=== PATIENT | female | born 1970 | race Caucasian/White ===

== ENCOUNTER 2021-12-09 10:50 | Outpatient (CLI) | payer OTHER, SELFPAY ==
--- NOTE | ~2021-12-09 | XR_ITS ---
XR hip RT min 2V DATE: 12/09/2021 11:10 INDICATION: Right hip pain TECHNIQUE: AP and lateral views of right hip COMPARISON: None FINDINGS: Battery pack overlying right lower back, with right sacral neural foraminal lead. Normal alignment and mild to moderate degenerative change at the pubic symphysis and sacroiliac joint s. No fracture or dislocation, avascular necrosis or bone destruction of the right hip. There is mild ri ght hip osteoarthritis. IMPRESSION: Mild right hip osteoarthritis Reviewed, dictated and finalized at location B.
--- NOTE | ~2021-12-09 | XR_ITS ---
XR shoulder LT min 2V DATE: 12/09/2021 11:10 INDICATION: Left shoulder pain TECHNIQUE: 4 views COMPARISON: None FINDINGS: There is mild degenerative change at the left acromioclavicular joint. There is minimal per iarticular spurring of the humeral head consistent with mild left glenohumeral osteoarthritis. Normal alignment at the acromioclavicular and glenohumeral joints. No fracture or dislocation, periosteal r eaction or bone destruction or abnormal soft tissue calcification. There is mild dextroscoliosis as well as degenerative spurring of the upper thoracic spine. IMPRESSION: Mild degenerative changes at left acromioclavicular and glenohumeral joints Reviewed, dictated and finalized at location B. IMPRESSION: Mild degenerative changes at left acromioclavicular and glenohumera l joints
== END 2021-12-09 10:51 | disposition home or self-care (01) ==
PROVIDERS: PCP Nurse Practitioner; Visit Provider Nurse Practitioner
DX: M19.012 Primary osteoarthritis, left shoulder (principal); M16.11 Unilateral primary osteoarthritis, right hip
CPT/HCPCS: 73030; 73502

== ENCOUNTER 2022-05-15 10:11 | Outpatient (CLI) | payer OTHER, SELFPAY ==
--- NOTE | ~2022-05-15 | MM_ITS ---
EXAMINATION: MM screening [facility] BI w cornelia HISTORY: Screening mammogram TECHNIQUE: Craniocaudal and mediolateral oblique 3-D tomosynthesis images were obtained and synthetic 2-D images were generated. CAD analysis was submitted and interpreted. COMPARISON: 09/08/2016, 01/08/2015, 08/08/2013 BREAST PARENCHYMAL COMPOSITION: There are scattered areas of fibroglandular density. FINDINGS: No suspicious mass, calcification, or architectural distortion are identified in either homar ast to suggest malignancy. There has been no suspicious interval change. IMPRESSION: 1. No mammographic evidence of malignancy. 2. Recommend routine screening mammography in one year. BI-RADS Category 1: Negative Reviewed, dictated and finalized at location A. PER OPENER
== END 2022-05-15 10:12 | disposition home or self-care (01) ==
LOC: ANHIMG 10:14
PROVIDERS: PCP Nurse Practitioner; Visit Provider Nurse Practitioner
DX: Z12.31 Encounter for screening mammogram for malignant neoplasm of breast (principal)
CPT/HCPCS: 77063; 77067

== ENCOUNTER 2022-05-27 01:49 | Day surgery (SDC) | payer OTHER, SELFPAY ==
[2022-05-14 15:12] VITALS: BMI 32.3
[2022-05-27 08:42] VITALS: BP 151/100; PULSE 93; RESP 18; TEMP 36.2; O2SAT 99; BMI 37.0
[2022-05-27] MEDS: LACTATED RINGERS 1,000 ML 150 ML IV CONT (08:57)
--- NOTE | 2022-05-27 09:23 | WPDANESEPPF ---
Anes - Initial Pre Proc Eval Procedure: Operation Date: 05/27/22 09:45 Proposed Procedures p Esophagogastroduodenoscopy EGD - Drake Moreau MD Date/Time: 05/27/22 09:23 Surgeon: Drake Moreau MD Pre Op Diagnosis: gastric ulcer Patient Data Age: 51 Gender: F Height: 1.68 m Weight: 104.1 kg Last Vital Signs Temp 97.1 F L 05/27/22 08:42 Pulse 93 05/27/22 08:42 Resp 18 05/27/22 08:42 BP 151/100 H 05/27/22 08:42 Pulse Ox 99 05/27/22 08:42 O2 Del Method Room Air 05/27/22 08:42 Allergies Allergy/AdvReac Type Severity Reaction Status Date / Time No Known Allergies Allergy Verified 05/14/22 15:13 Home Medications Medication Instructions Recorded Confirmed Type acetaminophen 500 mg tablet 500 mg PO Q6H PRN Pain 04/14/22 05/14/22 History (Tylenol Extra Strength) amlodipine 10 mg tablet 10 mg PO DAILY 04/14/22 05/14/22 History bupropion HCl 300 mg 24 hr tablet, 450 mg PO QAM 04/14/22 05/14/22 History extended release clonidine HCl 0.1 mg tablet 0.1 mg PO DAILY 04/14/22 05/14/22 History duloxetine 60 mg capsule,delayed 60 mg PO BID 04/14/22 05/14/22 History release folic acid 800 mcg tablet 1 mg PO DAILY 04/14/22 05/14/22 History multivitamin (Daily Multi-Vitamin 1 tablet PO DAILY 04/14/22 05/14/22 History tablet) omeprazole 40 mg capsule,delayed 40 mg PO BID 04/14/22 05/14/22 History release tizanidine 4 mg capsule 4 mg PO TID PRN Muscle Spasm 04/14/22 05/14/22 History trazodone 150 mg tablet 150 mg PO QHS 04/14/22 05/14/22 History hydroxyzine pamoate 50 mg capsule 50 mg PO Q6H PRN Anxiety 05/14/22 05/14/22 History losartan 100 mg tablet 100 mg PO DAILY 05/14/22 05/14/22 History Patient hx anesthesia problems: none Family hx anesthesia problems: none Results Review: All pre-operative results and documents have been reviewed as part of the pre-operative evaluation. [facility] Past Medical History Medical History (Updated 04/14/22 @ 10:44 by PATIENCE Orellana) Anxiety Arthritis Cancer Gastric ulcer Hypertension IBS (irritable bowel syndrome) Migraine Pheochromocytoma Tobacco abuse Ulcer Social History Social History (Updated 04/14/22 @ 10:39 by David Fernandez) Smoking status: Current some day smoker Tobacco type: e-cigarettes/vaping Alcohol intake: current Drinks per week: 2 Alcohol use details: wine Substance use: never Substance use type: marijuana Last use: occasional Living arrangements: alone Spiritual care concerns: No Anes - Eval Final PreProcedure Day of Procedure 05/27/22 09:23 Patient weight: obese Heart: regular rate and rhythm Lungs: clear to auscultation Airway: Mallampati scale class II Neurological: alert and oriented Last oral intake: >/= 8 hours ASA classification: III Emergent: no Anesthetic plan: proceed Anesthesia type and monitoring: general GIVS and standard monitoring Results Review: All pre-operative results and documents have been reviewed as part of the pre-operative evaluation. Informed Consent: The patient's anesthetic plan and its attendant risks and benefits were discussed with the patient/family/POA. Questions were solicited and answers provided to the satisfaction of the patient/family/POA.
--- NOTE | 2022-05-27 09:46 | PM.HPGS ---
History of Present Illness History of Present Illness Consent: Risks, benefits, and alternatives have been discussed and questions answered. Patient agrees to proceed with procedure. Chief complaint: gastric ulcer Narrative: Lyudmila Isidro is a 51 year old female with gastric bypass 2013 and earlier this year had gastric ulcer, repeat egd at another hospital showed healing, she is using ppi daiy. Review of Systems Constitutional: Constitutional: Denies headache(s) and Denies weakness Eyes: Eyes: Denies blurry vision ENT: Reports Normal hearing present, Denies headache(s) and Denies neck pain Cardiovascular: Cardiovascular: Denies chest pain and Denies dyspnea Respiratory: Respiratory: Denies dyspnea Gastrointestinal: Gastrointestinal: Reports no additional gastrointestinal complaints Genitourinary: Genitourinary: Denies dysuria Musculoskeletal: Musculoskeletal: Denies neck pain Integumentary/Breasts: Skin/Breast: Denies dry skin Neurologic: Reports Normal hearing present, Denies headache(s) and Denies weakness Psychiatric: Psychiatric: Denies anxiety Endocrine: Endocrine: Denies change in body appearance Hematologic/Lymphatic: Hematologic/Lymphatic: Denies easy bleeding Allergic/Immunologic: Allergic/Immunologic: Denies urticaria PMFSH Past Medical History Medical History (Updated 04/14/22 @ 10:44 by PATIENCE Orellana) Anxiety Arthritis Cancer Gastric ulcer Hypertension IBS (irritable bowel syndrome) Migraine Pheochromocytoma Tobacco abuse Ulcer Surgical History Surgical History (Updated 05/27/22 @ 09:47 by Drake Moreau MD) Gastric bypass status for obesity Social History Social History (Updated 04/14/22 @ 10:39 by David Fernandez) Smoking status: Current some day smoker Tobacco type: e-cigarettes/vaping Alcohol intake: current Drinks per week: 2 Alcohol use details: wine Substance use: never Substance use type: marijuana Last use: occasional Living arrangements: alone Spiritual care concerns: No Meds Home Medications and Allergies Home Medications Medication Instructions Recorded Confirmed Type acetaminophen 500 mg tablet 500 mg PO Q6H PRN Pain 04/14/22 05/14/22 History (Tylenol Extra Strength) amlodipine 10 mg tablet 10 mg PO DAILY 04/14/22 05/14/22 History bupropion HCl 300 mg 24 hr tablet, 450 mg PO QAM 04/14/22 05/14/22 History extended release clonidine HCl 0.1 mg tablet 0.1 mg PO DAILY 04/14/22 05/14/22 History duloxetine 60 mg capsule,delayed 60 mg PO BID 04/14/22 05/14/22 History release folic acid 800 mcg tablet 1 mg PO DAILY 04/14/22 05/14/22 History multivitamin (Daily Multi-Vitamin 1 tablet PO DAILY 04/14/22 05/14/22 History tablet) omeprazole 40 mg capsule,delayed 40 mg PO BID 04/14/22 05/14/22 History release tizanidine 4 mg capsule 4 mg PO TID PRN Muscle Spasm 04/14/22 05/14/22 History trazodone 150 mg tablet 150 mg PO QHS 04/14/22 05/14/22 History hydroxyzine pamoate 50 mg capsule 50 mg PO Q6H PRN Anxiety 05/14/22 05/14/22 History losartan 100 mg tablet 100 mg PO DAILY 05/14/22 05/14/22 History Allergies Allergy/AdvReac Type Severity Reaction Status Date / Time No Known Allergies Allergy Verified 05/14/22 15:13 Vital Signs Vital Signs - 24 hr 05/27/22 08:42 Temperature 97.1 F L Pulse Rate 93 Respiratory Rate 18 Blood Pressure 151/100 H Pulse Oximetry 99 Oxygen Delivery Room Air Exam Const: General: comfortable and no acute distress HENMT: Face/Nose/Sinus: Normal nares present Eyes: General: appearance normal, both eyes and all related structures Neck: Neck: no JVD Resp: Auscultation: clear to auscultation bilaterally Cardio: Rate: regular rate Rhythm: regular rhythm GI: Inspection: non-distended GI Palp: Yes Soft to palpation Skin: General skin exam: normal color Neuro: General: gait normal Speech: normal speech Extrem: General: normal to insp
[2022-05-27 10:03] VITALS: BP 141/92; PULSE 88; RESP 22; O2SAT 95
[2022-05-27 10:13] VITALS: BP 155/100; PULSE 104; RESP 22; O2SAT 95
[2022-05-27 10:23] VITALS: BP 163/93; PULSE 92; RESP 21; O2SAT 97
== END 2022-05-27 10:38 | disposition home or self-care (01) ==
PROVIDERS: PCP Nurse Practitioner; Visit Provider Internal Medicine Gastroenterology
PROC: 0DJ08ZZ Inspection of Upper Intestinal Tract, Via Natural or Artificial Opening Endoscopic (ICD-10-PCS; CPT 43235; principal; 2022-05-27 09:45)
DX: Z09 Encounter for follow-up examination after completed treatment for conditions other than malignant neoplasm (principal); Z98.84 Bariatric surgery status; Z87.11 Personal history of peptic ulcer disease; I10 Essential (primary) hypertension; K58.9 Irritable bowel syndrome, unspecified; F17.290 Nicotine dependence, other tobacco product, uncomplicated
CPT/HCPCS: 43235; J2704; J7120

== ENCOUNTER 2022-07-21 13:39 | Outpatient (CLI) | payer OTHER, SELFPAY ==
--- NOTE | ~2022-07-21 | XR_ITS ---
Right Hand Technique: PA, oblique, and lateral views were obtained. Clinical History: Thumb pain Findings: No acute fracture or dislocation is seen. Osseous alignment is anatomic. Mild to moderate d egenerative change present at the first CMC joint. Soft tissues are unremarkable. Impression: No fracture or dislocation. Mild to moderate degenerative change at the first CMC joint. Reviewed, dictated and finalized at [facility]. 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 Mild to moderate degenerative change at the first CMC joint.
== END 2022-07-21 13:40 | disposition home or self-care (01) ==
PROVIDERS: PCP Nurse Practitioner; Visit Provider Nurse Practitioner
DX: M19.041 Primary osteoarthritis, right hand (principal)
CPT/HCPCS: 73130

== ENCOUNTER 2023-04-15 14:34 | Emergency (ER) | payer OTHER, SELFPAY ==
--- NOTE | ~2023-04-15 | XR_ITS ---
XR lumbar spine 2-3V 04/15/2023 15:03 Indication: Low back pain Procedure: 3 views lumbar spine Comparison: No prior studies for comparison. Findings: Vertebral body heights are maintained. There is degenerative grade 1 spondylolisthesis at L 3-4. There is disc narrowing at all lumbar levels. There is facet hypertrophy at L4-5 and L5-S1. Pedi cles intact. Sacral foramen are symmetric. There is a right transsacral lead, tip in the pelvis. Impression: 1: Moderate lumbar spondylosis. Reviewed, dictated and finalized at location A. Impression: 1: Moderate lumbar spondylosis.
--- NOTE | 2023-04-15 14:41 | ED.GENADULT ---
HPI - General Adult General Chief complaint: Fall Stated complaint: Fall Time Seen by Provider: 04/15/23 14:43 Source: patient, RN notes reviewed and old records reviewed Mode of arrival: ambulatory Limitations: no limitations History of Present Illness HPI narrative: 52-year-old female with a history of hypertension, anxiety and GERD presents to the [facility] with complaints of low back pain due to a slip and fall. Patient is unsure of how she fell but states that she was states that she was drinking alcohol last night when she fell down a couple of stairs. Reports generalized lower back pain. No bruising or swelling noted. No midline tenderness. No saddle anesthesia. No loss retention of bowel or bladder. Denies abdominal pain. Patient also states that she has bruising to the right lateral lower thigh, no pain or tenderness on palpation. Bruising appears older than 24 hours. Patient states last time she took her blood pressure medication was yesterday. No treatment prior to arrival Denies any headaches, blurry vision, change in vision. Denies any neck pain. While discussing negative x-ray or her lumbar spine patient reports that it feels like her heart is now racing. Has a history of anxiety, shortness of breath. Patient then reports that she has been drinking since Wednesday and has amnesia. Performed EKG. EKG she was showing sinus tach. Patient is pacing in room. Normal gait. Due to possible withdrawal symptoms, x-ray wanted to sent patient to ER for further evaluation, patient declined. Patient is alert and oriented x4. Answers questions appropriately. While patient was here had multiple changes of story including how long she had been drinking for ranging from 1-4 days. Patient not a very good historian Onset (ago): day(s) (1) Related Data Home Medications Medication Instructions Recorded Confirmed acetaminophen 500 mg tablet 500 mg PO Q6H PRN Pain 04/14/22 04/15/23 (Tylenol Extra Strength) amlodipine 10 mg tablet 10 mg PO DAILY 04/14/22 04/15/23 bupropion HCl 300 mg 24 hr tablet, 450 mg PO QAM 04/14/22 04/15/23 extended release clonidine HCl 0.1 mg tablet 0.1 mg PO DAILY 04/14/22 04/15/23 duloxetine 60 mg capsule,delayed 60 mg PO BID 04/14/22 04/15/23 release folic acid 800 mcg tablet 1 mg PO DAILY 04/14/22 04/15/23 multivitamin (Daily Multi-Vitamin 1 tablet PO DAILY 04/14/22 04/15/23 tablet) omeprazole 40 mg capsule,delayed 40 mg PO BID 04/14/22 04/15/23 release tizanidine 4 mg capsule 4 mg PO TID PRN Muscle Spasm 04/14/22 04/15/23 trazodone 150 mg tablet 150 mg PO QHS 04/14/22 04/15/23 hydroxyzine pamoate 50 mg capsule 50 mg PO Q6H PRN Anxiety 05/14/22 04/15/23 losartan 100 mg tablet 100 mg PO DAILY 05/14/22 04/15/23 Allergies Allergy/AdvReac Type Severity Reaction Status Date / Time No Known Allergies Allergy Verified 04/15/23 14:39 Review of Systems Review of Systems: All systems reviewed & are unremarkable except as noted in HPI and below Constitutional: Constitutional: Reports no additional constitutional complaints Eyes: Eyes: Reports no additional eye complaints ENT: Reports system reviewed and no additional complaints, except as documented Cardiovascular: Cardiovascular: Reports no additional cardiovascular complaints, Denies chest pain and Denies dyspnea Respiratory: Respiratory: Reports no additional respiratory complaints, Denies chest congestion, Denies cough and Denies dyspnea Gastrointestinal: Gastrointestinal: Reports no additional gastrointestinal complaints, Denies abdominal pain, Denies nausea and Denies vomiting Musculoskeletal: Musculoskeletal: Reports as per HPI Integumentary/Breasts: Skin/Breast: Reports system reviewed and no additional complaints, except as docu Neurologic: Reports as per HPI, Denies headache(s) and Reports other (Amnesia times 3-4 days) Psychiatric: Psychiatric: Reports as per HPI and Reports anxiety Allergic/Immunologic: Allergic/Immunol
[2023-04-15 14:45] VITALS: BP 189/103; PULSE 113; RESP 16; TEMP 37.1; O2SAT 100
[2023-04-15 15:15] VITALS: BP 194/93; PULSE 103
--- NOTE | 2023-04-15 15:18 | ECG_ITS ---
Measurements Intervals [place] Rate: 103 P: -4 NV: 158 QRS: 29 QRSD: 99 T: 13 QT: 342 QTc: 449 Interpretive Statements SINUS TACHYCARDIA BASELINE ARTIFACT- I, III, AVR, AVL, AVF BORDERLINE ECG NO PREVIOUS ECG AVAILABLE FOR COMPARISON Electronically Signed On 04-15-2023 15:24:07 CDT by Marcio Schumacher D.O.
[2023-04-15 15:32] VITALS: BP 180/98
== END 2023-04-15 15:50 | disposition left against medical advice (07) ==
PROVIDERS: Emergency Provider Nurse Practitioner; PCP Nurse Practitioner
DX: S39.012A Strain of muscle, fascia and tendon of lower back, initial encounter (principal); F41.9 Anxiety disorder, unspecified; I10 Essential (primary) hypertension; F17.290 Nicotine dependence, other tobacco product, uncomplicated; Z79.899 Other long term (current) drug therapy; W10.9XXA Fall (on) (from) unspecified stairs and steps, initial encounter
CPT/HCPCS: 72100; 93005; 99213; G0463

== ENCOUNTER 2023-06-01 02:31 | Day surgery (SDC) | payer OTHER, SELFPAY ==
[2023-05-17 13:31] VITALS: BMI 28.3
--- NOTE | 2023-05-24 11:58 | SUR.PREOP ---
Patient called regarding upcoming procedure. Message left on patient's voicemail regarding preop instructions, appointment times, and procedure prep.
[2023-06-01] VITALS (8 sets, daily range): BP systolic 163–202; BP diastolic 90–117; PULSE 69–83; RESP 18–23; TEMP 36.3; O2SAT 99–100; BMI 27.2
--- NOTE | 2023-06-01 08:50 | SUR.PREOP ---
MD Quesada attempted to be notified of pt BP and oral intake. was in procedure. awaiting callback. pt denies symptoms.
--- NOTE | 2023-06-01 09:11 | WPDANESEPPF ---
Anes - Initial Pre Proc Eval Procedure: Operation Date: 06/01/23 10:00 Proposed Procedures p Esophagogastroduodenoscopy - Drake Moreau MD Date/Time: 06/01/23 09:11 Surgeon: Drake Moreau MD Pre Op Diagnosis: GERD,Neoplasm screening Patient Data Age: 52 Gender: F Height: 1.68 m Weight: 76.6 kg Last Vital Signs Temp 36.3 C L 06/01/23 08:42 Pulse 80 06/01/23 08:42 Resp 20 06/01/23 08:42 BP 202/109 H 06/01/23 08:42 Pulse Ox 99 06/01/23 08:42 O2 Del Method Room Air 06/01/23 08:42 Allergies Allergy/AdvReac Type Severity Reaction Status Date / Time No Known Allergies Allergy Verified 06/01/23 08:40 Home Medications Medication Instructions Recorded Confirmed Type acetaminophen 500 mg tablet 500 mg PO Q6H PRN Pain 04/14/22 05/17/23 History (Tylenol Extra Strength) bupropion HCl 300 mg 24 hr tablet, 300 mg PO QAM 04/14/22 05/17/23 History extended release clonidine HCl 0.1 mg tablet 0.1 mg PO BID 04/14/22 05/17/23 History duloxetine 60 mg capsule,delayed 60 mg PO BID 04/14/22 05/17/23 History release multivitamin (Daily Multi-Vitamin 1 tablet PO DAILY 04/14/22 05/17/23 History tablet) tizanidine 4 mg capsule 4 mg PO BID PRN Muscle Spasm 04/14/22 05/17/23 History trazodone 150 mg tablet 150 mg PO QHS 04/14/22 05/17/23 History bupropion HCl 150 mg 24 hr tablet, 150 mg PO DAILY 05/17/23 05/17/23 History extended release cetirizine 10 mg tablet 10 mg PO DAILY 05/17/23 05/17/23 History ergocalciferol (vitamin D2) 1,250 50,000 unit PO WEEKLY 05/17/23 05/17/23 History mcg (50,000 unit) capsule (Vitamin D2) fluticasone propionate 50 50 mcg intranasal DAILY 05/17/23 05/17/23 History mcg/actuation nasal spray,suspension folic acid 1 mg tablet 1 mg PO DAILY 05/17/23 05/17/23 History hydroxyzine pamoate 25 mg capsule 25 mg PO Q6H PRN Anxiety 05/17/23 05/17/23 History lamotrigine 200 mg tablet 200 mg PO DAILY 05/17/23 05/17/23 History losartan 50 mg tablet 50 mg PO DAILY 05/17/23 05/17/23 History mecobalamin (vitamin B12) 500 mcg 500 mcg PO DAILY 05/17/23 05/17/23 History chewable tablet melatonin 5 mg tablet 5 mg PO HS PRN Insomnia 05/17/23 05/17/23 History pantoprazole 40 mg tablet,delayed 40 mg PO DAILY 05/17/23 05/17/23 History release phentermine 37.5 mg tablet 37.5 mg PO DAILY 05/17/23 05/17/23 History Patient hx anesthesia problems: none Family hx anesthesia problems: none Results Review: All pre-operative results and documents have been reviewed as part of the pre-operative evaluation. [facility] Past Medical History Medical History Anxiety Arthritis Cancer Gastric ulcer Hypertension IBS (irritable bowel syndrome) Migraine Pheochromocytoma Tobacco abuse Ulcer Surgical History Surgical History Gastric bypass status for obesity Social History Social History Smoking status: Current some day smoker Tobacco type: cigars Alcohol intake: never Drinks per week: 2 Alcohol use details: wine Substance use: former Substance use type: former substance user, methamphetamine and other Last use: occasional Living arrangements: with family Spiritual care concerns: No Anes - Eval Final PreProcedure Day of Procedure 06/01/23 09:11 Patient weight: overweight Heart: regular rate and rhythm Lungs: clear to auscultation Airway: Mallampati scale class II Neurological: alert and oriented Last oral intake: >/= 8 hours ASA classification: III Emergent: no Anesthetic plan: proceed Anesthesia type and monitoring: general GIVS and standard monitoring Results Review: All pre-operative results and documents have been reviewed as part of the pre-operative evaluation. Informed Consent: The patient's anesthetic plan and its attendant risks and b
[2023-06-01] MEDS: LACTATED RINGERS 1,000 ML 150 ML IV CONT (09:15)
--- NOTE | 2023-06-01 09:46 | PM.HPGS ---
History of Present Illness History of Present Illness Consent: Risks, benefits, and alternatives have been discussed and questions answered. Patient agrees to proceed with procedure. Chief complaint: GERD,Neoplasm screening Narrative: Lyudmila Isidro is a 52 year old female here for egd, had?gastric bypass 2013?with previous ulcer but EGD last year was ok, she is taking ppi. She is c/o dry mouth and sore tongue Review of Systems Constitutional: Constitutional: Denies headache(s) and Denies weakness Eyes: Eyes: Denies blurry vision ENT: Reports Normal hearing present, Denies headache(s) and Denies neck pain Cardiovascular: Cardiovascular: Denies chest pain and Denies dyspnea Respiratory: Respiratory: Denies dyspnea Gastrointestinal: Gastrointestinal: Reports no additional gastrointestinal complaints Genitourinary: Genitourinary: Denies dysuria Musculoskeletal: Musculoskeletal: Denies neck pain Integumentary/Breasts: Skin/Breast: Denies dry skin Neurologic: Reports Normal hearing present, Denies headache(s) and Denies weakness Psychiatric: Psychiatric: Denies anxiety Endocrine: Endocrine: Denies change in body appearance Hematologic/Lymphatic: Hematologic/Lymphatic: Denies easy bleeding Allergic/Immunologic: Allergic/Immunologic: Denies urticaria PMF Past Medical History Medical History (Updated 06/01/23 @ 09:48 by Drake Moreau MD) Anxiety Arthritis Cancer Gastric ulcer GERD (gastroesophageal reflux disease) Hypertension IBS (irritable bowel syndrome) Migraine Pheochromocytoma Tobacco abuse Ulcer Surgical History Surgical History Gastric bypass status for obesity Social History Social History Smoking status: Current some day smoker Tobacco type: cigars Alcohol intake: never Drinks per week: 2 Alcohol use details: wine Substance use: former Substance use type: former substance user, methamphetamine and other Last use: occasional Living arrangements: with family Spiritual care concerns: No Meds Home Medications and Allergies Home Medications Medication Instructions Recorded Confirmed Type acetaminophen 500 mg tablet 500 mg PO Q6H PRN Pain 04/14/22 05/17/23 History (Tylenol Extra Strength) bupropion HCl 300 mg 24 hr tablet, 300 mg PO QAM 04/14/22 05/17/23 History extended release clonidine HCl 0.1 mg tablet 0.1 mg PO BID 04/14/22 05/17/23 History duloxetine 60 mg capsule,delayed 60 mg PO BID 04/14/22 05/17/23 History release multivitamin (Daily Multi-Vitamin 1 tablet PO DAILY 04/14/22 05/17/23 History tablet) tizanidine 4 mg capsule 4 mg PO BID PRN Muscle Spasm 04/14/22 05/17/23 History trazodone 150 mg tablet 150 mg PO QHS 04/14/22 05/17/23 History bupropion HCl 150 mg 24 hr tablet, 150 mg PO DAILY 05/17/23 05/17/23 History extended release cetirizine 10 mg tablet 10 mg PO DAILY 05/17/23 05/17/23 History ergocalciferol (vitamin D2) 1,250 50,000 unit PO WEEKLY 05/17/23 05/17/23 History mcg (50,000 unit) capsule (Vitamin D2) fluticasone propionate 50 50 mcg intranasal DAILY 05/17/23 05/17/23 History mcg/actuation nasal spray,suspension folic acid 1 mg tablet 1 mg PO DAILY 05/17/23 05/17/23 History hydroxyzine pamoate 25 mg capsule 25 mg PO Q6H PRN Anxiety 05/17/23 05/17/23 History lamotrigine 200 mg tablet 200 mg PO DAILY 05/17/23 05/17/23 History losartan 50 mg tablet 50 mg PO DAILY 05/17/23 05/17/23 History mecobalamin (vitamin B12) 500 mcg 500 mcg PO DAILY 05/17/23 05/17/23 History chewable tablet melatonin 5 mg tablet 5 mg PO HS PRN Insomnia 05/17/23 05/17/23 History pantoprazole 40 mg tablet,delayed 40 mg PO DAILY 05/17/23 05/17/23 History release phentermine 37.5 mg tablet 37.5 mg PO DAILY 05/17/23 05/17/23 History Allergies Allergy/AdvReac Type Severity Reaction Status Date / Time No
--- NOTE | 2023-06-01 10:43 | SUR.PHASEII ---
pt had high blood pressure doing pre op, procedure, and postop. hydralazine 10mg given iv per yayo marcial crna. see bp flowsheet for vs. at 15 minutes after hydralazine, dr guadalupe informed of pts bp of 163/98. he rec pt be discharged and instructed to take bp meds as soon as she gets home. pt states she has not been very compliant with her meds recently. strongly encouraged pt to take meds as instructed and to get in touch with her pcp to discuss her bp readings. voiced understanding.
== END 2023-06-01 10:42 | disposition home or self-care (01) ==
PROVIDERS: PCP Nurse Practitioner; Visit Provider Internal Medicine Gastroenterology
PROC: 0DJ08ZZ Inspection of Upper Intestinal Tract, Via Natural or Artificial Opening Endoscopic (ICD-10-PCS; CPT 43235; principal; 2023-06-01 10:00)
DX: K29.50 Unspecified chronic gastritis without bleeding (principal); K21.9 Gastro-esophageal reflux disease without esophagitis; Z98.84 Bariatric surgery status; K58.9 Irritable bowel syndrome, unspecified; F41.9 Anxiety disorder, unspecified; I10 Essential (primary) hypertension; F17.290 Nicotine dependence, other tobacco product, uncomplicated; Z79.82 Long term (current) use of aspirin
CPT/HCPCS: 43239; 88305; J0360; J7120

== ENCOUNTER 2023-12-31 17:58 | Emergency (ER) | payer OTHER, SELFPAY ==
[2023-12-31 18:09] VITALS: BP 116/64; PULSE 87; RESP 14; TEMP 37.3; O2SAT 100
--- NOTE | 2023-12-31 18:54 | ED.GENADULT ---
HPI - General Adult General Chief complaint: Syncope Stated complaint: Fainted/Dizziness/Right Ankle Pain Source: patient Mode of arrival: ambulatory Limitations: no limitations History of Present Illness HPI narrative: Patient presents for evaluation after having a syncopal event just prior to arrival. She indicates she has had fairly constant lightheadedness for the last 4 days. Today she was walking to the refrigerator when she felt dizzy. She attempted to hold onto the refrigerator and found herself waking up on the floor. She thinks she hit her head. She is not sure the duration of time in which she had loss consciousness. No vomiting since the episode. She now reports pain in her occipital region of the head and in the right ankle. She denies any precipitating chest pain or shortness of breath. She believes she has a urinary tract infection. She states she has had urinary frequency and dysuria for 4 days. She also makes mention of the fact that she has had urinary and fecal incontinence as of late. She has a neurostimulator but is not currently turned on. She has a history of methamphetamine use but last use 3 weeks ago. Related Data Home Medications Medication Instructions Recorded Confirmed acetaminophen 500 mg tablet 500 mg PO Q6H PRN Pain 04/14/22 12/31/23 (Tylenol Extra Strength) bupropion HCl 300 mg 24 hr tablet, 300 mg PO QAM 04/14/22 12/31/23 extended release clonidine HCl 0.1 mg tablet 0.1 mg PO BID 04/14/22 12/31/23 duloxetine 60 mg capsule,delayed 60 mg PO BID 04/14/22 12/31/23 release multivitamin (Daily Multi-Vitamin 1 tablet PO DAILY 04/14/22 12/31/23 tablet) tizanidine 4 mg capsule 4 mg PO BID PRN Muscle Spasm 04/14/22 12/31/23 trazodone 150 mg tablet 150 mg PO QHS 04/14/22 12/31/23 bupropion HCl 150 mg 24 hr tablet, 150 mg PO DAILY 05/17/23 12/31/23 extended release cetirizine 10 mg tablet 10 mg PO DAILY 05/17/23 12/31/23 ergocalciferol (vitamin D2) 1,250 50,000 unit PO WEEKLY 05/17/23 12/31/23 mcg (50,000 unit) capsule (Vitamin D2) fluticasone propionate 50 50 mcg intranasal DAILY 05/17/23 12/31/23 mcg/actuation nasal spray,suspension folic acid 1 mg tablet 1 mg PO DAILY 05/17/23 12/31/23 hydroxyzine pamoate 25 mg capsule 25 mg PO Q6H PRN Anxiety 05/17/23 12/31/23 lamotrigine 200 mg tablet 200 mg PO DAILY 05/17/23 12/31/23 losartan 50 mg tablet 50 mg PO DAILY 05/17/23 12/31/23 mecobalamin (vitamin B12) 500 mcg 500 mcg PO DAILY 05/17/23 12/31/23 chewable tablet melatonin 5 mg tablet 5 mg PO HS PRN Insomnia 05/17/23 12/31/23 pantoprazole 40 mg tablet,delayed 40 mg PO DAILY 05/17/23 12/31/23 release phentermine 37.5 mg tablet 37.5 mg PO DAILY 05/17/23 12/31/23 amlodipine 5 mg tablet 5 mg PO DAILY 12/31/23 12/31/23 aripiprazole 2 mg tablet 2 mg PO DAILY 12/31/23 12/31/23 Allergies Allergy/AdvReac Type Severity Reaction Status Date / Time No Known Allergies Allergy Verified 12/31/23 17:59 Review of Systems Review of Systems: CONSTITUTIONAL: Denies fever, chills, or sweats. EYES: Denies visual changes, redness, or discharge. ENT: Denies rhinorrhea, congestion, sore throat, or otalgia. CARDIOVASCULAR: Denies chest pain, palpitations, or edema. RESPIRATORY: Denies cough or dyspnea. GASTROINTESTINAL: Denies abdominal pain, nausea, or vomiting. Reports recent fecal incontinence which is diarrhea GENITOURINARY: Reports urinary frequency and dysuria. Reports recent urinary incontinence. SKIN: Denies rash or itching. MUSCULOSKELETAL: Reports right ankle pain NEUROLOGIC: Reports headache. Reports syncopal episode earlier today. Reports lightheadedness for the past four days. PSYCHIATRIC: Denies anxiety or depression. [facility] Past Medical History Medical History Anxiety Arthritis Cancer Gastric ulcer GERD (gastroesophageal reflux disease) Hypertension IBS (irritable bowel syndrome) Migraine [place]
== END 2023-12-31 18:52 | disposition short-term general hospital (02) ==
PROVIDERS: Emergency Provider Nurse Practitioner; PCP Nurse Practitioner
DX: R55 Syncope and collapse (principal); F17.290 Nicotine dependence, other tobacco product, uncomplicated; M19.90 Unspecified osteoarthritis, unspecified site; K21.9 Gastro-esophageal reflux disease without esophagitis; I10 Essential (primary) hypertension; E66.9 Obesity, unspecified; Z68.25 Body mass index [BMI] 25.0-25.9, adult; Z98.84 Bariatric surgery status
CPT/HCPCS: 93005; 99213; G0463

== ENCOUNTER 2023-12-31 19:08 | Emergency (ER) | payer OTHER, SELFPAY ==
[2023-12-31 19:12] VITALS: BP 116/76; PULSE 77; RESP 18; TEMP 36.7; O2SAT 100
--- NOTE | 2023-12-31 19:17 | ECG_ITS ---
Test Date: 2023-12-31 19:23:01 Measurements Intervals Winn Rate: 75 P: 40 MS: 139 QRS: 39 QRSD: 87 T: 51 QT: 376 QTc: 422 Interpretive Statements SINUS RHYTHM NORMAL ECG No previous ECG available for comparison Electronically Signed On 12-31-2023 20:10:48 CDT by Marcio Schumacher D.O.
--- NOTE | 2023-12-31 20:32 | PC.NURSE ---
Pt came up to front desk person stating she is going to leave. Educated on risks/benefits and to come back for any worsening condition. Pt left at 2020.
== END 2023-12-31 20:20 | disposition left against medical advice (07) ==
PROVIDERS: Emergency Provider Emergency Medicine; PCP Nurse Practitioner
DX: R42 Dizziness and giddiness (principal)
CPT/HCPCS: 93005; 99199

== ENCOUNTER 2024-12-04 12:16 | Emergency (ER) | payer OTHER, SELFPAY ==
[2024-12-04 12:26] VITALS: BP 145/110; PULSE 100; RESP 20; TEMP 36.6; O2SAT 100
--- NOTE | 2024-12-04 14:36 | ED_ITS ---
HPI - General Adult General Chief complaint: Unspecified Stated complaint: joint pain Time Seen by Provider: 12/04/24 14:22 History of Present Illness HPI narrative: Pt presents with joint pain in hands and shoulders for several days. Pt denies fever. Pt is trying to make appointment with PCP. Pt denies injury. Pt has no FH of RA or other causes of arthiritis. Related Data Home Medications ?Medication ?Instructions ?Recorded ?Confirmed ?Last Taken ?Type acetaminophen 500 mg tablet 500 mg PO Q6H PRN Pain 04/14/22 12/31/23 05/31/23 History (Tylenol Extra Strength) bupropion HCl 300 mg 24 hr tablet, 300 mg PO QAM 04/14/22 12/31/23 05/31/23 History extended release clonidine HCl 0.1 mg tablet 0.1 mg PO BID 04/14/22 12/31/23 05/31/23 History duloxetine 60 mg capsule,delayed 60 mg PO BID 04/14/22 12/31/23 05/31/23 History release multivitamin (Daily Multi-Vitamin 1 tablet PO DAILY 04/14/22 12/31/23 05/31/23 History tablet) tizanidine 4 mg capsule 4 mg PO BID PRN Muscle Spasm 04/14/22 12/31/23 05/31/23 History trazodone 150 mg tablet 150 mg PO QHS 04/14/22 12/31/23 05/31/23 History bupropion HCl 150 mg 24 hr tablet, 150 mg PO DAILY 05/17/23 12/31/23 05/31/23 History extended release cetirizine 10 mg tablet 10 mg PO DAILY 05/17/23 12/31/23 05/31/23 History ergocalciferol (vitamin D2) 1,250 50,000 unit PO WEEKLY 05/17/23 12/31/23 05/31/23 History mcg (50,000 unit) capsule (Vitamin D2) fluticasone propionate 50 50 mcg intranasal DAILY 05/17/23 12/31/23 05/31/23 History mcg/actuation nasal spray,suspension folic acid 1 mg tablet 1 mg PO DAILY 05/17/23 12/31/23 05/31/23 History hydroxyzine pamoate 25 mg capsule 25 mg PO Q6H PRN Anxiety 05/17/23 12/31/23 05/31/23 History lamotrigine 200 mg tablet 200 mg PO DAILY 05/17/23 12/31/23 05/31/23 History losartan 50 mg tablet 50 mg PO DAILY 05/17/23 12/31/23 05/31/23 History mecobalamin (vitamin B12) 500 mcg 500 mcg PO DAILY 05/17/23 12/31/23 05/31/23 History chewable tablet melatonin 5 mg tablet 5 mg PO HS PRN Insomnia 05/17/23 12/31/23 05/31/23 History pantoprazole 40 mg tablet,delayed 40 mg PO DAILY 05/17/23 12/31/23 05/31/23 History release phentermine 37.5 mg tablet 37.5 mg PO DAILY 05/17/23 12/31/23 05/31/23 History amlodipine 5 mg tablet 5 mg PO DAILY 12/31/23 12/31/23 Unknown History aripiprazole 2 mg tablet 2 mg PO DAILY 12/31/23 12/31/23 Unknown History Allergies Allergy/AdvReac Type Severity Reaction Status Date / Time No Known Allergies Allergy Verified 12/04/24 12:29 Review of Systems Review of Systems: All systems reviewed & are unremarkable except as noted in HPI and below PMFSH Past Medical History Medical History Anxiety Arthritis Cancer Gastric ulcer GERD (gastroesophageal reflux disease) Hypertension IBS (irritable bowel syndrome) Migraine Pheochromocytoma Tobacco abuse Ulcer Surgical History Surgical History Gastric bypass status for obesity Family History Family History Mother Family history non-contributory Social History Social History Smoking status: Current some day smoker Tobacco type: cigars Alcohol intake: never Drinks per week: 2 Alcohol use details: wine Substance use type: former substance user, methamphetamine and other Last use: occasional Living arrangements: with family Gender identity (if verbalized by the patient): Female Spiritual care concerns: No Exam Const: General: cooperative, healthy appearing, comfortable and no acute distress HENMT: Head: normal to inspection Throat: posterior oropharynx normal Neck: Neck: normal visual inspection and full ROM Chest: Chest palpation & inspection: normal inspection of the chest Resp: Effort & Inspection: normal respiratory effort and able to speak in complete sentences Auscultation: clear to auscultation bilaterally Cardio: Rate: regular rate Rhythm: regular rhythm GI: Inspection: normal to inspection GI Palp: Yes abdominal tenderness Skin: General skin exam: normal color and no rashes or lesions noted Neuro: General: patient oriented x3 Speech: normal speech Motor exam (neuro): 5/5 motor strength present throughout Extrem: Other: swelling and tenderness to mcp joints o fnumerous fingers and tenderness ot shoulder joints. Pt needs arthritis work up outpatient and pt verbalized understanding of this and will call pcp. Will send home on course of prednisone for pain Psych: Appearance: grossly normal Mental Status: mental status grossly normal Course Vital Signs Vital signs: Vital Signs Temperature 98 F 12/04/24 12:26 Pulse Rate 100 12/04/24 12:26 Respiratory Rate 20 12/04/24 12:26 Blood Pressure 145/110 H 12/04/24 12:26 Pulse Oximetry 100 12/04/24 12:26 Oxygen Delivery Room Air 12/04/24 12:26 Temperature 98 F 12/04/24 12:26 Pulse Rate 100 12/04/24 12:26 Respiratory Rate 20 12/04/24 12:26 Blood Pressure 145/110 H 12/04/24 12:26 Pulse Oximetry 100 12/04/24 12:26 Oxygen Delivery Room Air 12/04/24 12:26 Medical Decision Making MDM Narrative Medical decision making narrative: Pt has polyarticluar arthiritis and needs outpatient work up. will send home on prednisone wean in meantime Vital Signs Vital Signs: Vital Signs Temperature 98 F 12/04/24 12:26 Pulse Rate 100 12/04/24 12:26 Respiratory Rate 20 12/04/24 12:26 Blood Pressure 145/110 H 12/04/24 12:26 Pulse Oximetry 100 12/04/24 12:26 Oxygen Delivery Room Air 12/04/24 12:26 Temperature 98 F 12/04/24 12:26 Pulse Rate 100 12/04/24 12:26 Respiratory Rate 20 12/04/24 12:26 Blood Pressure 145/110 H 12/04/24 12:26 Pulse Oximetry 100 12/04/24 12:26 Oxygen Delivery Room Air 12/04/24 12:26 Discharge Plan Discharge Clinical Impression: Polyarthritis Patient Disposition: Home Condition: Stable Instructions: Antibiotic Form, Autoimmune Disease (ED), Arthritis (ED) Patient Language: Marshallese Prescriptions: New prednisone 10 mg tablet See Taper PO DAILY 15 Days Qty: 45 0RF Taper: Prednisone Taper from 50 mg;15 days 50 mg DAILY for 3 Days and 0 Hour 40 mg DAILY for 3 Days and 0 Hour 30 mg DAILY for 3 Days and 0 Hour 20 mg DAILY for 3 Days and 0 Hour 10 mg DAILY for 3 Days and 0 Hour No Action amlodipine 5 mg tablet 5 mg PO DAILY aripiprazole 2 mg tablet 2 mg PO DAILY multivitamin [Daily Multi-Vitamin] Tablet 1 tablet PO DAILY acetaminophen [Tylenol Extra Strength] 500 mg tablet 500 mg PO Q6H PRN (Reason: Pain) clonidine HCl 0.1 mg tablet 0.1 mg PO BID tizanidine 4 mg capsule 4 mg PO BID PRN (Reason: Muscle Spasm) trazodone 150 mg tablet 150 mg PO QHS bupropion HCl 300 mg tablet extended release 24 hr 300 mg PO QAM duloxetine 60 mg capsule,delayed release(DR/EC) 60 mg PO BID losartan 50 mg tablet 50 mg PO DAILY lamotrigine 200 mg tablet 200 mg PO DAILY cetirizine 10 mg Tablet 10 mg PO DAILY pantoprazole 40 mg tablet,delayed release (DR/EC) 40 mg PO DAILY folic acid 1 mg tablet 1 mg PO DAILY ergocalciferol (vitamin D2) [Vitamin D2] 1,250 mcg (50,000 unit) capsule 50,000 unit PO WEEKLY fluticasone propionate 50 mcg/actuation spray,suspension 50 mcg INTRANASAL DAILY hydroxyzine pamoate 25 mg capsule 25 mg PO Q6H PRN (Reason: Anxiety) bupropion HCl 150 mg tablet extended release 24 hr 150 mg PO DAILY Rx Instructions: TAKE WITH 300MG FOR TOTAL 450MG DAILY melatonin 5 mg Tablet 5 mg PO HS PRN (Reason: Insomnia) mecobalamin (vitamin B12) 500 mcg Tablet,Chewable 500 mcg PO DAILY phentermine 37.5 mg Tablet 37.5 mg PO DAILY Rx Instructions: must administer 30 minutes before or 1-2 hours after breakfast Follow-up/Referrals: PHYSICIAN NOT ON STAFF,NONSTAFF [Non-Staff] -
== END 2024-12-04 15:14 | disposition home or self-care (01) ==
PROVIDERS: Emergency Provider Emergency Medicine
DX: M13.0 Polyarthritis, unspecified (principal); M25.542 Pain in joints of left hand; M25.541 Pain in joints of right hand; M25.512 Pain in left shoulder; M25.511 Pain in right shoulder; Z72.0 Tobacco use; Z98.84 Bariatric surgery status
CPT/HCPCS: 99281

== ENCOUNTER 2024-12-06 12:33 | Outpatient (CLI) | payer OTHER, SELFPAY ==
--- NOTE | ~2024-12-06 | XR_ITS ---
HISTORY: arthritis CHRONIC WORSENED PAIN COMPARISON: 07/21/2022 TECHNIQUE: 3 views of the bilateral hands were performed. FINDINGS: No acute fracture is identified. Gullwing deformity is identified within the proximal interphalangeal joint spaces of the second, thir d, fourth and fifth digits of both hands. Narrowing of the distal interphalangeal joints is also noted bilaterally. Degenerative disease within the first carpometacarpal joint space is identified bilaterally, right fa r more advanced than the left with bony remodeling and subchondral cyst formation. The remaining joint spaces are preserved. The carpal arcs of the left hand are intact. Crowding and joint space narrowing is identified within the carpal arcs of the right.. Moderate radiocarpal joint space narrowing with sclerosis of the distal radius is present, right wors e than left. Bone mineralization is age-appropriate. No significant soft tissue swelling. No radiopaque foreign body is identified. IMPRESSION: Severe degenerative disease, consistent with osteoarthritis based on distribution with the right hand far worse than the left, as detailed above. Reviewed, dictated and finalized at location A. IMPRESSION: Severe degenerative disease, consistent with osteoarthritis based on distributi on with the right hand far worse than the left, as detailed above.
== END 2024-12-06 12:34 | disposition home or self-care (01) ==
PROVIDERS: PCP Nurse Practitioner Family; Visit Provider Nurse Practitioner Family
DX: M19.041 Primary osteoarthritis, right hand (principal); M19.042 Primary osteoarthritis, left hand
CPT/HCPCS: 73130

== ENCOUNTER 2025-04-10 09:59 | Outpatient (CLI) | payer OTHER, SELFPAY ==
--- OUTSIDE RECORDS SUMMARY | 2025-01-25 06:40 | XMS_ITS ---
Author Organization [facility] Address [address] [place] [address] Care Team Providers Care Yard Coordinator Name Role Phone AndrewanandalidiaAlfredoAlea Primary Care Provider Keira Hamilton Unavailable [phone] REASON FOR VISIT 4 week F/U Medications Medication SIG (Take, Route, Frequency, Duration) Notes Start Date End Date Status Naltrexone HCl 50 MG 0.5 tablet Orally Once 02/08/2024 Not-Taking Vivitrol 380 MG as directed Intramuscular every 28 days 02/08/2024 Not-Taking Losartan Potassium 100 mg TAKE 1 TABLET BY MOUTH DAILY; Duration: 28 Active Pantoprazole Sodium 40 mg TAKE 1 TABLET BY MOUTH DAILY; Duration: 28 Not-Taking Fluticasone Propionate 50 MCG/ACT 1 spray in each nostril Nasally Once a day Not-Taking Vitamin D (Ergocalciferol) 1.25 MG (55979 UT) TAKE 1 CAPSULE BY MOUTH EVERY WEEK; Duration: 28 days Not-Taking Melatonin 5 mg TAKE 1 TABLET BY MOUTH EVERY EVENING; Duration: 28 Not-Taking risperiDONE 1 MG 1 tablet once daily Orally; Duration: 30 days Not-Taking hydrOXYzine HCl 50 MG 1-2 tablet Orally once daily at bedtime as needed for sleep; Duration: 30 days Not-Taking lamoTRIgine 100 mg TAKE 1 TABLET BY MOUTH EVERY NIGHT AT BEDTIME; Duration: 28 Not-Taking Acetaminophen Extra Strength 500 mg TAKE 1 TABLET BY MOUTH EVERY SIX HOURS; Duration: 28 days Active predniSONE 10 MG 1 tablet Orally Once a day; Duration: 5 days 12/06/2024 Active Diclofenac Potassium 50 MG 1 tablet with food or milk as needed Orally 3 times a day 12/06/2024 Active Loratadine 10 mg TAKE 1 TABLET BY MOUTH DAILY; Duration: 28 days Not-Taking amLODIPine Besylate 10 mg TAKE 1 TABLET BY MOUTH DAILY; Duration: 28 days Active buPROPion HCl ER (XL) 300 MG 1 tablet in the morning Orally Once a day; Duration: 30 days Please provide pill packs for patient. Patient may require prescriptions to be mailed to her. Active tiZANidine HCl 4 mg TAKE 1 TABLET BY MOUTH UP TO THREE TIMES A DAY; Duration: 28 days Active Folic Acid 1 mg TAKE 1 TABLET BY MOUTH DAILY; Duration: 28 Active Tab-A-Jeremias - TAKE 1 TABLET BY MOUTH DAILY; Duration: 28 Active Vitamin B-12 500 MCG TAKE 1 TABLET BY MOUTH DAILY; Duration: 28 Active hydrOXYzine HCl 50 MG 1-2 tablet Orally once daily at bedtime as needed for sleep; Duration: 30 days Please provide pill packs for patient. Patient may require prescriptions to be mailed to her. Active lamoTRIgine 100 MG 1 tablet Orally Once a day; Duration: 30 days Please provide pill packs for patient. Patient may require prescriptions to be mailed to her. Active risperiDONE 0.5 MG 1 tablet once nightly Orally; Duration: 30 days Please provide pill packs for patient. Patient may require prescriptions to be mailed to her. Active Naltrexone HCl 50 MG 1 tablet Orally Once a day; Duration: 30 days Please provide pill packs for patient. Patient may require prescriptions to be mailed to her. Active Gabapentin 100 MG 1 capsule Orally at bedtime; Duration: 30 days Please provide pill packs for patient. Patient may require prescriptions to be mailed to her. Active Strattera 40 MG 1 capsule in the morning Orally Once a day; Duration: 30 days Please provide pill packs for patient. Patient may require prescriptions to be mailed to her. Active Cymbalta 30 MG 1 capsule once daily Orally; Duration: 30 days Please provide pill packs for patient. Patient may require prescriptions to be mailed to her. Active traZODone HCl 150 MG 1 tablet at bedtime Orally Once a day; Duration: 30 days Please provide pill packs for patient. Patient may require prescriptions to be mailed to her. Active Wellbutrin XL 150 MG 1 tablet in the morning Orally Once a day; Duration: 30 days Please provide pill packs for patient. Patient may require prescriptions to be mailed to her. Active cloNIDine HCl 0.1 MG 1 tablet in the morning and 1 tablet in the evening Orally; Duration: 30 days Please provide pill packs for patient. Patient may require prescriptions to be mailed to her. Active Social History Sex Assigned At : Social History Observation Description Sex Assigned At Female Encounters Encounter Location Date Provider Diagnosis [address] [place] [address] 01/25/2025 Keira Hamilton Plan Of Treatment No Information Progress Notes * Roge CORRALESineDOB:1970 (54 yo F)Acc No.[id number]:01/25/2025 UNLOCKED PROGRESS NOTE Patient: Syd RUIZ Provider: NATALIYA Loja :1970 A ge:54 Y S ex:Female Date:01/25/2025 Address:[address] [place], [place] [id number] Pcp:Alea Choe Subjective: * Chief Complaints: * 1 . 4 week F/U. * HPI: D epression Screening: PHQ-9 L ittle interest or pleasure in doing things N early every day, F eeling down, depressed, or hopeless M ore than half the days, T rouble falling or staying asleep, or sleeping too much N early every day, F eeling tired or having little energy N early every day, P oor appetite or overeating N early every day, F eeling bad about yourself or that you are a failure, or have let yourself or your family down N ot at all, T rouble concentrating on things, such as reading the newspaper or watching television?Nearly every day, M oving or speaking so slowly that other people could have noticed; or the opposite, being so fidgety or restless that you have been moving around a lot more than usual?Several days, T houghts that you would be better off or of hurting yourself in some way Not at all, T otal Score 1 8, I nterpretation M oderately Severe Depression.?Intervention D epression Screening Findings P ositive, F ollow-Up for Depression N o Referral necessary, patient involved in behavioral health treatment .. S creening: [place] Suicide Severity Rating Scale (LF) D o you want to initiate with S creener form, 1 . Wish to be : Have you wished you were or wished you could go to sleep and not wake up? N o, 2 . Suicidal Thoughts: Have you actually had any thoughts of killing yourself? N o, 6 . Suicide Behavior Question: Have you ever done anything,started to do anything, or prepared to end your life? N o, I nterpretation: L ow Risk. * Medical History: * Medications: T aking Strattera 40 MG Capsule 1 capsule in the morning Orally Once a day , Notes to Pharmacist: Please provide pill packs for patient. Patient may require prescriptions to be mailed to her., Taking Cymbalta 30 MG Capsule Delayed Release Particles 1 capsule once daily Orally , Notes to Pharmacist: Please provide pill packs for patient. Patient may require prescriptions to be mailed to her., Taking traZODone HCl 150 MG Tablet 1 tablet at bedtime Orally Once a day , Notes to Pharmacist: Please provide pill packs for patient. Patient may require prescriptions to be mailed to her., Taking Wellbutrin XL 150 MG Tablet Extended Release 24 Hour 1 tablet in the morning Orally Once a day , Notes to Pharmacist: Please provide pill packs for patient. Patient may require prescriptions to be mailed to her., Taking cloNIDine HCl 0.1 MG Tablet 1 tablet in the morning and 1 tablet in the evening Orally , Notes to Pharmacist: Please provide pill packs for patient. Patient may require prescriptions to be mailed to her., Taking hydrOXYzine HCl 50 MG Tablet 1-2 tablet Orally once daily at bedtime as needed for sleep , Notes to Pharmacist: Please provide pill packs for patient. Patient may require prescriptions to be mailed to her., Taking lamoTRIgine 100 MG Tablet 1 tablet Orally Once a day , Notes to Pharmacist: Please provide pill packs for patient. Patient may require prescriptions to be mailed to her., Taking risperiDONE 0.5 MG Tablet 1 tablet once nightly Orally , Notes to Pharmacist: Please provide pill packs for patient. Patient may require prescriptions to be mailed to her., Taking Naltrexone HCl 50 MG Tablet 1 tablet Orally Once a day , Notes to Pharmacist: Please provide pill packs for patient. Patient may require prescriptions to be mailed to her., Taking Gabapentin 100 MG Capsule 1 capsule Orally at bedtime , Notes to Pharmacist: Please provide pill packs for patient. Patient may require prescriptions to be mailed to her., Taking buPROPion HCl ER (XL) 300 MG Tablet Extended Release 24 Hour 1 tablet in the morning Orally Once a day , Notes to Pharmacist: Please provide pill packs for patient. Patient may require prescriptions to be mailed to her., Taking tiZANidine HCl 4 mg Tablet TAKE 1 TABLET BY MOUTH UP TO THREE TIMES A DAY , Taking Folic Acid 1 mg Tablet TAKE 1 TABLET BY MOUTH DAILY , Taking Tab-A-Jeremias - Tablet TAKE 1 TABLET BY MOUTH DAILY , Taking Vitamin B-12 500 MCG Tablet TAKE 1 TABLET BY MOUTH DAILY , Taking amLODIPine Besylate 10 mg Tablet TAKE 1 TABLET BY MOUTH DAILY , Taking Acetaminophen Extra Strength 500 mg Tablet TAKE 1 TABLET BY MOUTH EVERY SIX HOURS , Taking predniSONE 10 MG Tablet 1 tablet Orally Once a day , Taking Diclofenac Potassium 50 MG Tablet 1 tablet with food or milk as needed Orally 3 times a day , Taking Losartan Potassium 100 mg Tablet TAKE 1 TABLET BY MOUTH DAILY , Not-Taking Loratadine 10 mg Tablet TAKE 1 TABLET BY MOUTH DAILY , Not- Taking Vitamin D (Ergocalciferol) 1.25 MG (85169 UT) Capsule TAKE 1 CAPSULE BY MOUTH EVERY WEEK , Not-Taking Melatonin 5 mg Tablet TAKE 1 TABLET BY MOUTH EVERY EVENING , Not-Taking risperiDONE 1 MG Tablet 1 tablet once daily Orally , Not-Taking hydrOXYzine HCl 50 MG Tablet 1-2 tablet Orally once daily at bedtime as needed for sleep , Not-Taking lamoTRIgine 100 mg Tablet TAKE 1 TABLET BY MOUTH EVERY NIGHT AT BEDTIME , Not-Taking Pantoprazole Sodium 40 mg Tablet Delayed Release TAKE 1 TABLET BY MOUTH DAILY , Not-Taking Fluticasone Propionate 50 MCG/ACT Suspension 1 spray in each nostril Nasally Once a day , Not-Taking Naltrexone HCl 50 MG Tablet 0.5 tablet Orally Once , Not-Taking Vivitrol 380 MG Suspension Reconstituted as directed Intramuscular every 28 days Objective: * Vitals: Assessment: Plan: * Treatment: * * Electronic signature of Iris Hamilton on 04/10/2025 at 05:05 AM CDT Sign off status: Pending * Provider: NATALIYA Loja Date: 0 01/25/2025 Generated for Avril malave/Rex/eTransmitting on: 1 05:05 AM CDT History and Physical Notes * HPI (History of Present Illness) Category Sub-Category Detail Notes Category Not es Depression Screening PHQ-9 Little inte rest or pleasure in doing things: Nearly every day Feeling down, depressed, or hopeless: Mo re than half the days Trouble falling or staying asleep, or sl eeping too much: Nearly every day Feeling tired or having little energy: N early every day Poor appetite or overeating: Nearly ever y day Feeling bad about yourself o r that you are a failure, or have let yourself or your family down: Not at all Trouble concentrating on thi ngs, such as reading the newspaper or watching television: Nearly every day Moving or speaking so slowly that other people could have noticed; or the opposite, being so fidgety or restless that you have been moving around a lot more than usual: Several days Thoughts that you would be b kayla off or of hurting yourself in some way: Not at all Total Score: 18 Interpretation: Moderately Severe Depres jerrod Intervention Depression Screening Findings: P ositive Follow-Up for Depression: No Referral necessary, patient involved in behavioral health treatment . Screening [place] Suicide Sev erity Rating Scale (LF) Do you want to initiate with: Screener form 1. Wish to be : Have you wished you were or wished you could go to sleep and not wake up?: No 2. Suicidal Thoughts: Have you actually had any thoughts of killing yourself?: No 6. Suicide Behavior Question: Have you ever done anything,started to do anything, or prepared to end your life?: No Interpretation:: Low Risk
--- OUTSIDE RECORDS SUMMARY | 2025-04-02 04:00 | XMS_ITS ---
Author Organization [facility] Address [address] [place] [address] Care Team Providers Care [employer] T[employer] Repairer Name Role Phone Alea Choe Primary Care Provider [phone] Keira Hamilton [phone] REASON FOR VISIT 4 week F/U Social History Sex Assigned At : Social History Observation Description Sex Assigned At Female Encounters Encounter Location Date Provider Diagnosis [address] [address] 04/02/2025 Keira Hamilton Plan Of Treatment No Information Progress Notes * Roge CORRALESPratibhaOB:1970 (54 yo F)Acc No.[id number]:04/02/2025 UNLOCKED PROGRESS NOTE Patient: Lyudmila RUIZ Provider: NATALIYA Loja :1970 A ge:54 Y S ex:Female Date:04/02/2025 Address:[address], [address], [place], [place] Pcp:Alea Choe Subjective: * Chief Complaints: * 1 . 4 week F/U. * Medical History: Objective: * Vitals: Assessment: Plan: * Treatment: * * Electronic signature of Iris Hamilton on 04/10/2025 at 05:05 AM CDT Sign off status: Pending * Provider: NATALIYA Loja Date: 1 Generated for Avril malave/Rex/Stevan on: 1 05:05 AM CDT
--- OUTSIDE RECORDS SUMMARY | 2025-04-09 09:00 | XMS_ITS ---
Author Organization [facility] Address [address] [place] [address] Care Team Providers Care Market Research Intern Name Role Phone ДмитрийAlfredoAlea Primary Care Provider Keira Hamilton Unavailable [phone] Allergies Allergen (clinical drug ingredient) Drug/Non Drug Allergy documented on EMR Reaction Allergy Type Onset Date Status Biaxin Unknown Drug Allergy Active REASON FOR VISIT missed last appt-last seen 12/27/24- 4 week f u Medications Medication SIG (Take, Route, Frequency, Duration) Notes Start Date End Date Status Vivitrol 380 MG as directed Intramuscular every 28 days; Duration: 28 days 02/27/2025 Active Cymbalta 30 MG 1 capsule Orally daily; Duration: 30 days Please provide pill packs [...] prescriptions to be mailed to her. Active Diclofenac Potassium 50 mg TAKE 1 TABLET BY MOUTH THREE TIMES A DAY WITH FOOD OR MILK NEEDED; Duration: 10 Active amLODIPine Besylate 10 mg TAKE 1 TABLET BY MOUTH DAILY; Duration: 28 days Active ARIPiprazole 5 MG 1 tablet Orally Once a day; Duration: 30 day(s) 02/21/2025 Active Losartan Potassium 100 mg TAKE 1 TABLET BY MOUTH DAILY; Duration: 28 Active Gabapentin 100 MG 2 capsule Orally twice a day; Duration: 30 days Please provide pill packs for patient. Patient may require prescriptions to be mailed to her. Active Folic Acid 1 mg TAKE 1 TABLET BY MOUTH DAILY; Duration: 28 Active Acetaminophen Extra Strength 500 mg TAKE 1 TABLET BY MOUTH EVERY SIX HOURS; Duration: 28 days Active Vitamin B-12 500 MCG TAKE 1 TABLET BY MOUTH DAILY; Duration: 28 Active Tab-A-Jeremias - TAKE 1 TABLET BY MOUTH DAILY; Duration: 28 Active tiZANidine HCl 4 mg TAKE 1 TABLET BY MOUTH UP TO THREE TIMES A DAY; Duration: 28 days Active risperiDONE 0.5 MG 1 tablet once nightly Orally; Duration: 30 days Please provide pill packs for patient. Patient may require prescriptions to be mailed to her. Active lamoTRIgine 100 MG 1 tablet Orally Once a day; Duration: 30 days Please provide pill packs for patient. Patient may require prescriptions to be mailed to her. Active Ondansetron HCl 4 MG 1 tablet Orally 3 times a day; Duration: 7 days As needed 02/27/2025 Active Naltrexone HCl 50 MG 1 tablet Orally Once a day; Duration: 30 days Please provide pill packs for patient. Patient may require prescriptions to be mailed to her. Active buPROPion HCl ER (XL) 300 MG 1 tablet in the morning Orally Once a day; Duration: 30 days Please provide pill packs for patient. Patient may require prescriptions to be mailed to her. Active hydrOXYzine HCl 50 MG 1-2 tablet [...] be mailed to her. Active Social History Tobacco Use: Social History Observation Description Date Details (start date - stop date) Light tobacco s moker NA - NA Sex Assigned At : Social History Observation Description Sex Assigned At Female Alcohol Screen (Audit-C) Question Answer Notes Did you have a drink containing alcohol in the p ast year? Yes Points 0 Interpretation Negative PRAPARE Question Answer Notes Date Completed/Updated: 08/16/2024 What is your current housing situation? I have housing [place] Are you worried about losing your housing? No What is the highest level of school that you have finished? More than high school What is your current work situation? Unemployed and seeking work In the past year, have you o r any family members you live with been unable to get any of the following when it was really needed? Check all that apply Phone Has lack of transportation k ept you from medical appointments, meetings, work or from getting things needed for daily living? No How often do you see or talk to people that you care about and feel close to? (For example: talking to friends on the phone, visiting friends or family, going to quaker or club meetings) More than 5 times a week How stressed are you? Stress is when someone feels tense, nervous, anxious, or can\t sleep at night because their mind is troubled Somewhat In the past year have you sp ent more than 2 nights in a row in a long term, halfway, half-way center, or juvenile correctional facility? No Do you feel physically and emotionally safe where you currently live? Unsure In the past year, have you b een afraid of your partner or ex-partner? I have not had a partner in the past year PRAPARE Score: 5 Tobacco Control (Standard) Question Answer Notes Additional Findings: Tobacco user Pipe smoker Tobacco use: Light tobacco smoker How often do you smoke cigarettes? Every day How many cigarettes a day do you smoke? 6-10 How soon after you wake up d o you smoke your first cigarette? 6-30 minutes Are you interested in quitting? 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 Vital Signs Weight 136lb 6oz lbs 04/09/2025 Height 66in in 04/09/2025 BMI 22.01 kg/m2 04/09/2025 Blood pressure systolic 110 mm Hg 04/09/20 25 Blood pressure diastolic 78 mm Hg 025 Heart Rate 96 /min 04/09/2025 Oximetry 98 % 04/09/2025 Temperature 98.1 degrees Fahrenheit 04/09/20 25 Respiratory Rate 16 /min 04/09/2025 Encounters Encounter Location Date Provider Diagnosis [facility] [address] [place] [address] 04/09/2025 Keira Hamilton PTSD (post-traumatic stress disorder) F43.10 ; Bipolar 1 disorder F31.9 ; Impaired concentration R41.840 ; Methamphetamine use F15.10 ; Alcohol abuse F10.10 ; Nicotine dependence, unspecified, uncomplicated F17.200 and Restless leg syndrome G25.81 Assessments Encounter Date Diagnosis (ICD Code) Assessment Notes Treatment Notes Treatment Clinical Notes Section Notes 04/09/2025 PTSD (post-traumatic stress disorder) (ICD-10 - F43.10) See assessment and plan for bipolar I disorder 04/09/2025 Bipolar 1 disorder (ICD-10 - F31.9) Duration (acute/chronic), stability (controlled/uncont rolled): Chronic, uncontrolled, patient not reportedly taking medications consistently or as prescribed, see HPI Current medications/effica cy: Somewhat, room for improvement Previous medication trials: Winfall, Prozac, Effexor, Trazodone Seroquel, Xanax, Wellbutrin, Zoloft, clonidine, Abilify (dizziness) Current/previous therapies: Follows up with therapy multiple times weekly Examination as documented - see pertinent aspects of office visit documentation. Pertinent diagnostics: UNABLE to assess during appointment today due to patient's emotional state and very pressured speech with notable circumstantiality, tangentiality and some loose associations (see above) Differential diagnoses: RECOMMENDATIONS: Consume well balanced diet, preferably low in saturated fats (solid at room temperature, such as butter, margarine, Crisco, etc) and low in sodium (<2,000mg per day). Consume plenty of fruits/vegetables, healthy grains/whole grains, unsaturated/health y fats (liquid at room temperature, such as olive oil, sunflower seed oil, canola, vegetable, etc.). Exercise regularly - Develop an exercise routine. 30 minutes of moderate exercise (walking at a brisk pace) 5 times per week is recommended. You should work hard enough to cause a sweat but still be able to talk with others while exercising. Exercise improves overall health - improves blood pressure and blood sugar, helps control weight, reduces stress, and improves mood. Practice stress reduction techniques, such as guided imagery, journaling, aromatherapy, acupuncture/acupre ssure, deep breathing, etc. Practice healthy sleep hygiene - maintain regular routine, no caffeine after 1PM, no exercise 1-2 hours prior to bedtime, keep bedroom dark and cool, no TV or electronics while in bed. Consider melatonin as needed. Consider cognitive behavioral therapy for insomnia (CBT-I). Consider/Continue therapy. Consider/Continue substance cessation therapy as needed - contact office if desiring medication assisted therapy. Manage co-morbid conditions. Continue monitoring symptoms - report persistent or worsening/concerni ng symptoms to the office or go to the ER. For mental health CRISIS, please reach out to [phone] ([employer] Suicide and Crisis Lifeline), 911, go to the emergency department, or contact the [facility] Crisis Unit/Team. Follow up as scheduled in 4 weeks or sooner if necessary. Follow up with PCP and/or other specialists as advised. NEXT STEP: Consider medication adjustments as needed. 04/09/2025 Impaired concentration (ICD-10 - R41.840) Duration (acute/chronic), stability (controlled/uncont rolled): Chronic, uncontrolled, patient not taking medications consistently or as prescribed, see HPI Current medications/effica cy: No Previous medication trials: Effexor, Wellbutrin, clonidine, Strattera Current/previous therapies: Follows up with therapy multiple times weekly Examination as documented - see pertinent aspects of office visit documentation. Pertinent diagnostics: UNABLE to assess during appointment today due to patient's emotional state and very pressured speech with notable circumstantiality, tangentiality and some loose associations (see above) Differential diagnoses: suspect likely related to uncontrolled bipolar I disorder, as well as continued methamphetamine use Provider and patient had long conversation about the need to take medications as prescribed consistently to help with mood - a period of weeks is required before being able to note how a medication regimen will affect a person's mood Provider also explained that doses are divided throughout the day often to minize side effects, such as sedation - yet another reason to take medications consistently as prescribed/discuss ed RECOMMENDATIONS: RESTART/modify other medications as prescribed - educated patient/guardian on adverse effects, risks and benefits, as well as alternative treatments Consume well balanced diet, preferably low in saturated fats (solid at room temperature, such as butter, margarine, Crisco, etc) and low in sodium (<2,000mg per day). Consume plenty of fruits/vegetables, healthy grains/whole grains, unsaturated/health y fats (liquid at room temperature, such as olive oil, sunflower seed oil, canola, vegetable, etc.). Exercise regularly - Develop an exercise routine. 30 minutes of moderate exercise (walking at a brisk pace) 5 times per week is recommended. You should work hard enough to cause a sweat but still be able to talk with others while exercising. Exercise improves overall health - improves blood pressure and blood sugar, helps control weight, reduces stress, and improves mood. Practice stress reduction techniques, such as guided imagery, journaling, aromatherapy, acupuncture/acupre ssure, deep breathing, etc. Practice healthy sleep hygiene - maintain regular routine, no caffeine after 1PM, no exercise 1-2 hours prior to bedtime, keep bedroom dark and cool, no TV or electronics while in bed. Consider melatonin as needed. Consider cognitive behavioral therapy for insomnia (CBT-I). Consider/Continue therapy. Consider/Continue substance cessation therapy as needed - contact office if desiring medication assisted therapy. Manage co-morbid conditions. Continue monitoring symptoms - report persistent or worsening/concerni ng symptoms to the office or go to the ER. For mental health CRISIS, please reach out to [phone] (National Suicide and Crisis Lifeline), 911, go to the emergency department, or contact the [facility] Crisis Unit/Team. Follow up as scheduled in 4 weeks or sooner if necessary. Follow up with PCP and/or other specialists as advised. NEXT STEP: Consider increasing nighttime dose of clonidine pending response/tolerabil ity. Consider further improvement of bipolar disorder management. 04/09/2025 Methamphetamine use (ICD-10 - F15.10) Duration (acute/chronic), stability (controlled/uncont rolled): Chronic, methamphetamine, has been using regularly for last few years, stopped in 07/2023 after loss of boyfriend, recent relapse reported during appointment, see HPI Current medications/effica cy: N/A Previous medication trials: N/A Current/previous therapies: Reportedly follows up with therapy multiple times weekly Examination as documented - see pertinent aspects of office visit documentation. Pertinent diagnostics: UNABLE to assess during appointment today due to patient's emotional state and very pressured speech with notable circumstantiality, tangentiality and some loose associations (see above) Differential diagnoses: Provider and patient had long conversation about the need to take medications as prescribed consistently to help with mood - a period of weeks is required before being able to note how a medication regimen will affect a person's mood Provider also explained that doses are divided throughout the day often to minize side effects, such as sedation - yet another reason to take medications consistently as prescribed/discuss ed RECOMMENDATIONS: RESTART/modify medications as prescribed - educated patient/guardian on adverse effects, risks and benefits, as well as alternative treatments Consume well balanced diet, preferably low in saturated fats (solid at room temperature, such as butter, margarine, Crisco, etc) and low in sodium (<2,000mg per day). Consume plenty of fruits/vegetables, healthy grains/whole grains, unsaturated/health y fats (liquid at room temperature, such as olive oil, sunflower seed oil, canola, vegetable, etc.). Exercise regularly - Develop an exercise routine. 30 minutes of moderate exercise (walking at a brisk pace) 5 times per week is recommended. You should work hard enough to cause a sweat but still be able to talk with others while exercising. Exercise improves overall health - improves blood pressure and blood sugar, helps control weight, reduces stress, and improves mood. Practice stress reduction techniques, such as guided imagery, journaling, aromatherapy, acupuncture/acupre ssure, deep breathing, etc. Practice healthy sleep hygiene - maintain regular routine, no caffeine after 1PM, no exercise 1-2 hours prior to bedtime, keep bedroom dark and cool, no TV or electronics while in bed. Consider melatonin as needed. Consider cognitive behavioral therapy for insomnia (CBT-I). Consider/Continue therapy. Continue substance cessation therapy as prescribed by MAT provider - call and schedule follow up with MAT clinic as discussed Manage co-morbid conditions. Continue monitoring symptoms - report persistent or worsening/concerni ng symptoms to the office or go to the ER. For mental health CRISIS, please reach out to [phone] (National Suicide and Crisis Lifeline), 911, go to the emergency department, or contact the [facility] Crisis Unit/Team. Follow up as scheduled or sooner if necessary. Follow up with PCP and/or other specialists as advised. NEXT STEP: Consider medication adjustments as needed. 04/09/2025 Alcohol abuse (ICD-10 - F10.10) Duration (acute/chronic), stability (controlled/uncont rolled): Chronic, Previously consumed heavily, daily, stopped usually heavily regularly about 3 years ago - reports continued intermittent heavy use Current medications/effica cy: N/A Previous medication trials: Naltrexone Current/previous therapies: Follows up with therapy multiple times weekly Examination as documented - see pertinent aspects of office visit documentation. Pertinent diagnostics: UNABLE to assess during appointment today due to patient's emotional state and very pressured speech with notable circumstantiality, tangentiality and some loose associations (see above) Differential diagnoses: Provider and patient had long conversation about the need to take medications as prescribed consistently to help with mood - a period of weeks is required before being able to note how a medication regimen will affect a person's mood Provider also explained that doses are divided throughout the day often to minize side effects, such as sedation - yet another reason to take medications consistently as prescribed/discuss ed RECOMMENDATIONS: RESTART/modify medications as prescribed - educated patient/guardian on adverse effects, risks and benefits, as well as alternative treatments Consume well balanced diet, preferably low in saturated fats (solid at room temperature, such as butter, margarine, Crisco, etc) and low in sodium (<2,000mg per day). Consume plenty of fruits/vegetables, healthy grains/whole grains, unsaturated/health y fats (liquid at room temperature, such as olive oil, sunflower seed oil, canola, vegetable, etc.). Exercise regularly - Develop an exercise routine. 30 minutes of moderate exercise (walking at a brisk pace) 5 times per week is recommended. You should work hard enough to cause a sweat but still be able to talk with others while exercising. Exercise improves overall health - improves blood pressure and blood sugar, helps control weight, reduces stress, and improves mood. Practice stress reduction techniques, such as guided imagery, journaling, aromatherapy, acupuncture/acupre ssure, deep breathing, etc. Practice healthy sleep hygiene - maintain regular routine, no caffeine after 1PM, no exercise 1-2 hours prior to bedtime, keep bedroom dark and cool, no TV or electronics while in bed. Consider melatonin as needed. Consider cognitive behavioral therapy for insomnia (CBT-I). Consider/Continue therapy. Continue substance cessation therapy as prescribed by MAT provider - call and schedule follow up with MAT clinic as discussed. Manage co-morbid conditions. Continue monitoring symptoms - report persistent or worsening/concerni ng symptoms to the office or go to the ER. For mental health CRISIS, please reach out to [phone] (National Suicide and Crisis Lifeline), 911, go to the emergency department, or contact the [facility] Crisis Unit/Team. Follow up as scheduled or sooner if necessary. Follow up with PCP and/or other specialists as advised. NEXT STEP: Consider medication adjustments as needed. 04/09/2025 Nicotine dependence, unspecified, uncomplicated (ICD-10 - F17.200) Duration (acute/chronic), stability (controlled/uncont rolled): Chronic, sometimes will smoke cigar Current medications/effica cy: N/A Previous medication trials: N/A Current/previous therapies: Follows up with therapy multiple times weekly Examination as documented - see pertinent aspects of office visit documentation. Pertinent diagnostics: UNABLE to assess during appointment today due to patient's emotional state and very pressured speech with notable circumstantiality, tangentiality and some loose associations (see above) Differential diagnoses: Provider and patient had long conversation about the need to take medications as prescribed consistently to help with mood - a period of weeks is required before being able to note how a medication regimen will affect a person's mood Provider also explained that doses are divided throughout the day often to minize side effects, such as sedation - yet another reason to take medications consistently as prescribed/discuss ed RECOMMENDATIONS: Consider substance cessation therapy as needed - contact office if desiring medication assisted therapy. Manage co-morbid conditions. Continue monitoring symptoms - report persistent or worsening/concerni ng symptoms to the office or go to the ER. For mental health CRISIS, please reach out to [phone] (National Suicide and Crisis Lifeline), 911, go to the emergency department, or contact the [facility] Crisis Unit/Team. Follow up as scheduled or sooner if necessary. Follow up with PCP and/or other specialists as advised. NEXT STEP: Consider MAT as needed. 04/09/2025 Restless leg syndrome (ICD-10 - G25.81) Plan Of Treatment Medication Medication Name Sig Start Date Stop Date Notes Cymbalta 30 MG 1 capsule Orally daily; Duration: 30 days Please provide pill packs for patient. Patient may require prescriptions to be mailed to her. Strattera 40 MG 1 capsule in the morning Orally Once a day; Duration: 30 days Please provide pill packs for patient. Patient may require prescriptions to be mailed to her. Wellbutrin XL 150 MG 1 tablet in the morning Orally Once a day; Duration: 30 days Please provide pill packs for patient. Patient may require prescriptions to be mailed to her. traZODone HCl 150 MG 1 tablet at bedtime Orally Once a day; Duration: 30 days Please provide pill packs for patient. Patient may require prescriptions to be mailed to her. risperiDONE 0.5 MG 1 tablet once nightly Orally; Duration: 30 days Please provide pill packs for patient. Patient may require prescriptions to be mailed to her. lamoTRIgine 100 MG 1 tablet Orally Once a day; Duration: 30 days Please provide pill packs for patient. Patient may require prescriptions to be mailed to her. Naltrexone HCl 50 MG 1 tablet Orally Once a day; Duration: 30 days Please provide pill packs for patient. Patient may require prescriptions to be mailed to her. buPROPion HCl ER (XL) 300 MG 1 tablet in the morning Orally Once a day; Duration: 30 days Please provide pill packs for patient. Patient may require prescriptions to be mailed to her. hydrOXYzine HCl 50 MG 1-2 tablet Orally once daily at bedtime as needed for sleep; Duration: 30 days Please provide pill packs for patient. Patient may require prescriptions to be mailed to her. cloNIDine HCl 0.1 MG 1 tablet in the morning and 1 tablet in the evening Orally; Duration: 30 days Please provide pill packs for patient. Patient may require prescriptions to be mailed to her. Treatment Notes Assessment Notes PTSD (post-traumatic stress disorder) Se e assessment and plan for bipolar I disorder Bipolar 1 disorder Duration (acute/chronic), stability (controlled/uncontrolled): Chronic, uncontrolled, patient not reportedly taking medications consistently or as prescribed, see HPI Current medications/efficacy: Somewhat, room for improvement Previous medication trials: Winfall, Prozac, Effexor, Trazodone Seroquel, Xanax, Wellbutrin, Zoloft, clonidine, Abilify (dizziness) Current/previous therapies: Follows up with therapy multiple times weekly Examination as documented - see pertinent aspects of office visit documentation. Pertinent diagnostics: UNABLE to assess during appointment today due to patient's emotional state and very pressured speech with notable circumstantiality, tangentiality and some loose associations (see above) Differential diagnoses: RECOMMENDATIONS: Consume well balanced diet, preferably low in saturated fats (solid at room temperature, such as butter, margarine, Crisco, etc) and low in sodium (<2,000mg per day). Consume plenty of fruits/vegetables, healthy grains/whole grains, unsaturated/healthy fats (liquid at room temperature, such as olive oil, sunflower seed oil, canola, vegetable, etc.). Exercise regularly - Develop an exercise routine. 30 minutes of moderate exercise (walking at a brisk pace) 5 times per week is recommended. You should work hard enough to cause a sweat but still be able to talk with others while exercising. Exercise improves overall health - improves blood pressure and blood sugar, helps control weight, reduces stress, and improves mood. Practice stress reduction techniques, such as guided imagery, journaling, aromatherapy, acupuncture/acupressure, deep breathing, etc. Practice healthy sleep hygiene - maintain regular routine, no caffeine after 1PM, no exercise 1-2 hours prior to bedtime, keep bedroom dark and cool, no TV or electronics while in bed. Consider melatonin as needed. Consider cognitive behavioral therapy for insomnia (CBT-I). Consider/Continue therapy. Consider/Continue substance cessation therapy as needed - contact office if desiring medication assisted therapy. Manage co-morbid conditions. Continue monitoring symptoms - report persistent or worsening/concerning symptoms to the office or go to the ER. For mental health CRISIS, please reach out to [phone] (National Suicide and Crisis Lifeline), 911, go to the emergency department, or contact the [facility] Crisis Unit/Team. Follow up as scheduled in 4 weeks or sooner if necessary. Follow up with PCP and/or other specialists as advised. NEXT STEP: Consider medication adjustments as needed. Impaired concentration Duration (acute/chronic), stability (controlled/uncontrolled): Chronic, uncontrolled, patient not taking medications consistently or as prescribed, see HPI Current medications/efficacy: No Previous medication trials: Effexor, Wellbutrin, clonidine, Strattera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 assisted therapy. Manage co-morbid conditions. Continue monitoring symptoms - report persistent or worsening/concerning symptoms to the office or go to the ER. For mental health CRISIS, please reach out to [phone] (National Suicide and Crisis Lifeline), 911, go to the emergency department, or contact the [facility] Crisis Unit/Team. Follow up as scheduled in 4 weeks or sooner if necessary. Follow up with PCP and/or other specialists as advised. NEXT STEP: Consider increasing nighttime dose of clonidine pending response/tolerability. Consider further improvement of bipolar disorder management. 4. M ethamphetamine use Continue Naltrexone HCl Tablet, 50 MG, 1 tablet, Orally, Once a day, 30 days, 30, Refills 0, Notes to Pharmacist: Please provide pill packs for patient. Patient may require prescriptions to be mailed to her.. Notes: Duration (acute/chronic), stability (controlled/uncontrolled): Chronic, methamphetamine, has been using regularly for last few years, stopped in 07/2023 after loss of boyfriend, recent relapse reported during appointment, see HPI Current medications/efficacy: N/A Previous medication trials: N/A Current/previous therapies: Reportedly follows up with therapy multiple times weekly Examination as documented - see pertinent aspects of office visit documentation. Pertinent diagnostics: UNABLE to assess during appointment today due to patient's emotional state and very pressured speech with notable circumstantiality, tangentiality and some loose associations (see above) Differential diagnoses: Provider and patient had long conversation about the need to take medications as prescribed consistently to help with mood - a period of weeks is required before being able to note how a medication regimen will affect a person's mood Provider also explained that doses are divided throughout the day often to minize side effects, such as sedation - yet another reason to take medications consistently as prescribed/discussed RECOMMENDATIONS: RESTART/modify medications as prescribed - educated patient/guardian on adverse effects, risks and benefits, as well as alternative treatments Consume well balanced diet, preferably low in saturated fats (solid at room temperature, such as butter, margarine, Crisco, etc) and low in sodium (<2,000mg per day). Consume plenty of fruits/vegetables, healthy grains/whole grains, unsaturated/healthy fats (liquid at room temperature, such as olive oil, sunflower seed oil, canola, vegetable, etc.). Exercise regularly - Develop an exercise routine. 30 minutes of moderate exercise (walking at a brisk pace) 5 times per week is recommended. You should work hard enough to cause a sweat but still be able to talk with others while exercising. Exercise improves overall health - improves blood pressure and blood sugar, helps control weight, reduces stress, and improves mood. Practice stress reduction techniques, such as guided imagery, journaling, aromatherapy, acupuncture/acupressure, deep breathing, etc. Practice healthy sleep hygiene - maintain regular routine, no caffeine after 1PM, no exercise 1-2 hours prior to bedtime, keep bedroom dark and cool, no TV or electronics while in bed. Consider melatonin as needed. Consider cognitive behavioral therapy for insomnia (CBT-I). Consider/Continue therapy. Continue substance cessation therapy as prescribed by MAT provider - call and schedule follow up with MAT clinic as discussed Manage co-morbid conditions. Continue monitoring symptoms - report persistent or worsening/concerning symptoms to the office or go to the ER. For mental health CRISIS, please reach out to [phone] ([employer] Suicide and Crisis Lifeline), 911, go to the emergency department, or contact the [facility] Crisis Unit/Team. Follow up as scheduled or sooner if necessary. Follow up with PCP and/or other specialists as advised. NEXT STEP: Consider medication adjustments as needed. 5. A lcohol abuse Notes: Duration (acute/chronic), stability (controlled/uncontrolled): Chronic, Previously consumed heavily, daily, stopped usually heavily regularly about 3 years ago - reports continued intermittent heavy use Current medications/efficacy: N/A Previous medication trials: Naltrexone Current/previous therapies: Follows up with therapy multiple times weekly Examination as documented - see pertinent aspects of office visit documentation. Pertinent diagnostics: UNABLE to assess during appointment today due to patient's emotional state and very pressured speech with notable circumstantiality, tangentiality and some loose associations (see above) Differential diagnoses: Provider and patient had long conversation about the need to take medications as prescribed consistently to help with mood - a period of weeks is required before being able to note how a medication regimen will affect a person's mood Provider also explained that doses are divided throughout the day often to minize side effects, such as sedation - yet another reason to take medications consistently as prescribed/discussed RECOMMENDATIONS: RESTART/modify medications as prescribed - educated patient/guardian on adverse effects, risks and benefits, as well as alternative treatments Consume well balanced diet, preferably low in saturated fats (solid at room temperature, such as butter, margarine, Crisco, etc) and low in sodium (<2,000mg per day). Consume plenty of fruits/vegetables, healthy grains/whole grains, unsaturated/healthy fats (liquid at room temperature, such as olive oil, sunflower seed oil, canola, vegetable, etc.). Exercise regularly - Develop an exercise routine. 30 minutes of moderate exercise (walking at a brisk pace) 5 times per week is recommended. You should work hard enough to cause a sweat but still be able to talk with others while exercising. Exercise improves overall health - improves blood pressure and blood sugar, helps control weight, reduces stress, and improves mood. Practice stress reduction techniques, such as guided imagery, journaling, aromatherapy, acupuncture/acupressure, deep breathing, etc. Practice healthy sleep hygiene - maintain regular routine, no caffeine after 1PM, no exercise 1-2 hours prior to bedtime, keep bedroom dark and cool, no TV or electronics while in bed. Consider melatonin as needed. Consider cognitive behavioral therapy for insomnia (CBT-I). Consider/Continue therapy. Continue substance cessation therapy as prescribed by MAT provider - call and schedule follow up with MAT clinic as discussed. Manage co-morbid conditions. Continue monitoring symptoms - report persistent or worsening/concerning symptoms to the office or go to the ER. For mental health CRISIS, please reach out to [phone] (National Suicide and Crisis Lifeline), 911, go to the emergency department, or contact the [facility] Crisis Unit/Team. Follow up as scheduled or sooner if necessary. Follow up with PCP and/or other specialists as advised. NEXT STEP: Consider medication adjustments as needed. 6. N icotine dependence, unspecified, uncomplicated Notes: Duration (acute/chronic), stability (controlled/uncontrolled): Chronic, sometimes will smoke cigar Current medications/efficacy: N/A Previous medication trials: N/A Current/previous therapies: Follows up with therapy multiple times weekly Examination as documented - see pertinent aspects of office visit documentation. Pertinent diagnostics: UNABLE to assess during appointment today due to patient's emotional state and very pressured speech with notable circumstantiality, tangentiality and some loose associations (see above) Differential diagnoses: Provider and patient had long conversation about the need to take medications as prescribed consistently to help with mood - a period of weeks is required before being able to note how a medication regimen will affect a person's mood Provider also explained that doses are divided throughout the day often to minize side effects, such as sedation - yet another reason to take medications consistently as prescribed/discussed RECOMMENDATIONS: Consider substance cessation therapy as needed - contact office if desiring medication assisted therapy. Manage co-morbid conditions. Continue monitoring symptoms - report persistent or worsening/concerning symptoms to the office or go to the ER. For mental health CRISIS, please reach out to [phone] (National Suicide and Crisis Lifeline), 911, go to the emergency department, or contact the [facility] Crisis Unit/Team. Follow up as scheduled or sooner if necessary. Follow up with PCP and/or other specialists as advised. NEXT STEP: Consider MAT as needed. * Recommended Wellness and Pre vention Guidelines: * S tatus A lert L ast Done N ext Due A ction Taken N ONCOMPLIANT B reast cancer screening 0 09/27/2024 1 - - N ONCOMPLIANT C ervical Cancer Screening - 1 - - N ONCOMPLIANT I nfluenza vaccine (over 50) 1 07/20/2023 1 - - * Procedure Codes: C HS07 Flu Vaccine Offered * Preventive Medicine: Counseling: S MOKING: P atient counselled on the dangers of tobacco use and urged to quit. 1 .. * Follow Up: 4 Weeks (Reason: f/u stop gabapentin and abilify) * * Sign off status: Completed true * Provider: Ashli Hamilton, REAL ESTATE CLERK-C Date: 1 Generated for Avril malave/Rex/eTgerrysmitting on: 05:05 AM CDT History and Physical Notes * HPI (History of Present Illness) Category Sub-Category Detail Notes Category Not es Interim History Was hospitalized No Emergency room visit Yes Depression Screening PHQ-9 Little inte rest or pleasure in doing things: Several days Feeling down, depressed, or hopeless: Se veral days Trouble falling or staying asleep, or sl eeping too much: Nearly every day Feeling tired or having little energy: M ore than half the days Poor appetite or overeating: Several day s Feeling bad about yourself o r that you are a failure, or have let yourself or your family down: Not at all Trouble concentrating on thi ngs, such as reading the newspaper or watching television: More than half the days Moving or speaking so slowly that other people could have noticed; or the opposite, being so fidgety or restless that you have been moving around a lot more than usual: Nearly every day Thoughts that you would be b kayla off or of hurting yourself in some way: Not at all Total Score: 13 Interpretation: Moderate Depression Intervention Depression Screening Findings: P ositive Follow-Up for Depression: No Referral necessary, patient involved in behavioral health treatment . Summary Syd marcial, a 54-year-old female, presented for follow up and has been better. Pain has been better controlled. She is having some mental fogginess. She has a lot of appointments coming up. Complaining of being tired but does over exert self. Sleep is fair, gets up at least 3x/week. Appetite good. Depression 4-5/10, anxiety 4/10. Taking time out to slow self down. She lives in [facility]. States she does smoke marijuana to help with pain. Speech is pressured. Screening [place] Suicide Severity Rating Scale (LF) Do you want to [...] end your life?: No Interpretation:: Low Risk Flu vaccine Flu vaccine offered Flu Vaccine Declined: . Preventative Health and Wellness follow-up Action Plans for Clinical Quality Measures: Breast Cancer Screening:: Discussed need for breast cancer screening. Patient declined. . Cervical Cancer Screening:: Discussed need for cervical cancer screening. Patient declined. CSSRS Interpretation and Follow Up Plan CSSRS Interpretation and Follow Up Plan CSSRS Screen documented using SF: Yes Risk Disposition from SF: Low - No Follo w Up Plan Required Follow Up Plan: No Follow Up Plan requir ed at this time. Timeframe of Screening: Today Examination Category Sub-Category Detail Notes Category Not es Mental Status Exam SENSORIUM AND COGNITION Alert , Oriented to Person, Oriented to Place, Oriented to Time, Oriented to Situation ATTENTION AND CONCENTRATION Impaired att ention/concentration APPEARANCE Unable to assess due to telephone visit ATTITUDE AND BEHAVIOR Cooperative MEMORY Grossly intact EYE CONTACT Unable to assess due to telephone visit AFFECT Unable to assess due to telephone visit - inferred to be anxious/dysthymic based on conversation MOOD inferred to be anxio us/dysthymic based on conversation SPEECH QUANTITY Verbose SPEECH QUALITY Pressured THOUGHT PROCESS Tangential, Circumst antial, Flight of ideas THOUGHT CONTENT Congruent with affec t MOTOR ACTIVITY Unable to assess due to telephone visit - patient denies abnormal movements/gait SUICIDAL IDEATION Denies suicidal idea tion HOMICIDAL IDEATION Denies homicidal lisbet ation HALLUCINATIONS Denies hallucination s INSIGHT Fair JUDGMENT Fair LANGUAGE Appropriate- WNL
--- NOTE | ~2025-04-10 | XR_ITS ---
EXAMINATION: XR shoulder RT min 2V, 04/10/2025 10:12 CDT HISTORY: Pain in rt shoulder/rt hip pain COMPARISON: No comparisons available. Findings: No acute fracture or malalignment. No significant degenerative changes. Soft tissues unremarkable. Impression: No acute fracture or malalignment. Reviewed, dictated and finalized at location P. Impression: No acute fracture or malalignment.
--- NOTE | ~2025-04-10 | XR_ITS ---
EXAMINATION: XR hip RT min 2V, 04/10/2025 10:12 CDT HISTORY: Pain in rt shoulder/rt hip pain COMPARISON: No comparisons available. Findings: No acute fracture or malalignment. No significant degenerative changes. Soft tissues unremarkable. Impression: No acute fracture or malalignment. Reviewed, dictated and finalized at location P. Impression: No acute fracture or malalignment.
--- OUTSIDE RECORDS SUMMARY | 2025-04-10 11:23 | XMS_ITS | Patient Health Record ---
Author Organization [facility] Address [address] [place] [address] Care Team Providers Care Parole Hearing Officer Name Role Phone Alfredo Choehanie Primary Care Provider [phone] Keira Hamilton Unavailable [phone] Eve De Unavailable [phone] Brown Rivera Unavailable [phone] Patrice Hanna Unavailable [phone] Ino Jensen Unavailable [phone] Allergies Allergen (clinical drug ingredient) Drug/Non Drug Allergy documented on EMR Reaction Allergy Type Onset Date Status Biaxin Unknown Drug Allergy Active Results Component Value Reference Range Notes 14 Panel Urine Drug Screen Reviewed date:02/27/2025 10:37:50 AM Interpretation: Performing Lab: Notes/Report: THC POS LYNDSEY neg MOP (OPI) neg AMP POS MET POS BAR neg BZO neg MDMA POS MTD neg OXY neg PCP neg BUP neg TCA neg FTY neg 14 Panel Urine Drug Screen Reviewed date:03/28/2025 08:56:31 AM Interpretation: Performing Lab: Notes/Report: THC POS LYNDSEY neg MOP (OPI) neg AMP POS MET POS BAR neg BZO neg MDMA neg MTD neg OXY neg PCP neg BUP neg TCA neg FTY neg Rheumatoid Arthritis Factor Reviewed date:12/13/2024 01:36:25 PM Interpretation: Performing Lab:[facility] [place], [address], [place], Phone - [phone], Director - Roopa Notes/Report: Rheumatoid Factor (RF) 10.1 <14.0 IU/mL Anti-CCP (Cyclic Citrullinat ed Peptide Antibodies, IgG and IgA, TALISHA Reviewed date:12/13/2024 01:36:25 PM Interpretation: Performing Lab:[facility] [place], [address], [place], Phone - [phone], Director - Roopa Notes/Report: Anti-CCP Ab, IgG/IgA 6 0-19 units Negative <20 Weak positive 20 - 39 Moderate positive 40 - 59 Strong positive >59 12 Panel Urine Drug Screen Reviewed date:04/21/2024 03:02:59 PM Interpretation: Performing Lab: Notes/Report: THC P LYNDSEY N MOP (OPI) N AMP P MET P BAR N BZO N MDMA N MTD N OXY N PCP N BUP N Reason For Referral Reason Bladder/urinary issu es, saw urology in past, unsure who. Diagnosis 1 Urinary incontinence , unspecified type (R32) Referral Organization [facility] Referring Provider First Name Patrice Referring Provider Last Name Jacques Referring Provider [facility] Referred Provider [facility] [place] Referred Provider Specialty Urology General Notes Alea Dahl RN 05/16/2024 02:18:02 PM >[facility]'s website indicates Dr. Steven Boothe accepts [place]; [place]'s [id number] tool also lists him as an in-network provider., Alea Dahl RN 05/16/2024 02:30:54 PM >referral faxed. confirmation pending., Alea Dahl RN 05/17/2024 08:29:12 AM >Fax failed. Attempting to resend., Alea Dahl RN 05/31/2024 10:26:05 AM >resend was successful. Letter also mailed to pt with referral details. Clinical Notes [facility] [place], [address] [place] [address], Building , [place] [address], , Referral Priority Routine Reason GULL WING DEFORMITY NOTED , PROXIMAL INTERPHALANGEAL JOINT SPACES OF SECOND, THIRD, FOURTH AND FIFTH DIGITS OF BILATERAL HANDS. Diagnosis 1 Osteoarthritis of small nd, unspecified laterality, unspecified osteoarthritis type (M19.049) Referral Organization [facility] Referring Provider First Name Alea Referring Provider Last Name Дмитрий Referring Provider [facility] chrissie Referred Provider [facility] Referred Provider Specialty Orthopedic S urgery General Notes Monica Reveles 12/13/2024 04:38:42 PM >verified with staff that patients insurance is accepted., Monica Reveles 12/13/2024 05:01:43 PM >letter mailed; patient notified via phone call(left VM); eMessage sent Clinical Notes [facility] Medical Group Or thopedic & Sports Medicine[address], [place]. [address], , Referral Priority Routine Reason hand xray: severe OA Diagnosis 1 Osteoarthritis of small nd, unspecified laterality, unspecified osteoarthritis type (M19.049) Referral Organization [facility] Referring Provider First Name Alea Referring Provider Last Name Дмитрий Referring Provider [facility] chrissie Referred Provider Leela Chahal Referred Provider Specialty Pain Medicin e General Notes Monica Reveles 12/26/2024 02:24:23 PM >pending verification of insurance acceptance, Monica Reveles 12/27/2024 09:31:10 AM >letter mailed; eMessage sent Clinical Notes [facility], [address]. [address], , Referral Priority Routine Reason Sharp, burning pain, numbness, tingling between toes or in the ball of the foot Diagnosis 1 Neuropathy involving both lower extremities (G57.93) Referral Organization [facility] Referring Provider First Name Alea Referring Provider Last Name Дмитрий Referring Provider [facility] chrissie Referred Provider [facility], Podiatry Referred Provider Specialty Podiatry General Notes Monica Reveles 02/08/2025 10:14:48 AM >Verified with staff, patient's insurance is accepted., Monica Reveles 02/08/2025 10:20:24 AM >letter mailed; eMesssage sent Clinical Notes [facility] Medical Group- P odiatry, [address], [place] [address], , Referral Priority Routine Reason Sees Dr. Bustillos, receives steroids shots chronic pain in multiple sites including hands and feet, with shooting pains and sensation of bones protruding. Unable to do ADL's successfully Diagnosis 1 Osteoarthritis of small nd, unspecified laterality, unspecified osteoarthritis type (M19.049) Diagnosis 2 Bilateral carpal leander grover syndrome (G56.03) Referral Organization [facility] Referring Provider First Name Alea Referring Provider Last Name Дмитрий Referring Provider [facility] Referred Provider [facility]erred Provider Specialty Physical The rapist General Notes Monica Reveles 02/08/2025 12:33:58 PM >letter mailed; eMessage sent, Monica Reveles 03/06/2025 10:49:41 AM >refaxed referral to [place], fax number verified [phone], Monica Reveles 04/05/2025 02:51:20 PM >Spoke with patient who states she is needing the PT referral sent elsewhere due to missed appt with [facility]. Informed patient will send to [facility]. Address and number given Clinical Notes [facility], [address], [address], [place]. [address], , Referral Priority Routine Reason sees Dr. Tressa Mercado and speciast for Carpal Tunnel Syndrome (bilateral) and referred to Physical Therapy Unable to perform ADL's due to chronic pain in multiple sites including hands and feet with shooting pain and sensation of bones protruding Needs assistance with ADL's including groceries, dressing,etc Diagnosis 1 Osteoarthritis of small nd, unspecified laterality, unspecified osteoarthritis type (M19.049) Diagnosis 2 Bilateral carpal leander grover syndrome (G56.03) Diagnosis 3 Neuropathy involving both lower extremities (G57.93) Diagnosis 4 Generalized arthriti s (M19.90) Referral Organization Replaced by [facility] Referring Provider First Name Alea Referring Provider Last Name Gonzalotye Referring Provider [facility] chrissie Referred Provider Specialty Home Health Care General Notes Monica Reveles 02/15/2025 02:42:57 PM >ARNULFONA has age stipulations and recommended Abdirizak FIELDS Benita J 02/15/2025 04:25:22 PM >letter mailed; Abdirizak Torres Benita J 02/19/2025 11:27:03 AM >Spoke with patient who reports she lives in [facility]. Number to [facility] given. Clinical Notes [facility], ([facility] Care), [address] [place] [address]. [phone], , Referral Priority Routine Medications Medication SIG (Take, Route, Frequency, Duration) Notes Start Date End Date Status hydrOXYzine HCl 50 MG 1-2 tablet Orally once daily at bedtime as needed for sleep; Duration: 30 days Please provide pill packs for patient. Patient may require prescriptions to be mailed to her. Active Diclofenac Potassium 50 mg TAKE 1 TABLET BY MOUTH THREE TIMES A DAY WITH FOOD OR MILK NEEDED; Duration: 10 Active cloNIDine HCl 0.1 MG 1 tablet in the morning and 1 tablet in the evening Orally; Duration: 30 days Please provide pill packs for patient. Patient may require prescriptions to be mailed to her. Active amLODIPine Besylate 10 mg TAKE 1 TABLET BY MOUTH DAILY; Duration: 28 days Active ARIPiprazole 5 MG 1 tablet Orally Once a day; Duration: 30 day(s) 02/21/2025 Active risperiDONE 0.5 MG 1 tablet once nightly Orally; Duration: 30 days Please provide pill packs for patient. Patient may require prescriptions to be mailed to her. Active Vivitrol 380 MG as directed Intramuscular every 28 days; Duration: 28 days 02/27/2025 Active lamoTRIgine 100 MG 1 tablet Orally Once a day; Duration: 30 days Please provide pill packs for patient. Patient may require prescriptions to be mailed to her. Active Losartan Potassium 100 mg TAKE 1 TABLET BY MOUTH DAILY; Duration: 28 Active Cymbalta 30 MG 1 capsule Orally daily; Duration: 30 days Please provide pill packs for patient. Patient may require prescriptions to be mailed to her. Active Folic Acid 1 mg TAKE 1 TABLET BY MOUTH DAILY; Duration: 28 Active Strattera 40 MG 1 capsule in the morning Orally Once a day; Duration: 30 days Please provide pill packs for patient. Patient may require prescriptions to be mailed to her. Active Acetaminophen Extra Strength 500 mg TAKE 1 TABLET BY MOUTH EVERY SIX HOURS; Duration: 28 days Active Wellbutrin XL 150 MG 1 tablet in the morning Orally Once a day; Duration: 30 days Please provide pill packs for patient. Patient may require prescriptions to be mailed to her. Active Vitamin B-12 500 MCG TAKE 1 TABLET BY MOUTH DAILY; Duration: 28 Active traZODone HCl 150 MG 1 tablet at bedtime Orally Once a day; Duration: 30 days Please provide pill packs for patient. Patient may require prescriptions to be mailed to her. Active Tab-A-Jeremias - TAKE 1 TABLET BY [...] TIMES A DAY; Duration: 28 days Active Immunizations Vaccine Route Administration Date Status Comme nts COVID-19 Moderna 1ST IM Intramuscular 09/19/2020 Administered COVID-19 Moderna 2nd IM Intramuscular 10/17/2020 Administered FLU VAC NO PRSV 4VAL 6 mo+ IM Intramuscular 04/03/2022 Administered Pt. tolerated well. No questions/concer ns at this time. Influenza, virus vaccine, trivalent, preservative free IM Intramuscular 05/19/2024 Administered Patient tolerated well Social History Tobacco Use: Social History Observation Description Date Details (start date - stop date) Light tobacco s kaur NA - NA Sex Assigned At : Social History Observation Description Sex Assigned At Female Alcohol Screen (Audit-C) Question Answer Notes Did you have a drink containing alcohol in the p ast year? Yes Points 0 Interpretation Negative PRAPARE Question Answer Notes Date Completed/Updated: 08/16/2024 What is your current housing situation? I have housing [place] [facility] Are you worried about losing your [...] phone, visiting friends or family, going to alevism or club meetings) More than 5 times a week How stressed are you? Stress is when someone feels tense, nervous, anxious, or can\t sleep at night because their mind is troubled Somewhat In the past year have you sp ent more than 2 nights in a row in a senior living, intermediate, fdc center, or juvenile correctional facility? No Do [...] to renzo t Section Notes: [place]ed [place]CHNICAL [place]CHNICAL WR[place] No recent per PDMP. No recent per [place]MP. [place]ICAL [place] TECHNICAL WR[place] No recent per PDMP PRESCRIPTION # FILLED WRITTEN DRUG LABEL QTY DAYS STRENGTH MME PRESCRIBER PHARMACY REFILL NO. REFILLS STATE 12/04/2022 12/04/2022 Phentermine Hcl 30.0 30 37.5 MG ANNE Rodriguez [id number] [employer], [place], [place] NA 0 [place] 1 [id number] 11/20/2020 11/20/2020 HYDROcodone BIT/ACETAMINOPHEN 21.0 7 325 MG-5 MG 15 Isael Cristina PRESCRIPTION # FILLED WRITTEN DRUG LABEL QTY DAYS STRENGTH MME PRESCRIBER PHARMACY REFILL NO. REFILLS STATE 12/04/2022 12/04/2022 Phentermine Hcl 30.0 30 37.5 MG NA Jacques Ibrahim Surinder - [id number] [employer] [place], [place] NA 0 [place] 1 [id number] 11/20/2020 11/20/2020 HYDROcodone BIT/ACETAMINOPHEN 21.0 7 325 MG-5 MG 15 Isael Cristina No recent per PDMP. No recent per PDMP. No recent per PDMP. No recent per PDMP. Reviewed [place] LEAD TECHNICAL WRITER [place] LEAD TECHNICAL WR[place] LE[place] TECHNICAL WR[place] LEAD TECHNICAL WRITER [place] LEAD TECHNICAL WRITER [place] LEAD TECHNICAL WRITER No recent per [place]. [place] LEAD TECHNICAL WRITER [place] LEAD TECHNICAL WRITER [place] LEAD TECHNICAL WRITER [place] LEAD TECHNICAL WR[place] LEAD TECHNICAL WR[place] LEAD TECHNICAL WRITER PRESCRIPTION # FILLED WRITTEN DRUG LABEL QTY DAYS STRENGTH MEDD PRESCRIBER PHARMACY REFILL NO. REFILLS STATE 11/20/2020 11/20/2020 HYDROcodone BIT/ACETAMINOPHEN 21.0 7 325 MG-5 MG 15 Isael Cristina (Dpm) - [id number] [place] 1 [id number] 05/07/2020 05/07/2020 chlordiazePOXIDE HCL 36.0 9 25 MG NA Aly Diallo Md - [id number] [employer] [place], [place] NA 0 [place] 2 [id number] 11/14/2019 11/10/2019 traMADol HCL 15.0 4 50 MG 18.75 Mg Chavez PRESCRIPTION # FILLED WRITTEN DRUG LABEL QTY DAYS STRENGTH MEDD PRESCRIBER PHARMACY REFILL NO. REFILLS STATE 11/20/2020 11/20/2020 HYDROcodone BIT/ACETAMINOPHEN 21.0 7 325 MG-5 MG 15 Isael Cristina (Dpm) - [id number] [place] 1 [id number] 05/07/2020 05/07/2020 chlordiazePOXIDE HCL 36.0 9 25 MG NA Aly Diallo Md - [id number] [place] 2 [id number] 11/14/2019 11/10/2019 traMADol HCL 15.0 4 50 MG 18.75 Mg Chavez No recent per PDMP PRESCRIPTION # FILLED WRITTEN DRUG LABEL QTY DAYS STRENGTH MME PRESCRIBER PHARMACY REFILL NO. REFILLS STATE 12/04/2022 12/04/2022 Phentermine Hcl 30.0 30 37.5 MG NA Jacques Cadena - [id number] [place] 1 [id number] 11/20/2020 11/20/2020 HYDROcodone BIT/ACETAMINOPHEN 21.0 7 325 MG-5 MG 15 Isael Cristina ([facility]) - [id number] [place] 1 320224 05/07/2020 05/07/2020 chlordiazePOXIDE HCL 36.0 9 25 MG Aly Haynes PRESCRIPTION # FILLED WRITTEN DRUG LABEL QTY DAYS STRENGTH MME PRESCRIBER PHARMACY REFILL NO. REFILLS STATE 02/02/2023 02/02/2023 Phentermine Hcl 30.0 30 37.5 MG NA Hannasam Cabralesnadia Cadena - [id number] [place] 1 [id number] 01/05/2023 01/05/2023 Phentermine Hcl 30.0 30 37.5 MG NA Hanna Patrice J - [id number] [place] 1 [id number] 12/04/2022 12/04/2022 Phentermine Hcl 30.0 30 37.5 MG NA Jacques Cadena PRESCRIPTION # FILLED WRITTEN DRUG LABEL QTY DAYS STRENGTH MME PRESCRIBER PHARMACY REFILL NO. REFILLS STATE 03/01/2023 02/05/2023 Phentermine Hcl 30.0 30 37.5 MG NA Jacques Cadena - [id number] [place] 1 [id number] 02/02/2023 02/02/2023 Phentermine Hcl 30.0 30 37.5 MG NA Hanna Patrice J - [id number] [place] 1 [id number] 01/05/2023 01/05/2023 Phentermine Hcl 30.0 30 37.5 MG NA Hanna Patrice J PRESCRIPTION # FILLED WRITTEN DRUG LABEL QTY DAYS STRENGTH MME PRESCRIBER PHARMACY REFILL NO. REFILLS STATE 04/06/2023 04/06/2023 Phentermine Hcl 30.0 30 37.5 MG NA Hanna Patrice J - [id number] [place] 1 111385 03/01/2023 02/05/2023 Phentermine Hcl 30.0 30 37.5 MG NA Hanna Patrice J - [id number] [place] 1 [id number] 02/02/2023 02/02/2023 Phentermine Hcl 30.0 30 37.5 No recent per PDMP. No recent per PDMP. Reviewed [place] LEAD TECHNICAL WRITER Reviewed [place] LEAD TECHNICAL WR[place] Reviewed [place] LEAD TECHNICAL WR[place]ed [place] LEAD TECHNICAL WRITER [place]ed [place] LEAD TECHNICAL WRITER [place]ed [place] LEAD TECHNICAL WR[place] Reviewed [place] LEAD TECHNICAL WRITER PRESCRIPTION # FILLED WRITTEN DRUG LABEL QTY DAYS STRENGTH MME PRESCRIBER PHARMACY REFILL NO. REFILLS STATE 12/04/2022 12/04/2022 Phentermine Hcl 30.0 30 37.5 MG NA Hanna Patrice J - [id number] [place] 0 [place] 1 997361 11/20/2020 11/20/2020 HYDROcodone BIT/ACETAMINOPHEN 21.0 7 325 MG-5 MG 15 Rammacher, Isael No recent per PDMP. No recent per PDMP. No recent per PDMP. No recent per PDMP. No recent per PDMP. Problems Problem Type SNOMED Code ICD Code Onset Dates Problem Status W/U Status Risk Notes Problem Tobacco user (282585236) Nicotine dependence, unspecified, uncomplicated (F17.200) Active confirmed Problem Chronic pain (85794531) Other chronic pain (G89.29) Active confirmed Problem Ulcer of esophagus (09676330) Ulcer of esophagus without bleeding (K22.10) Active confirmed Problem Screening for malignant neoplasm of colon (415509890) Encounter for screening for malignant neoplasm of colon (Z12.11) Active confirmed Problem Tobacco dependence (26123853) Tobacco dependence (F17.200) Active confirmed Problem Alcohol abuse (53080772) Alcohol abuse (F10.10) 024 Active confirmed Problem Posttraumatic stress disorder (96696067) PTSD (post-traumatic stress disorder) (F43.10) Active confirmed Problem Anxiety (67921465) Anxiety (F41.9) Active confi rmed Problem Bipolar 1 disorder (252940015) Bipolar 1 disorder (F31.9) 022 Active confirmed Problem Vitamin D deficiency (79232595) Vitamin D deficiency (E55.9) Active confirmed Problem Restless legs syndrome (01797499) Restless leg syndrome (G25.81) Active confirmed Problem Alcohol use disorder (6369547259) Alcohol use disorder (F10.99) Active confirmed Problem Seasonal allergy (181533669) Seasonal allergies (J30.2) Active confirmed Problem Arthritis (2310331) Arthritis (M19.90) Active c onfirmed Problem History of methamphetamine use (06817882857337213) Methamphetamine use (F15.10) Active confirmed Problem Obesity (751758025) Obesity (BMI 30-39.9) (E66.9) Active confirmed Problem Gynecological examination normal (922809969369989) Well woman exam with routine gynecological exam (Z01.419) Active confirmed Problem Abdominal discomfort (04565403) Abdominal discomfort (R10.9) Active confirmed Problem Urinary incontinence (821088126) Urinary incontinence, unspecified type (R32) Active confirmed Problem Malabsorption syndrome (06864081) Malabsorption due to intolerance, not elsewhere classified (K90.49) Active confirmed Problem Bilateral carpal tunnel syndrome (31336764953600597) Bilateral carpal tunnel syndrome (G56.03) Active confirmed Problem Peripheral neuropathy of bilateral lower limbs (disorder) (78424676565421147) Neuropathy involving both lower extremities (G57.93) Active confirmed Problem Tobacco use (602361331) Tobacco use disorder (F17.200) Active confirmed Problem Impaired glucose tolerance (7228283) Impaired glucose tolerance (R73.02) Active confirmed Problem Essential hypertension (66836084) Hypertension, unspecified type (I10) Active confirmed Problem Allergic rhinitis (42788118) Allergic rhinitis, unspecified seasonality, unspecified trigger (J30.9) Active confirmed Problem Localized, primary osteoarthritis of the hand (693979264) Osteoarthritis of hand, unspecified laterality, unspecified osteoarthritis type (M19.049) Active confirmed Problem Gastroesophageal reflux disease with esophagitis (disorder) (799829393) Gastroesophageal reflux disease with esophagitis without hemorrhage (K21.00) Active confirmed Problem Impaired concentration (0602608018) Impaired concentration (R41.840) 024 Active confirmed Problem Generalized arthritis (247940223) Generalized arthritis (M19.90) Active confirmed Vital Signs Heart Rate 96 /min 04/09/2025 Temperature 98.1 degrees Fahrenheit 04/09/2025 Respiratory Rate 16 /min 04/09/2025 Oximetry 98 % 04/09/2025 Blood pressure diastolic 78 mm Hg 04/09/2025 Height 66in in 04/09/2025 Blood pressure systolic 110 mm Hg 04/09/2025 Weight 136lb 6oz lbs 04/09/2025 BMI 22.01 kg/m2 04/09/2025 Encounters Encounter Location Date Provider Diagnosis [address] [address] 04/21/2024 Ino Jensen Bipolar 1 disorder F31.9 ; PTSD (post-traumatic stress disorder) F43.10 ; Impaired concentration R41.840 ; Methamphetamine use F15.10 ; Alcohol abuse F10.10 and Nicotine dependence, unspecified, uncomplicated F17.[address] [address] 05/19/2024 Ino Jensen Bipolar 1 disorder F31.9 ; PTSD (post-traumatic stress disorder) F43.10 ; Impaired concentration R41.840 ; Methamphetamine use F15.10 ; Alcohol abuse F10.10 ; Nicotine dependence, unspecified, uncomplicated F17.200 and Encounter for immunization Z23 [address] [address] 07/12/2024 Ino Jensen PTSD (post-traumatic stress disorder) F43.10 ; Bipolar 1 disorder F31.9 ; Impaired concentration R41.840 ; Methamphetamine use F15.10 ; Alcohol abuse F10.10 and Nicotine dependence, unspecified, uncomplicated F17.[address] [address] 08/15/2024 Ino Jensen PTSD (post-traumatic stress disorder) F43.10 ; Bipolar 1 disorder F31.9 ; Impaired concentration R41.840 ; Methamphetamine use F15.10 ; Alcohol abuse F10.10 and Nicotine dependence, unspecified, uncomplicated F17.[address] [address] 08/17/2024 Patrice Hammondton Pain in right hand M79.641 ; Pain in left hand M79.642 ; Methamphetamine use F15.10 ; Hx of renal cell carcinoma Z85.528 ; Spinal cord stimulator status Z96.89 ; Right foot pain M79.671 and Nicotine dependence, unspecified, uncomplicated F17.[address] [address] 09/27/2024 Alea Choe Breast cancer screening Z12.39 ; Bunion of right foot M21.611 and Bunion of left foot M21.[address] [address] 09/28/2024 Ino Jensen PTSD (post-traumatic stress disorder) F43.10 ; Bipolar 1 disorder F31.9 ; Impaired concentration R41.840 ; Methamphetamine use F15.10 ; Alcohol abuse F10.10 and Nicotine dependence, unspecified, uncomplicated F17.[address] [address] 11/22/2024 Keira Hamilton PTSD (post-traumatic stress disorder) F43.10 ; Bipolar 1 disorder F31.9 ; Impaired concentration R41.840 ; Methamphetamine use F15.10 ; Alcohol abuse F10.10 ; Nicotine dependence, unspecified, uncomplicated F17.200 and Restless leg syndrome G25.81 [facility] [address] [place] [address] 12/06/2024 Alea Tanwangco Arthritis M19.90 and Nicotine dependence, unspecified, uncomplicated F17.[address] [place] [address] 12/27/2024 Keira Hamilton PTSD (post-traumatic stress disorder) F43.10 ; Bipolar 1 disorder F31.9 ; Impaired concentration R41.840 ; Methamphetamine use F15.10 ; Alcohol abuse F10.10 ; Nicotine dependence, unspecified, uncomplicated F17.200 and Restless leg syndrome G25.81 [facility] [address] [place] [address] 02/07/2025 Alea Tanwangco Osteoarthritis of hand, unspecified laterality, unspecified osteoarthritis type M19.049 ; Bilateral carpal tunnel syndrome G56.03 and Neuropathy involving both lower extremities G57.[address] [address] 02/21/2025 Keira Hamilton PTSD (post-traumatic stress disorder) F43.10 ; Bipolar 1 disorder F31.9 ; Impaired concentration R41.840 ; Methamphetamine use F15.10 ; Alcohol abuse F10.10 ; Nicotine dependence, unspecified, uncomplicated F17.200 and Restless leg syndrome G25.81 [place] [address] [place] [address] 02/27/2025 Eve De Alcohol use disorder F10.99 and Methamphetamine use F15.10 [facility] [address] [address] 03/27/2025 Aleaterry Moralesngco Alcohol use disorder F10.99 and Nicotine dependence, unspecified, uncomplicated F17.200 [facility] [address] [place] [address] 03/29/2025 Aleaterry Martinezco Right shoulder pain, unspecified chronicity M25.511 ; Right hip pain M25.551 ; Nicotine dependence, unspecified, uncomplicated F17.200 and Hypertension, unspecified type I10 [address] [place] [address] 04/09/2025 Keira Hamilton PTSD (post-traumatic stress disorder) F43.10 ; Bipolar 1 disorder F31.9 ; Impaired concentration R41.840 ; Methamphetamine use F15.10 ; Alcohol abuse F10.10 ; Nicotine dependence, unspecified, uncomplicated F17.200 and Restless leg syndrome G25.[address] [address] 04/11/2024 Ino Jensen Impaired concentrati on R41.[address] [address] 04/28/2024 Ino Jensen [address] [address] 05/19/2024 Brown Weinstein for screening for malignant neoplasm of colon Z12.[address] [address] 06/02/2024 Brown Rivera [address] [address] 06/20/2024 Brown Rivera [address] [address] 07/11/2024 Ino Jensen [address] [address] 07/12/[address] [address] 08/30/[address] [address] 08/30/[address] [address] 09/28/2024 Ino Jensen [facility] [address] [place] [address] 12/04/2024 Alea Cohe [address] [address] 12/07/2024 Alea Choe Osteoarthritis of hand, unspecified laterality, unspecified osteoarthritis type M19.049 [facility] [address] [place] [address] 12/19/2024 Alea Choe Arthritis M19.90 [facility] [address] [place] [address] 12/26/2024 Alea Choe [address] [place] [address] 01/19/2025 Keira Hamilton [address] [place] [address] 01/25/2025 Alea Choe [facility] [address] [address] 02/19/2025 Alea Choe Nutritional counseling Z71.3 ; Hypertension, unspecified type I10 ; Arthritis M19.90 and Bipolar 1 disorder F31.9 [facility] [place] [address] [place] [address] 02/23/2025 Alea Choe [address] [place] [address] 03/06/2025 Alea Choe [facility] [address] [address] 03/06/2025 Alea Choe [address] [place] [address] 03/26/2025 Keira Hamilton [facility] [address] [address] 04/05/2025 Alea Choe [address] [place]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 grains, unsaturated/healt hy fats (liquid at room temperature, such as [...] techniques, such as guided imagery, journaling, aromatherapy, acupuncture/acupr essure, deep breathing, etc. Practice healthy sleep hygiene [...] Continue monitoring symptoms - report persistent or worsening/concern ing symptoms to the office or go to the ER. For mental health CRISIS, please reach out to [phone] ([employer] Suicide and Crisis Lifeline), 911, go to the emergency department, or contact the [facility] Crisis Unit/Team. Follow up as scheduled in 4 weeks or sooner if necessary. Follow up with PCP and/or other specialists as advised. NEXT STEP: Consider medication adjustments as needed. 08/17/2024 Methamphetamine use (ICD-10 - F15.10) 09/27/2024 Bunion of left foot (ICD-10 - M21.612) 08/15/2024 Bipolar 1 disorder (ICD-10 - F31.9) Duration (acute/chronic), stability (controlled/uncon trolled): Chronic, uncontrolled, patient not reportedly taking medications consistently or as prescribed, see HPI Current medications/effic acy: Somewhat, room for improvement Previous medication trials: Balfour, Prozac, Effexor, Trazodone Seroquel, Xanax, Wellbutrin, Zoloft, clonidine, Abilify (dizziness) Current/previous therapies: Follows up with therapy multiple times weekly Examination as documented - see pertinent aspects of office visit documentation. Pertinent diagnostics: UNABLE TO ASSESS TODAY, WILL DISCUSS AT FUTURE VISIT Differential diagnoses: Provider and patient had long [...] another reason to take medications consistently as prescribed/discus sed RECOMMENDATIONS: DECREASE risperidone as prescribed (anxiety/depressi on/mood/stability ) - educated patient/guardian on adverse effects, risks and benefits, as well as alternative treatments ADJUST lamotrigine as prescribed (anxiety/depressi on/mood/stability ), 100mg in the AM, 200mg in the PM - educated patient/guardian on adverse effects, risks and benefits, as well as alternative treatments DECREASE clonidine as prescribed/discus sed, 0.1mg twice daily rather than 0.2mg in the AM and 0.1mg in the PM - educated patient/guardian on adverse effects, risks and benefits, as well as alternative treatments Continue/modify other medications as prescribed - educated patient/guardian on adverse effects, risks and benefits, as well as alternative treatments Consume well balanced diet, preferably low in saturated fats (solid at room temperature, such as butter, margarine, Crisco, etc) and low in sodium (<2,000mg per day). Consume plenty of fruits/vegetables , healthy grains/whole grains, unsaturated/healt hy fats (liquid at room temperature, such as [...] techniques, such as guided imagery, journaling, aromatherapy, acupuncture/acupr essure, deep breathing, etc. Practice healthy sleep hygiene [...] Continue monitoring symptoms - report persistent or worsening/concern ing symptoms to the office or go to the ER. For mental health CRISIS, please reach out to [phone] (National Suicide and Crisis Lifeline), 911, go to the emergency department, or contact the [facility] Crisis Unit/Team. Follow up as scheduled in 3 weeks or sooner if necessary. Follow up with PCP and/or other specialists as advised. NEXT STEP: Consider increasing risperidone pending response/tolerabi lity. Consider increasing lamotrigine as needed. Consider other SGA as needed. Consider increasing hydroxyzine as needed to assist with sleep. Consider adding propranolol to assist with anxiety. 07/12/2024 Impaired concentration (ICD-10 - R41.840) Duration (acute/chronic), stability (controlled/uncon trolled): Chronic, uncontrolled, taking Strattera as prescribed Current medications/effic acy: No Previous medication trials: Effexor, Wellbutrin, clonidine, Strattera Current/previous therapies: Follows up with therapy multiple times weekly Examination as documented - see pertinent aspects of office visit documentation. Pertinent diagnostics: UNABLE to assess due to patient not wanting to finish interview today, reqesting to finish interview at follow up Differential diagnoses: suspect likely related to uncontrolled bipolar I disorder, as well as continued methamphetamine use RECOMMENDATIONS: Continue/modify other medications as prescribed - educated patient/guardian on adverse effects, risks and benefits, as well as alternative treatments Consume well balanced diet, preferably low in saturated fats (solid at room temperature, such as butter, margarine, Crisco, etc) and low in sodium (<2,000mg per day). Consume plenty of fruits/vegetables , healthy grains/whole grains, unsaturated/healt hy fats (liquid at room temperature, such as [...] techniques, such as guided imagery, journaling, aromatherapy, acupuncture/acupr essure, deep breathing, etc. Practice healthy sleep hygiene [...] Continue monitoring symptoms - report persistent or worsening/concern ing symptoms to the office or go to the ER. For mental health CRISIS, please reach out to [phone] (National Suicide and Crisis Lifeline), 911, go to the emergency department, or contact the [facility] Crisis Unit/Team. Follow up as scheduled in 3 weeks or sooner if necessary. Follow up with PCP and/or other specialists as advised. NEXT STEP: Consider increasing nighttime dose of clonidine pending response/tolerabi lity. Consider further improvement of bipolar disorder management. 05/19/2024 Impaired concentration (ICD-10 - R41.840) Duration (acute/chronic), stability (controlled/uncon trolled): Chronic, uncontrolled, taking Strattera as prescribed Current medications/effic acy: No Previous medication trials: Effexor, Wellbutrin, clonidine, Strattera Current/previous therapies: Follows up with therapy multiple times weekly Examination as documented - see pertinent aspects of office visit documentation. Pertinent diagnostics: UNABLE to assess due to patient not wanting to finish interview today, reqesting to finish interview at follow up Differential diagnoses: suspect likely related to uncontrolled bipolar I disorder, as well as continued methamphetamine use RECOMMENDATIONS: Continue/modify other medications as prescribed - educated patient/guardian on adverse effects, risks and benefits, as well as alternative treatments Consume well balanced diet, preferably low in saturated fats (solid at room temperature, such as butter, margarine, Crisco, etc) and low in sodium (<2,000mg per day). Consume plenty of fruits/vegetables , healthy grains/whole grains, unsaturated/healt hy fats (liquid at room temperature, such as [...] techniques, such as guided imagery, journaling, aromatherapy, acupuncture/acupr essure, deep breathing, etc. Practice healthy sleep hygiene [...] Continue monitoring symptoms - report persistent or worsening/concern ing symptoms to the office or go to the ER. For mental health CRISIS, please reach out to [phone] ([employer] Suicide and Crisis Lifeline), 911, go to the emergency department, or contact the [facility] Crisis Unit/Team. Follow up as scheduled in 2 week or sooner if necessary. Follow up with PCP and/or other specialists as advised. NEXT STEP: Consider increasing nighttime dose of clonidine pending response/tolerabi lity. Consider further improvement of bipolar disorder management. 04/21/2024 PTSD (post-traumatic stress disorder) (ICD-10 - F43.10) See assessment and plan for bipolar I disorder 04/21/2024 Impaired concentration (ICD-10 - R41.840) Duration (acute/chronic), stability (controlled/uncon trolled): Chronic, uncontrolled, taking Strattera as prescribed Current medications/effic acy: No Previous medication trials: Effexor, Wellbutrin, clonidine, Strattera Current/previous therapies: Follows up with therapy multiple times weekly Examination as documented - see pertinent aspects of office visit documentation. Pertinent diagnostics: UDS ordered today - UNABLE to assess due to patient not wanting to finish interview today, reqesting to finish interview at follow up Differential diagnoses: suspect likely related to uncontrolled bipolar I disorder, as well as continued methamphetamine use RECOMMENDATIONS: INCREASE clonidine as prescribed (anxiety/attentio n) - educated patient/guardian on adverse effects, risks and benefits, as well as alternative treatments Continue/modify other medications as prescribed - educated patient/guardian on adverse effects, risks and benefits, as well as alternative treatments Consume well balanced diet, preferably low in saturated fats (solid at room temperature, such as butter, margarine, Crisco, etc) and low in sodium (<2,000mg per day). Consume plenty of fruits/vegetables , healthy grains/whole grains, unsaturated/healt hy fats (liquid at room temperature, such as [...] techniques, such as guided imagery, journaling, aromatherapy, acupuncture/acupr essure, deep breathing, etc. Practice healthy sleep hygiene [...] Continue monitoring symptoms - report persistent or worsening/concern ing symptoms to the office or go to the ER. For mental health CRISIS, please reach out to [phone] ([employer] Suicide and Crisis Lifeline), 911, go to the emergency department, or contact the [facility] Crisis Unit/Team. Follow up as scheduled in 1 week or sooner if necessary. Follow up with PCP and/or other specialists as advised. NEXT STEP: Consider increasing nighttime dose of clonidine pending response/tolerabi lity. Consider further improvement of bipolar disorder management. 05/19/2024 Methamphetamine use (ICD-10 - F15.10) Duration (acute/chronic), stability (controlled/uncon trolled): Chronic, methamphetamine, has been using regularly for last few years, stopped in 07/2023 after loss of boyfriend, recent relapse about 1 week ago, see HPI Current medications/effic acy: Somewhat Previous medication trials: see HPI Current/previous therapies: Follows up with therapy multiple times weekly Examination as documented - see pertinent aspects of office visit documentation. Pertinent diagnostics: UNABLE to assess due to patient not wanting to finish interview today, reqesting to finish interview at follow up Differential diagnoses: RECOMMENDATIONS: Continue medications as prescribed - educated patient/guardian on adverse effects, risks and benefits, as well as alternative treatments Consume well balanced diet, preferably low in saturated fats (solid at room temperature, such as butter, margarine, Crisco, etc) and low in sodium (<2,000mg per day). Consume plenty of fruits/vegetables , healthy grains/whole grains, unsaturated/healt hy fats (liquid at room temperature, such as [...] techniques, such as guided imagery, journaling, aromatherapy, acupuncture/acupr essure, deep breathing, etc. Practice healthy sleep hygiene - maintain regular routine, no caffeine after 1PM, no exercise 1-2 hours prior to bedtime, keep bedroom dark and cool, no TV or electronics while in bed. Consider melatonin as needed. Consider cognitive behavioral therapy for insomnia (CBT-I). Consider/Continue therapy. Continue substance cessation therapy as prescribed by MAT provider Manage co-morbid conditions. Continue monitoring symptoms - report persistent or worsening/concern ing symptoms to the office or go to the ER. For mental health CRISIS, please reach out to [phone] (National Suicide and Crisis Lifeline), 911, go to the emergency department, or contact the [facility]/Team. Follow up as scheduled or sooner if necessary. Follow up with PCP and/or other specialists as advised. NEXT STEP: Continue to make adjustments to medications to assist with mood management. 07/12/2024 Methamphetamine use (ICD-10 - F15.10) Duration (acute/chronic), stability (controlled/uncon trolled): Chronic, methamphetamine, has been using regularly for last few years, stopped in 07/2023 after loss of boyfriend, recent relapse reported during previous appointment, see HPI Current medications/effic acy: Somewhat Previous medication trials: see HPI Current/previous therapies: Follows up with therapy multiple times weekly Examination as documented - see pertinent aspects of office visit documentation. Pertinent diagnostics: UNABLE to assess due to patient not wanting to finish interview today, reqesting to finish interview at follow up Differential diagnoses: RECOMMENDATIONS: Continue medications as prescribed - educated patient/guardian on adverse effects, risks and benefits, as well as alternative treatments Consume well balanced diet, preferably low in saturated fats (solid at room temperature, such as butter, margarine, Crisco, etc) and low in sodium (<2,000mg per day). Consume plenty of fruits/vegetables , healthy grains/whole grains, unsaturated/healt hy fats (liquid at room temperature, such as [...] techniques, such as guided imagery, journaling, aromatherapy, acupuncture/acupr essure, deep breathing, etc. Practice healthy sleep hygiene - maintain regular routine, no caffeine after 1PM, no exercise 1-2 hours prior to bedtime, keep bedroom dark and cool, no TV or electronics while in bed. Consider melatonin as needed. Consider cognitive behavioral therapy for insomnia (CBT-I). Consider/Continue therapy. Continue substance cessation therapy as prescribed by MAT provider Manage co-morbid conditions. Continue monitoring symptoms - report persistent or worsening/concern ing symptoms to the office or go to the ER. For mental health CRISIS, please reach out to [phone] (National Suicide and Crisis Lifeline), 911, go to the emergency department, or contact the [facility]/Team. Follow up as scheduled or sooner if necessary. Follow up with PCP and/or other specialists as advised. NEXT STEP: Continue to make adjustments to medications to assist with mood management. 08/15/2024 Impaired concentration (ICD-10 - R41.840) Duration (acute/chronic), stability (controlled/uncon trolled): Chronic, uncontrolled, patient not taking medications consistently or as prescribed, see HPI Current medications/effic acy: No Previous medication trials: Effexor, Wellbutrin, clonidine, Strattera Current/previous therapies: Follows up with therapy multiple times weekly Examination as documented - see pertinent aspects of office visit documentation. Pertinent diagnostics: UNABLE TO ASSESS TODAY, WILL DISCUSS AT FUTURE VISIT Differential diagnoses: suspect likely related to uncontrolled [...] another reason to take medications consistently as prescribed/discus sed RECOMMENDATIONS: Continue/modify other medications as prescribed - educated patient/guardian on adverse effects, risks and benefits, as well as alternative treatments Consume well balanced diet, preferably low in saturated fats (solid at room temperature, such as butter, margarine, Crisco, etc) and low in sodium (<2,000mg per day). Consume plenty of fruits/vegetables , healthy grains/whole grains, unsaturated/healt hy fats (liquid at room temperature, such as [...] techniques, such as guided imagery, journaling, aromatherapy, acupuncture/acupr essure, deep breathing, etc. Practice healthy sleep hygiene [...] Continue monitoring symptoms - report persistent or worsening/concern ing symptoms to the office or go to the ER. For mental health CRISIS, please reach out to [phone] ([facility] Suicide and Crisis Lif[facility]), 911, go to the emergency department, or contact the [facility]/Team. Follow up as scheduled in 3 weeks or sooner if necessary. Follow up with PCP and/or other specialists as advised. NEXT STEP: Consider increasing nighttime dose of clonidine pending response/tolerabi lity. Consider further improvement of bipolar disorder management. 08/17/2024 Hx of renal cell carcinoma (ICD-10 - Z85.528) 09/28/2024 Impaired concentration (ICD-10 - R41.840) Duration (acute/chronic), stability (controlled/uncon trolled): Chronic, uncontrolled, patient not taking medications consistently or as prescribed, see HPI Current medications/effic acy: No Previous medication trials: Effexor, Wellbutrin, clonidine, Strattera Current/previous therapies: Follows up with therapy multiple times weekly Examination as documented - see pertinent aspects of office visit documentation. Pertinent diagnostics: UNABLE to assess during appointment today due to patient's emotional state and very pressured speech with notable circumstantiality , tangentiality and some loose associations (see above) [...] another reason to take medications consistently as prescribed/discus sed RECOMMENDATIONS: RESTART/modify other medications as prescribed - educated patient/guardian on adverse effects, risks and benefits, as well as alternative treatments Consume well balanced diet, preferably low in saturated fats (solid at room temperature, such as butter, margarine, Crisco, etc) and low in sodium (<2,000mg per day). Consume plenty of fruits/vegetables , healthy grains/whole grains, unsaturated/healt hy fats (liquid at room temperature, such as [...] techniques, such as guided imagery, journaling, aromatherapy, acupuncture/acupr essure, deep breathing, etc. Practice healthy sleep hygiene [...] Continue monitoring symptoms - report persistent or worsening/concern ing symptoms to the office or go to the ER. For mental health CRISIS, please reach out to [phone] ([facility] Suicide and Crisis Lif[facility]), 911, go to the emergency department, or contact the [facility]/Team. Follow up as scheduled in 4 weeks or sooner if necessary. Follow up with PCP and/or other specialists as advised. NEXT STEP: Consider increasing nighttime dose of clonidine pending response/tolerabi lity. Consider further improvement of bipolar disorder management. 11/22/2024 Impaired concentration (ICD-10 - R41.840) Duration (acute/chronic), stability (controlled/uncon trolled): Chronic, uncontrolled, patient not taking medications consistently or as prescribed, see HPI Current medications/effic acy: No Previous medication trials: Effexor, Wellbutrin, clonidine, Strattera Current/previous therapies: Follows up with therapy multiple times weekly Examination as documented - see pertinent aspects of office visit documentation. Pertinent diagnostics: UNABLE to assess during appointment today due to patient's emotional state and very pressured speech with notable circumstantiality , tangentiality and some loose associations (see above) [...] another reason to take medications consistently as prescribed/discus sed RECOMMENDATIONS: RESTART/modify other medications as prescribed - educated patient/guardian on adverse effects, risks and benefits, as well as alternative treatments Consume well balanced diet, preferably low in saturated fats (solid at room temperature, such as butter, margarine, Crisco, etc) and low in sodium (<2,000mg per day). Consume plenty of fruits/vegetables , healthy grains/whole grains, unsaturated/healt hy fats (liquid at room temperature, such as [...] techniques, such as guided imagery, journaling, aromatherapy, acupuncture/acupr essure, deep breathing, etc. Practice healthy sleep hygiene [...] Continue monitoring symptoms - report persistent or worsening/concern ing symptoms to the office or go to the ER. For mental health CRISIS, please reach out to [phone] ([employer] Suicide and Crisis Lifeline), 911, go to the emergency department, or contact the [facility]/Team. Follow up as scheduled in 4 weeks or sooner if necessary. Follow up with PCP and/or other specialists as advised. NEXT STEP: Consider increasing nighttime dose of clonidine pending response/tolerabi lity. Consider further improvement of bipolar disorder management. 12/27/2024 Impaired concentration (ICD-10 - R41.840) Duration (acute/chronic), stability (controlled/uncon trolled): Chronic, uncontrolled, patient not taking medications consistently or as prescribed, see HPI Current medications/effic acy: No Previous medication trials: Effexor, Wellbutrin, clonidine, Strattera Current/previous therapies: Follows up with therapy multiple times weekly Examination as documented - see pertinent aspects of office visit documentation. Pertinent diagnostics: UNABLE to assess during appointment today due to patient's emotional state and very pressured speech with notable circumstantiality , tangentiality and some loose associations (see above) [...] another reason to take medications consistently as prescribed/discus sed RECOMMENDATIONS: RESTART/modify other medications as prescribed - educated patient/guardian on adverse effects, risks and benefits, as well as alternative treatments Consume well balanced diet, preferably low in saturated fats (solid at room temperature, such as butter, margarine, Crisco, etc) and low in sodium (<2,000mg per day). Consume plenty of fruits/vegetables , healthy grains/whole grains, unsaturated/healt hy fats (liquid at room temperature, such as [...] techniques, such as guided imagery, journaling, aromatherapy, acupuncture/acupr essure, deep breathing, etc. Practice healthy sleep hygiene [...] Continue monitoring symptoms - report persistent or worsening/concern ing symptoms to the office or go to the ER. For mental health CRISIS, please reach out to [phone] ([facility] Suicide and Crisis Lif[facility]), 911, go to the emergency department, or contact the [facility]/Team. Follow up as scheduled in 4 weeks or sooner if necessary. Follow up with PCP and/or other specialists as advised. NEXT STEP: Consider increasing nighttime dose of clonidine pending response/tolerabi lity. Consider further improvement of bipolar disorder management. 02/19/2025 Arthritis (ICD-10 - M19.90) 02/21/2025 Impaired concentration (ICD-10 - R41.840) Duration (acute/chronic), stability (controlled/uncon trolled): Chronic, uncontrolled, patient not taking medications consistently or as prescribed, see HPI Current medications/effic acy: No Previous medication trials: Effexor, Wellbutrin, clonidine, Strattera Current/previous therapies: Follows up with therapy multiple times weekly Examination as documented - see pertinent aspects of office visit documentation. Pertinent diagnostics: UNABLE to assess during appointment today due to patient's emotional state and very pressured speech with notable circumstantiality , tangentiality and some loose associations (see above) [...] another reason to take medications consistently as prescribed/discus sed RECOMMENDATIONS: RESTART/modify other medications as prescribed - educated patient/guardian on adverse effects, risks and benefits, as well as alternative treatments Consume well balanced diet, preferably low in saturated fats (solid at room temperature, such as butter, margarine, Crisco, etc) and low in sodium (<2,000mg per day). Consume plenty of fruits/vegetables , healthy grains/whole grains, unsaturated/healt hy fats (liquid at room temperature, such as [...] techniques, such as guided imagery, journaling, aromatherapy, acupuncture/acupr essure, deep breathing, etc. Practice healthy sleep hygiene [...] Continue monitoring symptoms - report persistent or worsening/concern ing symptoms to the office or go to the ER. For mental health CRISIS, please reach out to [phone] (National Suicide and Crisis Lifeline), 911, go to the emergency department, or contact the [facility] Crisis Unit/Team. Follow up as scheduled in 4 weeks or sooner if necessary. Follow up with PCP and/or other specialists as advised. NEXT STEP: Consider increasing nighttime dose of clonidine pending response/tolerabi lity. Consider further improvement of bipolar disorder management. 03/29/2025 Hypertension, unspecified type (ICD-10 - I10) HTN: Patient was instructed to take meds as directed and warned of all consequences of high blood pressure including but not limited to STROKE, [place], Renal failure. Patient was warned if any headache, visual changes, neurological symptoms or any concerns immediately go to ER or call 911 . Patient verbalized understanding. Patient advised to check his b/p randomely , keep an eye of blood pressure. Provided script for BP machine if needed. May do b/p log and may bring log next visit . Advised to cut down sodium intake. Do not add salt to meals. Advised to exercise if not contra-indicated. 30m daily 5 x weekly. Patient advised to do labs as ordered. 04/09/2025 Impaired concentration (ICD-10 - R41.840) Duration (acute/chronic), stability (controlled/uncon trolled): Chronic, uncontrolled, patient not taking medications consistently or as prescribed, see HPI Current medications/effic acy: No Previous medication trials: Effexor, Wellbutrin, clonidine, Strattera Current/previous therapies: Follows up with therapy multiple times weekly Examination as documented - see pertinent aspects of office visit documentation. Pertinent diagnostics: UNABLE to assess during appointment today due to patient's emotional state and very pressured speech with notable circumstantiality , tangentiality and some loose associations (see above) [...] another reason to take medications consistently as prescribed/discus sed RECOMMENDATIONS: RESTART/modify other medications as prescribed - educated patient/guardian on adverse effects, risks and benefits, as well as alternative treatments Consume well balanced diet, preferably low in saturated fats (solid at room temperature, such as butter, margarine, Crisco, etc) and low in sodium (<2,000mg per day). Consume plenty of fruits/vegetables , healthy grains/whole grains, unsaturated/healt hy fats (liquid at room temperature, such as [...] techniques, such as guided imagery, journaling, aromatherapy, acupuncture/acupr essure, deep breathing, etc. Practice healthy sleep hygiene [...] Continue monitoring symptoms - report persistent or worsening/concern ing symptoms to the office or go to the ER. For mental health CRISIS, please reach out to [phone] (National Suicide and Crisis Lifeline), 911, go to the emergency department, or contact the [facility] Crisis Unit/Team. Follow up as scheduled in 4 weeks or sooner if necessary. Follow up with PCP and/or other specialists as advised. NEXT STEP: Consider increasing nighttime dose of clonidine pending response/tolerabi lity. Consider further improvement of bipolar disorder management. 04/09/2025 Methamphetamine use (ICD-10 - F15.10) Duration (acute/chronic), stability (controlled/uncon trolled): Chronic, methamphetamine, has been using regularly for last few years, stopped in 07/2023 after loss of boyfriend, recent relapse reported during appointment, see HPI Current medications/effic acy: N/A Previous medication trials: N/A Current/previous therapies: Reportedly follows up with therapy multiple times weekly Examination as documented - see pertinent aspects of office visit documentation. Pertinent diagnostics: UNABLE to assess during appointment today due to patient's emotional state and very pressured speech with notable circumstantiality , tangentiality and some loose associations (see above) [...] another reason to take medications consistently as prescribed/discus sed RECOMMENDATIONS: RESTART/modify medications as prescribed - educated patient/guardian on adverse effects, risks and benefits, as well as alternative treatments Consume well balanced diet, preferably low in saturated fats (solid at room temperature, such as butter, margarine, Crisco, etc) and low in sodium (<2,000mg per day). Consume plenty of fruits/vegetables , healthy grains/whole grains, unsaturated/healt hy fats (liquid at room temperature, such as [...] techniques, such as guided imagery, journaling, aromatherapy, acupuncture/acupr essure, deep breathing, etc. Practice healthy sleep hygiene [...] Continue monitoring symptoms - report persistent or worsening/concern ing symptoms to the office or go to the ER. For mental health CRISIS, please reach out to [phone] (National Suicide and Crisis Lifeline), 911, go to the emergency department, or contact the [facility] Crisis Unit/Team. Follow up as scheduled or sooner if necessary. Follow up with PCP and/or other specialists as advised. NEXT STEP: Consider medication adjustments as needed. 02/21/2025 Methamphetamine use (ICD-10 - F15.10) Duration (acute/chronic), stability (controlled/uncon trolled): Chronic, methamphetamine, has been using regularly for last few years, stopped in 07/2023 after loss of boyfriend, recent relapse reported during appointment, see HPI Current medications/effic acy: N/A Previous medication trials: N/A Current/previous therapies: Reportedly follows up with therapy multiple times weekly Examination as documented - see pertinent aspects of office visit documentation. Pertinent diagnostics: UNABLE to assess during appointment today due to patient's emotional state and very pressured speech with notable circumstantiality , tangentiality and some loose associations (see above) [...] another reason to take medications consistently as prescribed/discus sed RECOMMENDATIONS: RESTART/modify medications as prescribed - educated patient/guardian on adverse effects, risks and benefits, as well as alternative treatments Consume well balanced diet, preferably low in saturated fats (solid at room temperature, such as butter, margarine, Crisco, etc) and low in sodium (<2,000mg per day). Consume plenty of fruits/vegetables , healthy grains/whole grains, unsaturated/healt hy fats (liquid at room temperature, such as [...] techniques, such as guided imagery, journaling, aromatherapy, acupuncture/acupr essure, deep breathing, etc. Practice healthy sleep hygiene [...] Continue monitoring symptoms - report persistent or worsening/concern ing symptoms to the office or go to the ER. For mental health CRISIS, please reach out to [phone] ([employer] Suicide and Crisis Lifeline), 911, go to the emergency department, or contact the [facility] Crisis Unit/Team. Follow up as scheduled or sooner if necessary. Follow up with PCP and/or other specialists as advised. NEXT STEP: Consider medication adjustments as needed. 02/19/2025 Bipolar 1 disorder (ICD-10 - F31.9) 12/27/2024 Methamphetamine use (ICD-10 - F15.10) Duration (acute/chronic), stability (controlled/uncon trolled): Chronic, methamphetamine, has been using regularly for last few years, stopped in 07/2023 after loss of boyfriend, recent relapse reported during appointment, see HPI Current medications/effic acy: N/A Previous medication trials: N/A Current/previous therapies: Reportedly follows up with therapy multiple times weekly Examination as documented - see pertinent aspects of office visit documentation. Pertinent diagnostics: UNABLE to assess during appointment today due to patient's emotional state and very pressured speech with notable circumstantiality , tangentiality and some loose associations (see above) [...] another reason to take medications consistently as prescribed/discus sed RECOMMENDATIONS: RESTART/modify medications as prescribed - educated patient/guardian on adverse effects, risks and benefits, as well as alternative treatments Consume well balanced diet, preferably low in saturated fats (solid at room temperature, such as butter, margarine, Crisco, etc) and low in sodium (<2,000mg per day). Consume plenty of fruits/vegetables , healthy grains/whole grains, unsaturated/healt hy fats (liquid at room temperature, such as [...] techniques, such as guided imagery, journaling, aromatherapy, acupuncture/acupr essure, deep breathing, etc. Practice healthy sleep hygiene [...] Continue monitoring symptoms - report persistent or worsening/concern ing symptoms to the office or go to the ER. For mental health CRISIS, please reach out to [phone] (National Suicide and Crisis Lifeline), 911, go to the emergency department, or contact the [facility] Unit/Team. Follow up as scheduled or sooner if necessary. Follow up with PCP and/or other specialists as advised. NEXT STEP: Consider medication adjustments as needed. 11/22/2024 Methamphetamine use (ICD-10 - F15.10) Duration (acute/chronic), stability (controlled/uncon trolled): Chronic, methamphetamine, has been using regularly for last few years, stopped in 07/2023 after loss of boyfriend, recent relapse reported during appointment, see HPI Current medications/effic acy: N/A Previous medication trials: N/A Current/previous therapies: Reportedly follows up with therapy multiple times weekly Examination as documented - see pertinent aspects of office visit documentation. Pertinent diagnostics: UNABLE to assess during appointment today due to patient's emotional state and very pressured speech with notable circumstantiality , tangentiality and some loose associations (see above) [...] another reason to take medications consistently as prescribed/discus sed RECOMMENDATIONS: RESTART/modify medications as prescribed - educated patient/guardian on adverse effects, risks and benefits, as well as alternative treatments Consume well balanced diet, preferably low in saturated fats (solid at room temperature, such as butter, margarine, Crisco, etc) and low in sodium (<2,000mg per day). Consume plenty of fruits/vegetables , healthy grains/whole grains, unsaturated/healt hy fats (liquid at room temperature, such as [...] techniques, such as guided imagery, journaling, aromatherapy, acupuncture/acupr essure, deep breathing, etc. Practice healthy sleep hygiene [...] Continue monitoring symptoms - report persistent or worsening/concern ing symptoms to the office or go to the ER. For mental health CRISIS, please reach out to [phone] ([facility] Suicide and Crisis Lifeline), 911, go to the emergency department, or contact the [facility] Unit/Team. Follow up as scheduled or sooner if necessary. Follow up with PCP and/or other specialists as advised. NEXT STEP: Consider medication adjustments as needed. 09/28/2024 Methamphetamine use (ICD-10 - F15.10) Duration (acute/chronic), stability (controlled/uncon trolled): Chronic, methamphetamine, has been using regularly for last few years, stopped in 07/2023 after loss of boyfriend, recent relapse reported during appointment, see HPI Current medications/effic acy: N/A Previous medication trials: N/A Current/previous therapies: Reportedly follows up with therapy multiple times weekly Examination as documented - see pertinent aspects of office visit documentation. Pertinent diagnostics: UNABLE to assess during appointment today due to patient's emotional state and very pressured speech with notable circumstantiality , tangentiality and some loose associations (see above) [...] another reason to take medications consistently as prescribed/discus sed RECOMMENDATIONS: RESTART/modify medications as prescribed - educated patient/guardian on adverse effects, risks and benefits, as well as alternative treatments Consume well balanced diet, preferably low in saturated fats (solid at room temperature, such as butter, margarine, Crisco, etc) and low in sodium (<2,000mg per day). Consume plenty of fruits/vegetables , healthy grains/whole grains, unsaturated/healt hy fats (liquid at room temperature, such as [...] techniques, such as guided imagery, journaling, aromatherapy, acupuncture/acupr essure, deep breathing, etc. Practice healthy sleep hygiene [...] Continue monitoring symptoms - report persistent or worsening/concern ing symptoms to the office or go to the ER. For mental health CRISIS, please reach out to [phone] (National Suicide and Crisis Lifeline), 911, go to the emergency department, or contact the [facility]/Team. Follow up as scheduled or sooner if necessary. Follow up with PCP and/or other specialists as advised. NEXT STEP: Consider medication adjustments as needed. 08/17/2024 Spinal cord stimulator status (ICD-10 - Z96.89) 07/12/2024 Alcohol abuse (ICD-10 - F10.10) Duration (acute/chronic), stability (controlled/uncon trolled): Chronic, Previously consumed heavily, daily, stopped usually heavily regularly about 3 years ago - reports continued intermittent heavy use Current medications/effic acy: Somewhat Previous medication trials: Naltrexone Current/previous therapies: Follows up with therapy multiple times weekly Examination as documented - see pertinent aspects of office visit documentation. Pertinent diagnostics: UNABLE to assess due to patient not wanting to finish interview today, reqesting to finish interview at follow up Differential diagnoses: RECOMMENDATIONS: Continue medications as prescribed - educated patient/guardian on adverse effects, risks and benefits, as well as alternative treatments Consume well balanced diet, preferably low in saturated fats (solid at room temperature, such as butter, margarine, Crisco, etc) and low in sodium (<2,000mg per day). Consume plenty of fruits/vegetables , healthy grains/whole grains, unsaturated/healt hy fats (liquid at room temperature, such as [...] techniques, such as guided imagery, journaling, aromatherapy, acupuncture/acupr essure, deep breathing, etc. Practice healthy sleep hygiene - maintain regular routine, no caffeine after 1PM, no exercise 1-2 hours prior to bedtime, keep bedroom dark and cool, no TV or electronics while in bed. Consider melatonin as needed. Consider cognitive behavioral therapy for insomnia (CBT-I). Consider/Continue therapy. Continue substance cessation therapy as prescribed by MAT provider Manage co-morbid conditions. Continue monitoring symptoms - report persistent or worsening/concern ing symptoms to the office or go to the ER. For mental health CRISIS, please reach out to [phone] ([employer] Suicide and Crisis Lifeline), 911, go to the emergency department, or contact the [facility] Unit/Team. Follow up as scheduled or sooner if necessary. Follow up with PCP and/or other specialists as advised. NEXT STEP: Continue to make adjustments to medications to assist with mood management. 08/15/2024 Methamphetamine use (ICD-10 - F15.10) Duration (acute/chronic), stability (controlled/uncon trolled): Chronic, methamphetamine, has been using regularly for last few years, stopped in 07/2023 after loss of boyfriend, recent relapse reported during appointment (about 3 weeks ago), see HPI Current medications/effic acy: N/A Previous medication trials: N/A Current/previous therapies: Follows up with therapy multiple times weekly Examination as documented - see pertinent aspects of office visit documentation. Pertinent diagnostics: UNABLE TO ASSESS TODAY, WILL DISCUSS AT FUTURE VISIT Differential diagnoses: Provider and patient had long [...] another reason to take medications consistently as prescribed/discus sed RECOMMENDATIONS: START naltrexone as prescribed - educated patient/guardian on adverse effects, risks and benefits, as well as alternative treatments Continue/modify other medications as prescribed - educated patient/guardian on adverse effects, risks and benefits, as well as alternative treatments Consume well balanced diet, preferably low in saturated fats (solid at room temperature, such as butter, margarine, Crisco, etc) and low in sodium (<2,000mg per day). Consume plenty of fruits/vegetables , healthy grains/whole grains, unsaturated/healt hy fats (liquid at room temperature, such as [...] techniques, such as guided imagery, journaling, aromatherapy, acupuncture/acupr essure, deep breathing, etc. Practice healthy sleep hygiene [...] Continue monitoring symptoms - report persistent or worsening/concern ing symptoms to the office or go to the ER. For mental health CRISIS, please reach out to [phone] ([employer] Suicide and Crisis Lifeline), 911, go to the emergency department, or contact the [facility]/Team. Follow up as scheduled or sooner if necessary. Follow up with PCP and/or other specialists as advised. NEXT STEP: Consider medication adjustments as needed. 05/19/2024 Alcohol abuse (ICD-10 - F10.10) Duration (acute/chronic), stability (controlled/uncon trolled): Chronic, Previously consumed heavily, daily, stopped usually heavily regularly about 3 years ago - reports continued intermittent heavy use Current medications/effic acy: Somewhat Previous medication trials: Naltrexone Current/previous therapies: Follows up with therapy multiple times weekly Examination as documented - see pertinent aspects of office visit documentation. Pertinent diagnostics: UNABLE to assess due to patient not wanting to finish interview today, reqesting to finish interview at follow up Differential diagnoses: RECOMMENDATIONS: Continue medications as prescribed - educated patient/guardian on adverse effects, risks and benefits, as well as alternative treatments Consume well balanced diet, preferably low in saturated fats (solid at room temperature, such as butter, margarine, Crisco, etc) and low in sodium (<2,000mg per day). Consume plenty of fruits/vegetables , healthy grains/whole grains, unsaturated/healt hy fats (liquid at room temperature, such as [...] techniques, such as guided imagery, journaling, aromatherapy, acupuncture/acupr essure, deep breathing, etc. Practice healthy sleep hygiene - maintain regular routine, no caffeine after 1PM, no exercise 1-2 hours prior to bedtime, keep bedroom dark and cool, no TV or electronics while in bed. Consider melatonin as needed. Consider cognitive behavioral therapy for insomnia (CBT-I). Consider/Continue therapy. Continue substance cessation therapy as prescribed by MAT provider Manage co-morbid conditions. Continue monitoring symptoms - report persistent or worsening/concern ing symptoms to the office or go to the ER. For mental health CRISIS, please reach out to [phone] ([employer] Suicide and Crisis Lifeline), 911, go to the emergency department, or contact the [facility]/Team. Follow up as scheduled or sooner if necessary. Follow up with PCP and/or other specialists as advised. NEXT STEP: Continue to make adjustments to medications to assist with mood management. 04/21/2024 Methamphetamine use (ICD-10 - F15.10) Duration (acute/chronic), stability (controlled/uncon trolled): Chronic, methamphetamine, has been using regularly for last few years, stopped in 07/2023 after loss of boyfriend, recent relapse about 1 month ago and again a few days ago - NEVER injected Current medications/effic acy: Somewhat Previous medication trials: see HPI Current/previous therapies: Follows up with therapy multiple times weekly Examination as documented - see pertinent aspects of office visit documentation. Pertinent diagnostics: UDS ordered today - UNABLE to assess due to patient not wanting to finish interview today, reqesting to finish interview at follow up Differential diagnoses: RECOMMENDATIONS: Continue medications as prescribed - educated patient/guardian on adverse effects, risks and benefits, as well as alternative treatments Consume well balanced diet, preferably low in saturated fats (solid at room temperature, such as butter, margarine, Crisco, etc) and low in sodium (<2,000mg per day). Consume plenty of fruits/vegetables , healthy grains/whole grains, unsaturated/healt hy fats (liquid at room temperature, such as [...] techniques, such as guided imagery, journaling, aromatherapy, acupuncture/acupr essure, deep breathing, etc. Practice healthy sleep hygiene - maintain regular routine, no caffeine after 1PM, no exercise 1-2 hours prior to bedtime, keep bedroom dark and cool, no TV or electronics while in bed. Consider melatonin as needed. Consider cognitive behavioral therapy for insomnia (CBT-I). Consider/Continue therapy. Continue substance cessation therapy as prescribed by MAT provider Manage co-morbid conditions. Continue monitoring symptoms - report persistent or worsening/concern ing symptoms to the office or go to the ER. For mental health CRISIS, please reach out to [phone] ([facility] Suicide and Crisis Lif[facility]), 911, go to the emergency department, or contact the [facility]/Team. Follow up as scheduled or sooner if necessary. Follow up with PCP and/or other specialists as advised. NEXT STEP: Continue to make adjustments to medications to assist with mood management. 04/21/2024 Alcohol abuse (ICD-10 - F10.10) Duration (acute/chronic), stability (controlled/uncon trolled): Chronic, Previously consumed heavily, daily, stopped usually heavily regularly about 3 years ago - reports continued intermittent heavy use Current medications/effic acy: Somewhat Previous medication trials: Naltrexone Current/previous therapies: Follows up with therapy multiple times weekly Examination as documented - see pertinent aspects of office visit documentation. Pertinent diagnostics: UDS ordered today - UNABLE to assess due to patient not wanting to finish interview today, reqesting to finish interview at follow up Differential diagnoses: RECOMMENDATIONS: Continue medications as prescribed - educated patient/guardian on adverse effects, risks and benefits, as well as alternative treatments Consume well balanced diet, preferably low in saturated fats (solid at room temperature, such as butter, margarine, Crisco, etc) and low in sodium (<2,000mg per day). Consume plenty of fruits/vegetables , healthy grains/whole grains, unsaturated/healt hy fats (liquid at room temperature, such as [...] techniques, such as guided imagery, journaling, aromatherapy, acupuncture/acupr essure, deep breathing, etc. Practice healthy sleep hygiene - maintain regular routine, no caffeine after 1PM, no exercise 1-2 hours prior to bedtime, keep bedroom dark and cool, no TV or electronics while in bed. Consider melatonin as needed. Consider cognitive behavioral therapy for insomnia (CBT-I). Consider/Continue therapy. Continue substance cessation therapy as prescribed by MAT provider Manage co-morbid conditions. Continue monitoring symptoms - report persistent or worsening/concern ing symptoms to the office or go to the ER. For mental health CRISIS, please reach out to [phone] ([facility] Suicide and Crisis [facility]), 911, go to the emergency department, or contact the [facility]/Team. Follow up as scheduled or sooner if necessary. Follow up with PCP and/or other specialists as advised. NEXT STEP: Continue to make adjustments to medications to assist with mood management. 05/19/2024 Nicotine dependence, unspecified, uncomplicated (ICD-10 - F17.200) Duration (acute/chronic), stability (controlled/uncon trolled): Chronic, sometimes will smoke cigar Current medications/effic acy: N/A Previous medication trials: N/A Current/previous therapies: Follows up with therapy multiple times weekly Examination as documented - see pertinent aspects of office visit documentation. Pertinent diagnostics: UNABLE to assess due to patient not wanting to finish interview today, reqesting to finish interview at follow up Differential diagnoses: RECOMMENDATIONS: Consider substance cessation therapy as needed - contact office if desiring medication assisted therapy. Manage co-morbid conditions. Continue monitoring symptoms - report persistent or worsening/concern ing symptoms to the office or go to the ER. For mental health CRISIS, please reach out to [phone] ([place] [facility]), 911, go to the emergency department, or contact the [facility] Crisis Unit/Team. Follow up as scheduled or sooner if necessary. Follow up with PCP and/or other specialists as advised. NEXT STEP: Consider MAT as needed. 07/12/2024 Nicotine dependence, unspecified, uncomplicated (ICD-10 - F17.200) Duration (acute/chronic), stability (controlled/uncon trolled): Chronic, sometimes will smoke cigar Current medications/effic acy: N/A Previous medication trials: N/A Current/previous therapies: Follows up with therapy multiple times weekly Examination as documented - see pertinent aspects of office visit documentation. Pertinent diagnostics: UNABLE to assess due to patient not wanting to finish interview today, reqesting to finish interview at follow up Differential diagnoses: RECOMMENDATIONS: Consider substance cessation therapy as needed - contact office if desiring medication assisted therapy. Manage co-morbid conditions. Continue monitoring symptoms - report persistent or worsening/concern ing symptoms to the office or go to the ER. For mental health CRISIS, please reach out to [phone] ([place] [facility]), 911, go to the emergency department, or contact the [facility] Crisis Unit/Team. Follow up as scheduled or sooner if necessary. Follow up with PCP and/or other specialists as advised. NEXT STEP: Consider MAT as needed. 08/15/2024 Alcohol abuse (ICD-10 - F10.10) Duration (acute/chronic), stability (controlled/uncon trolled): Chronic, Previously consumed heavily, daily, stopped usually heavily regularly about 3 years ago - reports continued intermittent heavy use Current medications/effic acy: N/A Previous medication trials: Naltrexone Current/previous therapies: Follows up with therapy multiple times weekly Examination as documented - see pertinent aspects of office visit documentation. Pertinent diagnostics: UNABLE TO ASSESS TODAY, WILL DISCUSS AT FUTURE VISIT Differential diagnoses: Provider and patient had long [...] another reason to take medications consistently as prescribed/discus sed RECOMMENDATIONS: START naltrexone as prescribed - educated patient/guardian on adverse effects, risks and benefits, as well as alternative treatments Continue/modify other medications as prescribed - educated patient/guardian on adverse effects, risks and benefits, as well as alternative treatments Consume well balanced diet, preferably low in saturated fats (solid at room temperature, such as butter, margarine, Crisco, etc) and low in sodium (<2,000mg per day). Consume plenty of fruits/vegetables , healthy grains/whole grains, unsaturated/healt hy fats (liquid at room temperature, such as [...] techniques, such as guided imagery, journaling, aromatherapy, acupuncture/acupr essure, deep breathing, etc. Practice healthy sleep hygiene [...] Continue monitoring symptoms - report persistent or worsening/concern ing symptoms to the office or go to the ER. For mental health CRISIS, please reach out to [phone] ([facility]), 911, go to the emergency department, or contact the [facility] Crisis Unit/Team. Follow up as scheduled or sooner if necessary. Follow up with PCP and/or other specialists as advised. NEXT STEP: Consider medication adjustments as needed. 09/28/2024 Alcohol abuse (ICD-10 - F10.10) Duration (acute/chronic), stability (controlled/uncon trolled): Chronic, Previously consumed heavily, daily, stopped usually heavily regularly about 3 years ago - reports continued intermittent heavy use Current medications/effic acy: N/A Previous medication trials: Naltrexone Current/previous therapies: Follows up with therapy multiple times weekly Examination as documented - see pertinent aspects of office visit documentation. Pertinent diagnostics: UNABLE to assess during appointment today due to patient's emotional state and very pressured speech with notable circumstantiality , tangentiality and some loose associations (see above) [...] another reason to take medications consistently as prescribed/discus sed RECOMMENDATIONS: RESTART/modify medications as prescribed - educated patient/guardian on adverse effects, risks and benefits, as well as alternative treatments Consume well balanced diet, preferably low in saturated fats (solid at room temperature, such as butter, margarine, Crisco, etc) and low in sodium (<2,000mg per day). Consume plenty of fruits/vegetables , healthy grains/whole grains, unsaturated/healt hy fats (liquid at room temperature, such as [...] techniques, such as guided imagery, journaling, aromatherapy, acupuncture/acupr essure, deep breathing, etc. Practice healthy sleep hygiene [...] Continue monitoring symptoms - report persistent or worsening/concern ing symptoms to the office or go to the ER. For mental health CRISIS, please reach out to [phone] ([facility]), 911, go to the emergency department, or contact the [facility] Crisis Unit/Team. Follow up as scheduled or sooner if necessary. Follow up with PCP and/or other specialists as advised. NEXT STEP: Consider medication adjustments as needed. 08/17/2024 Right foot pain (ICD-10 - M79.671) 11/22/2024 Alcohol abuse (ICD-10 - F10.10) Duration (acute/chronic), stability (controlled/uncon trolled): Chronic, Previously consumed heavily, daily, stopped usually heavily regularly about 3 years ago - reports continued intermittent heavy use Current medications/effic acy: N/A Previous medication trials: Naltrexone Current/previous therapies: Follows up with therapy multiple times weekly Examination as documented - see pertinent aspects of office visit documentation. Pertinent diagnostics: UNABLE to assess during appointment today due to patient's emotional state and very pressured speech with notable circumstantiality , tangentiality and some loose associations (see above) [...] another reason to take medications consistently as prescribed/discus sed RECOMMENDATIONS: RESTART/modify medications as prescribed - educated patient/guardian on adverse effects, risks and benefits, as well as alternative treatments Consume well balanced diet, preferably low in saturated fats (solid at room temperature, such as butter, margarine, Crisco, etc) and low in sodium (<2,000mg per day). Consume plenty of fruits/vegetables , healthy grains/whole grains, unsaturated/healt hy fats (liquid at room temperature, such as [...] techniques, such as guided imagery, journaling, aromatherapy, acupuncture/acupr essure, deep breathing, etc. Practice healthy sleep hygiene [...] Continue monitoring symptoms - report persistent or worsening/concern ing symptoms to the office or go to the ER. For mental health CRISIS, please reach out to [phone] ([facility]), 911, go to the emergency department, or contact the [facility] Crisis Unit/Team. Follow up as scheduled or sooner if necessary. Follow up with PCP and/or other specialists as advised. NEXT STEP: Consider medication adjustments as needed. 12/27/2024 Alcohol abuse (ICD-10 - F10.10) Duration (acute/chronic), stability (controlled/uncon trolled): Chronic, Previously consumed heavily, daily, stopped usually heavily regularly about 3 years ago - reports continued intermittent heavy use Current medications/effic acy: N/A Previous medication trials: Naltrexone Current/previous therapies: Follows up with therapy multiple times weekly Examination as documented - see pertinent aspects of office visit documentation. Pertinent diagnostics: UNABLE to assess during appointment today due to patient's emotional state and very pressured speech with notable circumstantiality , tangentiality and some loose associations (see above) [...] another reason to take medications consistently as prescribed/discus sed RECOMMENDATIONS: RESTART/modify medications as prescribed - educated patient/guardian on adverse effects, risks and benefits, as well as alternative treatments Consume well balanced diet, preferably low in saturated fats (solid at room temperature, such as butter, margarine, Crisco, etc) and low in sodium (<2,000mg per day). Consume plenty of fruits/vegetables , healthy grains/whole grains, unsaturated/healt hy fats (liquid at room temperature, such as [...] techniques, such as guided imagery, journaling, aromatherapy, acupuncture/acupr essure, deep breathing, etc. Practice healthy sleep hygiene [...] Continue monitoring symptoms - report persistent or worsening/concern ing symptoms to the office or go to the ER. For mental health CRISIS, please reach out to [phone] ([facility] [facility]), 911, go to the emergency department, or contact the [facility] Crisis Unit/Team. Follow up as scheduled or sooner if necessary. Follow up with PCP and/or other specialists as advised. NEXT STEP: Consider medication adjustments as needed. 02/21/2025 Alcohol abuse (ICD-10 - F10.10) Duration (acute/chronic), stability (controlled/uncon trolled): Chronic, Previously consumed heavily, daily, stopped usually heavily regularly about 3 years ago - reports continued intermittent heavy use Current medications/effic acy: N/A Previous medication trials: Naltrexone Current/previous therapies: Follows up with therapy multiple times weekly Examination as documented - see pertinent aspects of office visit documentation. Pertinent diagnostics: UNABLE to assess during appointment today due to patient's emotional state and very pressured speech with notable circumstantiality , tangentiality and some loose associations (see above) [...] another reason to take medications consistently as prescribed/discus sed RECOMMENDATIONS: RESTART/modify medications as prescribed - educated patient/guardian on adverse effects, risks and benefits, as well as alternative treatments Consume well balanced diet, preferably low in saturated fats (solid at room temperature, such as butter, margarine, Crisco, etc) and low in sodium (<2,000mg per day). Consume plenty of fruits/vegetables , healthy grains/whole grains, unsaturated/healt hy fats (liquid at room temperature, such as [...] techniques, such as guided imagery, journaling, aromatherapy, acupuncture/acupr essure, deep breathing, etc. Practice healthy sleep hygiene [...] Continue monitoring symptoms - report persistent or worsening/concern ing symptoms to the office or go to the ER. For mental health CRISIS, please reach out to [phone] ([facility]), 911, go to the emergency department, or contact the [facility] Unit/Team. Follow up as scheduled or sooner if necessary. Follow up with PCP and/or other specialists as advised. NEXT STEP: Consider medication adjustments as needed. 04/09/2025 Alcohol abuse (ICD-10 - F10.10) Duration (acute/chronic), stability (controlled/uncon trolled): Chronic, Previously consumed heavily, daily, stopped usually heavily regularly about 3 years ago - reports continued intermittent heavy use Current medications/effic acy: N/A Previous medication trials: Naltrexone Current/previous therapies: Follows up with therapy multiple times weekly Examination as documented - see pertinent aspects of office visit documentation. Pertinent diagnostics: UNABLE to assess during appointment today due to patient's emotional state and very pressured speech with notable circumstantiality , tangentiality and some loose associations (see above) [...] another reason to take medications consistently as prescribed/discus sed RECOMMENDATIONS: RESTART/modify medications as prescribed - educated patient/guardian on adverse effects, risks and benefits, as well as alternative treatments Consume well balanced diet, preferably low in saturated fats (solid at room temperature, such as butter, margarine, Crisco, etc) and low in sodium (<2,000mg per day). Consume plenty of fruits/vegetables , healthy grains/whole grains, unsaturated/healt hy fats (liquid at room temperature, such as [...] techniques, such as guided imagery, journaling, aromatherapy, acupuncture/acupr essure, deep breathing, etc. Practice healthy sleep hygiene [...] Continue monitoring symptoms - report persistent or worsening/concern ing symptoms to the office or go to the ER. For mental health CRISIS, please reach out to [phone] ([facility]), 911, go to the emergency department, or contact the [facility]/Team. Follow up as scheduled or sooner if necessary. Follow up with PCP and/or other specialists as advised. NEXT STEP: Consider medication adjustments as needed. 04/09/2025 Nicotine dependence, unspecified, uncomplicated (ICD-10 - F17.200) Duration (acute/chronic), stability (controlled/uncon trolled): Chronic, sometimes will smoke cigar Current medications/effic acy: N/A Previous medication trials: N/A Current/previous therapies: Follows up with therapy multiple times weekly Examination as documented - see pertinent aspects of office visit documentation. Pertinent diagnostics: UNABLE to assess during appointment today due to patient's emotional state and very pressured speech with notable circumstantiality , tangentiality and some loose associations (see above) [...] another reason to take medications consistently as prescribed/discus sed RECOMMENDATIONS: Consider substance cessation therapy as needed - contact office if desiring medication assisted therapy. Manage co-morbid conditions. Continue monitoring symptoms - report persistent or worsening/concern ing symptoms to the office or go to the ER. For mental health CRISIS, please reach out to [phone] ([facility]), 911, go to the emergency department, or contact the [facility]/Team. Follow up as scheduled or sooner if necessary. Follow up with PCP and/or other specialists as advised. NEXT STEP: Consider MAT as needed. 02/21/2025 Nicotine dependence, unspecified, uncomplicated (ICD-10 - F17.200) Duration (acute/chronic), stability (controlled/uncon trolled): Chronic, sometimes will smoke cigar Current medications/effic acy: N/A Previous medication trials: N/A Current/previous therapies: Follows up with therapy multiple times weekly Examination as documented - see pertinent aspects of office visit documentation. Pertinent diagnostics: UNABLE to assess during appointment today due to patient's emotional state and very pressured speech with notable circumstantiality , tangentiality and some loose associations (see above) [...] another reason to take medications consistently as prescribed/discus sed RECOMMENDATIONS: Consider substance cessation therapy as needed - contact office if desiring medication assisted therapy. Manage co-morbid conditions. Continue monitoring symptoms - report persistent or worsening/concern ing symptoms to the office or go to the ER. For mental health CRISIS, please reach out to [phone] ([facility]), 911, go to the emergency department, or contact the [facility] Unit/Team. Follow up as scheduled or sooner if necessary. Follow up with PCP and/or other specialists as advised. NEXT STEP: Consider MAT as needed. 11/22/2024 Restless leg syndrome (ICD-10 - G25.81) 12/27/2024 Nicotine dependence, unspecified, uncomplicated (ICD-10 - F17.200) Duration (acute/chronic), stability (controlled/uncon trolled): Chronic, sometimes will smoke cigar Current medications/effic acy: N/A Previous medication trials: N/A Current/previous therapies: Follows up with therapy multiple times weekly Examination as documented - see pertinent aspects of office visit documentation. Pertinent diagnostics: UNABLE to assess during appointment today due to patient's emotional state and very pressured speech with notable circumstantiality , tangentiality and some loose associations (see above) [...] another reason to take medications consistently as prescribed/discus sed RECOMMENDATIONS: Consider substance cessation therapy as needed - contact office if desiring medication assisted therapy. Manage co-morbid conditions. Continue monitoring symptoms - report persistent or worsening/concern ing symptoms to the office or go to the ER. For mental health CRISIS, please reach out to [phone] ([facility]), 911, go to the emergency department, or contact the [facility] Unit/Team. Follow up as scheduled or sooner if necessary. Follow up with PCP and/or other specialists as advised. NEXT STEP: Consider MAT as needed. 08/17/2024 Nicotine dependence, unspecified, uncomplicated (ICD-10 - F17.200) 09/28/2024 Nicotine dependence, unspecified, uncomplicated (ICD-10 - F17.200) Duration (acute/chronic), stability (controlled/uncon trolled): Chronic, sometimes will smoke cigar Current medications/effic acy: N/A Previous medication trials: N/A Current/previous therapies: Follows up with therapy multiple times weekly Examination as documented - see pertinent aspects of office visit documentation. Pertinent diagnostics: UNABLE to assess during appointment today due to patient's emotional state and very pressured speech with notable circumstantiality , tangentiality and some loose associations (see above) [...] another reason to take medications consistently as prescribed/discus sed RECOMMENDATIONS: Consider substance cessation therapy as needed - contact office if desiring medication assisted therapy. Manage co-morbid conditions. Continue monitoring symptoms - report persistent or worsening/concern ing symptoms to the office or go to the ER. For mental health CRISIS, please reach out to [phone] ([facility]), 911, go to the emergency department, or contact the [facility]/Team. Follow up as scheduled or sooner if necessary. Follow up with PCP and/or other specialists as advised. NEXT STEP: Consider MAT as needed. 11/22/2024 Nicotine dependence, unspecified, uncomplicated (ICD-10 - F17.200) Duration (acute/chronic), stability (controlled/uncon trolled): Chronic, sometimes will smoke cigar Current medications/effic acy: N/A Previous medication trials: N/A Current/previous therapies: Follows up with therapy multiple times weekly Examination as documented - see pertinent aspects of office visit documentation. Pertinent diagnostics: UNABLE to assess during appointment today due to patient's emotional state and very pressured speech with notable circumstantiality , tangentiality and some loose associations (see above) [...] another reason to take medications consistently as prescribed/discus sed RECOMMENDATIONS: Consider substance cessation therapy as needed - contact office if desiring medication assisted therapy. Manage co-morbid conditions. Continue monitoring symptoms - report persistent or worsening/concern ing symptoms to the office or go to the ER. For mental health CRISIS, please reach out to [phone] ([facility]), 911, go to the emergency department, or contact the [facility]/Team. Follow up as scheduled or sooner if necessary. Follow up with PCP and/or other specialists as advised. NEXT STEP: Consider MAT as needed. 05/19/2024 Encounter for immunization (ICD-10 - Z23) Ordered per standing orders for administering influenza vaccine to adults. 08/15/2024 Nicotine dependence, unspecified, uncomplicated (ICD-10 - F17.200) Duration (acute/chronic), stability (controlled/uncon trolled): Chronic, sometimes will smoke cigar Current medications/effic acy: N/A Previous medication trials: N/A Current/previous therapies: Follows up with therapy multiple times weekly Examination as documented - see pertinent aspects of office visit documentation. Pertinent diagnostics: UNABLE to assess due to patient not wanting to finish interview today, reqesting to finish interview at follow up Differential diagnoses: Provider and patient had long [...] another reason to take medications consistently as prescribed/discus sed RECOMMENDATIONS: Consider substance cessation therapy as needed - contact office if desiring medication assisted therapy. Manage co-morbid conditions. Continue monitoring symptoms - report persistent or worsening/concern ing symptoms to the office or go to the ER. For mental health CRISIS, please reach out to [phone] ([facility]), 911, go to the emergency department, or contact the [facility]/Team. Follow up as scheduled or sooner if necessary. Follow up with PCP and/or other specialists as advised. NEXT STEP: Consider MAT as needed. 04/21/2024 Nicotine dependence, unspecified, uncomplicated (ICD-10 - F17.200) Duration (acute/chronic), stability (controlled/uncon trolled): Chronic, sometimes will smoke cigar Current medications/effic acy: N/A Previous medication trials: N/A Current/previous therapies: Follows up with therapy multiple times weekly Examination as documented - see pertinent aspects of office visit documentation. Pertinent diagnostics: UDS ordered today - UNABLE to assess due to patient not wanting to finish interview today, reqesting to finish interview at follow up Differential diagnoses: RECOMMENDATIONS: Consider substance cessation therapy as needed - contact office if desiring medication assisted therapy. Manage co-morbid conditions. Continue monitoring symptoms - report persistent or worsening/concern ing symptoms to the office or go to the ER. For mental health CRISIS, please reach out to [phone] ([facility]), 911, go to the emergency department, or contact the [facility] Unit/Team. Follow up as scheduled or sooner if necessary. Follow up with PCP and/or other specialists as advised. NEXT STEP: Consider MAT as needed. 12/27/2024 Restless leg syndrome (ICD-10 - G25.81) 02/21/2025 Restless leg syndrome (ICD-10 - G25.81) 04/09/2025 Restless leg syndrome (ICD-10 - G25.81) 08/17/2024 Other Continue with a ll specialists as scheduled. 02/27/2025 Other Patient agrees to take medication as prescribed. Discussed medication side effects, adverse effects, risks, benefits, as well as interactions. Encouraged non-use of alcohol, methamphetamines, and other illicit substances. Has naloxone. Recommended participation in recovery groups and/or counseling services. May contact office with questions or concerns. 03/27/2025 Other Discussed medication side effects, adverse effects, risks, benefits, as well as interactions. Encouraged non-use of opioids. Encouraged continued participation in recovery groups to help aide in sobriety. Patient provided with Vivitrol alert bracelet, necklace, and wallet card. Agrees to return in 28 days for next Vivitrol injection. Patient may contact office with questions or concerns. 03/29/2025 Other Chronic pain affecting multiple joints including hips, shoulder, wrists, and feet. Pain is sometimes more tolerable but limits movement and daily activities. Patient desires formal recognition and documentation of arthritis. Recent wrist injection and ongoing physical therapy for back discussed. Financial barriers to gym membership noted; patient considering water aerobics, rnadi chi, yoga, and Pilates for muscle strengthening. - Continue anti-inflammatory medication for pain management. - Encourage muscle strengthening activities such as water aerobics, randi chi, yoga, and Pilates. - Discuss financial barriers to gym membership and suggest contacting insurance for possible assistance. Plan Of Treatment Pending Test Test Name Order Date Xray : Hip and thigh, right 03/29/2025 Xray : Hand, left 12/06/2024 Xray : Hand, right 12/06/2024 Xray : Shoulder, right 03/29/2025 Xray : Foot, left 3v 09/27/2024 Xray : Foot, right 3v 09/27/2024 Future Test Test Name Order Date Mammogram, Bilateral Screening with ABUS as needed 09/27/2024 Insurance Providers Payer Name Payer Address Payer Phone Subscriber Number Group Number Insured Name Patient Relationship to Insured Coverage Start Date Coverage End Date [facility] Attn Claims Department [address] [address] [phone] [id number] Syd Isidro Self - patient is the insured 9 MED[address]ID [address] [place] [address] [id number] Syd Isidro Self - patient is the insured 8 8 [place] [employer] [facility] Attn Claims Department [address] [address] [phone] [id number] Syd Isidro Self - patient is the insured 0 [employer] Attn Claims Department [address] [address] [phone] [id number] Syd Isidro Self - patient is the insured 0 [employer] Attn Claims Department [address] [address] [phone] [id number] Syd Isidro Self - patient is the insured Medications Administered Medication Instructions Date of Administration Dosage Notes Vivitrol 07/11/2020 380 mg Manufact Alker leeann, patient tolerated well. Vivitrol 08/08/2020 380 mg Manufact by [place] whaley. pt edenilson well. Vivitrol 09/04/2020 380 mg Manufact by [place] whaley Pt edenilson well. Vivitrol 10/01/2020 380 mg Driller Multiple Spindle-Maira Pt tolerated injection well. Pt. voiced no questions or concerns Vivitrol 10/30/2020 380 mg Pt tolerated i njection well. Pt voiced no questions or concerns. Vivitrol 12/04/2020 380 mg Patient tolera anamika injection well. Patient had no questions or concerns today. Vivitrol 01/01/2021 380 mg Patient tolera anamika injection well. Patient voiced no concerns or complaints. Vivitrol 01/29/2021 380 mg Patient tolera anamika injection well. Patient voiced no concerns or questions at this time. Vivitrol 02/26/2021 380 mg Pt tolerated i njection well. Patient voiced no complaints and had no questions or concerns. Vivitrol 03/26/2021 380 mg Patient tolera anamika injection well. Patient voiced no concerns and had no questions. Vivitrol 05/01/2021 380 mg Patient tolera anamika inj well. Patient voiced no complaints and had no questions or concerns. Vivitrol 05/29/2021 380 mg Pt tolerated i njection well. Patient voiced no complaints and had no questions or concerns at office visit. Vivitrol 06/26/2021 380 mg Pt. Tolerated well. No questions or concerns at this time. Vivitrol 08/12/2021 380 mg Pt. tolerated well and verbalized understanding to massage injection site well. No question or concerns at this time. Vivitrol 09/16/2021 380 mg Pt. tolerated well and verbalized understanding to massage injection site well. No questions or concerns at this time. Vivitrol 04/03/2022 380 mg Pt. tolerated well. No questions or concerns at this time. Vivitrol 05/06/2022 380 mg Pt. tolerated well. No questions/concerns at this time. Pt. given a reminder card with next due Vivitrol injection. Vivitrol 08/25/2023 380 mg Pt. tolerated well. No questions/concerns at this time. 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 Pt tolerated well with minimal discomfort observed or reported. Vivitrol 03/21/2024 380 mg Hesham, Alfredo IVORY 03/21/2024 09:43:44 AM CDT >Pt tolerated well. 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 Medical (General) History Medical History History ICD Code pheochromocytoma renal cell carcinoma anxiety depression hypertension alcohol use disorder methamphetamine use Arthritis Bilateral Carpal Tunnel Hx kidney cancer ADD PTSD Surgical History Surgery Date(Month/Year) GASTRIC BYPASS FOR OBESITY EGD 05/2022 neuro transplant took out 09/2024 Hospitalization History Reason Date(Month/Year) [facility] for ETOH 06/2020
--- OUTSIDE RECORDS SUMMARY | 2025-04-10 11:23 | XMS_ITS | Clinical Summary ---
Author Organization [facility] Address [address] [address] Care Team Providers Care Motel Clerk Name Role Phone Patrice Hanna APRN-FIRE FIGHTER Primary Care Provide r Source Comments [facility],non-owned Affiliates and Associated Physician Practices is amultiple site organization consisting of ambulatory clinics and hospital sitesin [place], [place], [place] and [place]. This disclosure is being madepursuant to the Care Everywhere program and may not contain all information available regarding this patient. Last updated 18.[facility] Allergies Active Allergy Reactions Criticality Noted Date Comments Atenolol Other Low 08/07/2020 Reaction: Other Clarithromycin Unknown 04/27/2018 Elbow swelled up when using an inhaler of biaxin Ibuprofen Bleeding 03/20/2021 Kidney issues Medications * Be aware that medications may not be up to date on this document. Alwaysverify current medications with the patient. losartan (COZAAR) 100 MG tablet Take 50 mg by mouth once daily 8 Active Multiple Vitamin (MULTI-VITAMINS ) TABS Take 1 tablet by mouth once daily 8 Active cyanocobalamin (VITAMIN B-12) 100 MCG tablet Take 100 mcg by mouth once daily Active cloNIDine (CATAPRES) 0.1 MG tablet Take 0.1 mg by mouth once daily 9 Active Melatonin 3 MG Take 3 mg by mouth at bedtime Active buPROPion XL 24hr (WELLBUTRIN-XL) 150 MG tablet 150 mg every morning 1 Active calcium carbonate-vitam in D 600-400 MG-UNIT tablet calcium carbonate 600 mg (1,500 mg)-vitamin D3 400 unit tablet TAKE 1 TABLET BY MOUTH DAILY Active folic acid (FOLVITE) 1 MG tablet once daily 1 Active hydrOXYzine pamoate (VISTARIL) 50 MG capsule 1 Active traZODone (DESYREL) 150 MG tablet nightly as needed 1 Active naltrexone (REVIA) 50 MG tablet Take 50 mg by mouth once daily Taking 1 twice daily Active DULoxetine (CYMBALTA) 60 MG capsule Take 60 mg by mouth 2 times daily Active buPROPion XL 24hr (WELLBUTRIN-XL) 300 MG tablet Take 300 mg by mouth every morning Active clotrimazole (LOTRIMIN AF) 1 % cream Apply to affected area 2 times daily 30 g 1 2 Active vitamin D, ergocalciferol, (DRISDOL) 1.25 MG (20570 UT) capsuleIndicati ons:Vitamin D Deficiency Take 1 (one) capsule by mouth every 7 days Reasons: Vitamin D Deficiency 4 capsule 3 2 Active sucralfate (CARAFATE) 1 GM tablet Take 1 (one) tablet by mouth 4 times daily - before meals & nightly Crush tablet prior to taking 120 tablet 2 2 Active omeprazole (PRILOSEC) 40 MG capsule Take 1 (one) capsule by mouth 2 times daily, before breakfast and supper 60 capsule 3 2 Active Active Problems Problem Noted Date Diagnosed Date Obesity, Class I, BMI 30-34.9 07/23/2021 History of bariatric surgery 07/23/2021 History of substance abuse 07/23/2021 Midline cystocele 09/27/2018 Stress incontinence, female 09/27/2018 Nocturia 09/27/2018 Urge incontinence 09/27/2018 Immunizations Immunization Administration Dates Next Due Zeferino Zimmerman primary monovalent 12+ yr 0.5mL ,09/19/2020 Family History Medical History Relation Name Comments Hyperlipidemia Brother Hypertension Brother CAD (Coronary Artery Disease) Father Heart Failure Father Hyperlipidemia Father Hypertension Father Hyperlipidemia Maternal Grandfather Hypertension Maternal Grandfather Hyperlipidemia Maternal Grandmother Hypertension Maternal Grandmother CAD (Coronary Artery Disease) Mother CVA Mother Depression Mother Heart Failure Mother Hypertension Mother Hyperlipidemia Paternal Grandfather Hypertension Paternal Grandfather Hyperlipidemia Paternal Grandmother Hypertension Paternal Grandmother Cancer - Lung Sister Down's Syndrome Sister Hyperlipidemia Sister Hypertension Sister Thyroid Disease Sister Relation Name Status Comments Brother Father Maternal Grandfather Maternal Grandmother Mother Paternal Grandfather Paternal Grandmother Sister Social History Tobacco Use Types Packs/Day Years Used Date Smoking Tobacco: Some Days Cigarettes 0.1 2 Cigars Smokeless Tobacco: Never Alcohol Use Standard Drinks/Week Comments Yes 0 (1 standard drink = 0.6 oz pur e alcohol) rare Comments No Sex and Gender Information Value Date Recorded Sex Assigned at Not on file 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 Gender Identity Not on file Sexual Orientation Not on file Last Filed Vital Signs Vital Sign Reading Time Taken Comments Blood Pressure 138/88 09/19/2021 10:11 AM CDT Pulse 84 09/19/2021 10:11 AM CDT Temperature 36.8 C (98.2 F) 09/19/2021 10:11 AM CDT Respiratory Rate 20 09/19/2021 10:1 1 AM CDT Oxygen Saturation 99% 09/19/2021 10: 11 AM CDT Inhaled Oxygen Concentration - - Weight 94.3 kg (207 lb 12.8 oz) 022 10:11 AM CDT Height 165.1 cm (5' 5) 09/19/2021 10:1 1 AM CDT Body Mass Index 34.58 09/19/2021 10:11 AM CDT Plan of Treatment Health Maintenance Due Date Last Done Comments COLOGUARD (AGES 45-75) - COL ON CA SCREENING 1969 CT COLONOGRAPHY - COLON CA SCREENING 1969 FIT - COLON CA SCREENING 1969 FLEX SIG - COLON CA SCREENING 1969 HIV SCREENING 1984 HEPATITIS C SCREENING 08/14/1987 DTAP/TDAP/TD VACCINES (1 - Tdap) 1988 HEPATITIS B VACCINE (1 of 3 - 19+ 3-dose series) 1988 PNEUMOCOCCAL VACCINE 50+ (1 of 2 - PCV) 1988 PAP SMEAR 1990 ZOSTER VACCINE (1 of 2) 08/19/2019 MAMMOGRAM 10/18/2020 10/18/2018 DEPRESSION SCREENING 06/14/2024 SCREENING FOR DIABETES 08/29/2024 08/29/2021 COVID-19 VACCINE (3 - 2024-2 6 season) 2025 10/17/2020, 09/19/2020 INFLUENZA VACCINE (#1) 2025 COLONOSCOPY - COLON CA SCREENING 08/29/2026 08/29/2021, 04/30/2021 Colorectal Cancer Screening 08/29/2026 LIPID TESTING 08/29/2026 08/29/2021 COLON MONITORING 08/30/2031 08/29/2021, 04/30/2021 HIB VACCINE Aged Out No longer eligi ble based on patient's age to complete this topic HPV VACCINE Aged Out No longer eligi ble based on patient's age to complete this topic MENINGOCOCCAL (Group B) VACCINE SHARED DECISION-MAKING Aged Out No longer eligible based on patient's age to complete this topic MENINGOCOCCAL GROUPS A/C/Y/W VACCINE Aged Out No longer eligible b ased on patient's age to complete this topic Procedures Procedure Name Priority Date/Time Associated Diagnosis Comments COMPREHENSIVE METABOLIC PANEL Routine 08/29/2021 11:00 AM CDT Status post gastric bypass for obesity LIPID PROFILE Routine 08/29/2021 11:00 AM CDT Status post gastric bypass for obesity MAMMO BILAT SCREENING Routine 10/18/2018 10:28 AM CDT Intramural leiomyoma of uterus Breast cancer screening from Last 3 Months or Most Recently Relevant to Health Maintenance Results * (ABNORMAL) COMPREHENSIVE METABOLIC PANEL (08/29/2021 11:00 AM CDT) [facility] Glucose 90 70 - 125 mg/dL 08/29/2021 11:42 AM CDT [facility] Sodium 141 136 - 145 mmol/L 08/29/2021 11:42 AM CDT [facility] Potassium 3.7 3.4 - 4.5 mmol/L 08/29/2021 11:42 AM CDT [facility] Chloride 109(H) 98 - 107 mmol/L 08/29/2021 11:42 AM [facility] CO2 25 22 - 29 mmol/L 08/29/2021 11:42 AM [facility] Calcium 8.6 8.4 - 10.2 mg/dL 08/29/2021 11:42 AM [facility] Anion Gap 11 10 - 20 mmol/L 08/29/2021 11:42 AM [facility] BUN 7.2(L) 9.8 - 20.1 mg/dL 08/29/2021 11:42 AM [facility] Creatinine 0.72 0.57 - 1.11 mg/dL 08/29/2021 11:42 AM [facility] eGFR by MDRD >60 >60 mL/min/1.7 3m2 08/29/2021 11:42 AM [facility] eGFR by MDRD >60 >60 mL/min/1.7 3m2 08/29/2021 11:42 AM [facility] Alkaline Phosphatase 48 40 - 150 U/L 08/29/2021 11:42 AM [facility] ALT 18 5 - 55 U/L 08/29/2021 11:42 AM [facility] AST 19 5 - 34 U/L 08/29/2021 11:42 AM [facility] Protein Total 6.4 6.4 - 8.3 gm/dL 08/29/2021 11:42 AM [facility] Albumin 3.5 3.5 - 5.0 gm/dL 08/29/2021 11:42 AM [facility] Globulin Total 2.9 2.6 - 4.0 gm/dL 08/29/2021 11:42 AM [facility] Albumin/Globulin Ratio 1.2 0.9 - 1.6 08/29/2021 11:42 AM [facility] Bilirubin Total 0.4 0.2 - 1.2 mg/dL 08/29/2021 11:42 AM [facility] Blood BLOOD SPECIMEN / Unknown Lab Venipuncture / Unknown 08/29/2021 11:00 AM CDT 08/29/2021 11:17 AM T Aruna Patel DO LAB - CHEMISTRY ORDERABLES Fi nal Result [facility] [address] * LIPID PROFILE (08/29/2021 11:00 AM CDT) Cholesterol 188 <200 mg/dL 08/29/2021 11:42 AM CDT [facility] Triglycerides 146 <150 mg/dL 08/29/2021 11:42 AM CDT [facility] HDL Cholesterol 61 >40 mg/dL 2 11:42 AM CDT [facility] Chol HDL Ratio 3.1 1.0 - 6.0 08/29/2021 11:42 AM CDT [facility] LDL Calculated 98 65 - 130 mg/dL 08/29/2021 11:42 AM CDT [facility] VLDL Calculated 29 <=30 mg/dL 2 11:42 AM CDT [facility] Blood BLOOD SPECIMEN / Unknown Lab Venipuncture / Unknown 08/29/2021 11:00 AM CDT 08/29/2021 11:17 AM CDT Narrative [facility] - 08/29/2021 11:42 AM CDT Lipid Profile Comment: CHOLESTEROL LEVEL..................CLINICAL INTERPRETATION LESS THAN 200 MG/DL..............................DESIRABLE 200-239 MG/DL..............................BORDERLINE HIGH GREATER THAN 240 MG/DL................................HIGH LDL-CHOLESTEROL LEVEL..............CLINICAL INTERPRETATION LESS THAN 100 MG/DL................................OPTIMAL 100-129 MG/DL.................................NEAR OPTIMAL GREATER THAN 160 MG/DL...........................HIGH RISK HDL RISK LEVEL GREATER THEN 60 MG/DL............................DECREASED 40-60 MG/DL........................................AVERAGE LESS THAN 40 MG/DL...............................INCREASED TRIGLYCERIDE LEVEL..................CLINICAL INTERPRETATION LESS THAN 150 MG/DL...............................DESIRABLE 150-199 MG/DL...............................BORDERLINE HIGH 200-499 MG/DL..........................................HIGH GREATER THAN 500..................................VERY HIGH THE NATIONAL CHOLESTEROL EDUCATION PROGRAM HAS SET THE ABOVE GUIDELINES (REFERANCE VALUES) FOR CHOLESTEROL AND HDL. RISK ASSOCIATED WITH CHOLESTEROL/HDL RATIOS RISK....................MALE RATIO.............FEMALE RATIO 1/2 AVERAGE.................<3.4.......................<3.3 LOW RISK.................... 4.0 ...................... 3.8 AVERAGE..................... 5.0 ...................... 4.5 2X AVERAGE.................. 9.5 ...................... 7.0 3X AVERAGE...................>23........................>11 us Aruna Patel DO LAB - CHEMISTRY ORDERABLES Fi nal Result Performing Organization Address City/State/[facility] Co de Phone Number [facility] [address] * MAMMO BILAT SCREENING (10/18/2018 10:28 AM CDT) Anatomical Region Laterality Modality Breast Bilateral Mammography 10/20/2018 9:16 AM CDT Impressions 10/20/2018 9:18 AM CDT No mammographic evidence of malignancy in either breast. ASSESSMENT: BIRADS Category 1: Negative mammogram. RECOMMENDATION: Bilateral screening mammogram in one year. Thank you for allowing us to participate in the care of your patient. [facility] utilizes [employer] as a reminder system to notify patients of their next recommended mammogram. Reading Radiologist: Michelle Swartz MD on 10/20/2018 at 9:18 AM Narrative 10/20/2018 9:18 AM CDT EXAMINATION: Digital screening mammogram on 10/18/2018. Low-dose full-field digital breast tomosynthesis examination was performed with synthetic 2D images and 3D acquisitions. Computer assisted detection was utilized. PRIOR: Prior mammograms just received from [facility] dated 09/08/2016, 01/08/2015, 08/08/2013. BREAST PARENCHYMAL DENSITY: There are scattered areas of fibroglandular density. RISK ASSESSMENT CALCULATION: Not performed. FINDINGS: No suspicious masses, areas of architectural distortion or microcalcifications are evident on synthetic 2D mammogram or tomosynthesis images. There has been no significant interval change since the prior examination. Laury Alfonso MD MAMMO ORDERABLES Final Result from Last 3 Months or Most Recently Relevant to Health Maintenance Insurance [employer] PLAN [facility] SELF PAY NO INSURANCE Member Subscriber Plan / Payer (Ef fective for All Dates) Name:Suzie Corrales Member ID:Not on file Relation to Subscriber:Not on file Name:SUZIE CORRALES Subscriber ID:Not on file Address: [address] [place] [address] Payer ID:Not on file Group ID:Not on file Type:Self Pay Address: [place] [facility] SELF PAY NO INSURANCE Member Subscriber Plan / Payer (Ef fective for All Dates) Name:Suzie Corrales Member ID:Not on file Relation to Subscriber:Not on file Name:SUZIE CORRALES Subscriber ID:Not on file Address: [address] [place] [address] Payer ID:Not on file Group ID:Not on file Type:Self Pay Address: [place], [place] Care Teams Motel Clerk Relationship Specialty Start Date End Date Patrice Hanna APRN-FIRE FIGHTER PCP - General Nurse Practitioner Gerontology 08/28/21
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
== END 2025-04-10 10:00 | disposition home or self-care (01) ==
PROVIDERS: PCP Nurse Practitioner Family; Visit Provider Nurse Practitioner Family
DX: M25.511 Pain in right shoulder (principal); M25.551 Pain in right hip
CPT/HCPCS: 73030; 73502